=== PATIENT | male | born 1950 | race Caucasian/White ===

== ENCOUNTER 2019-05-08 14:24 | Outpatient (CLI) | payer MEDICARE, MEDICAID, SELFPAY ==
--- NOTE | 2019-05-08 14:35 | CT_ITS ---
WS: [id number] CT CHEST WITHOUT INTRAVENOUS CONTRAST HISTORY: Pulmonary nodule follow-up. TECHNIQUE: Contiguous 5 mm axial imaging performed on the thorax. Coronal and sagittal reformats are submitted. All CT scans at [facility] use at least one of these dose optimization techniq ues: automated exposure control; mA and/or kV adjustment per patient size (includes targeted exams wh ere dose is matched to clinical indication); or iterative reconstruction. CONTRAST: None DLP: 1004.38 mGycm COMPARISON: 04/07/2018, 06/24/2017 and 04/29/2016 Lungs and central airway: Paraseptal emphysematous changes. Mild groundglass attenuation throughout b oth lungs. Bilateral pleural thickening posteriorly. 3 mm noncalcified nodule in the lingula is stabl e over multiple prior years. Benign granuloma are also noted. Pleura: Very small bilateral pleural effusions are now evident. Heart and pericardium: Normal size heart. No pericardial effusion. Mediastinum and jonathan: Small mediastinal and hilar lymph nodes are stable. Several of these lymph node s contain central calcifications which are benign. Vessels: Mild atherosclerosis aorta with no aneurysm. Moderate to severe coronary artery calcificatio ns. Pulmonary size is normal. Chest wall and lower neck: No soft tissue masses. Upper abdomen: Extensive calcifications throughout the pancreas. Marked atrophy of the pancreas. Ther e is a new fluid collection at the pancreatic tail and inseparable from the stomach and hilum of the spleen. Fluid collection measures 3.0 x 2.6 cm. This collection is new since 06/03/2018 and probably re presents a pseudocyst associated with prior episodes of pancreatitis. There is a small amount of infl ammation in the LEFT upper quadrant. Osseous structures: Advanced degenerative changes throughout the thoracic spine. Disc space narrowing with sclerosis. CT/CT chest wo con [id number] IMPRESSION: 1. Stable 3 mm lingular pulmonary nodule and prior granulomatous disease. No a dditional follow-up necessary. 2. Paraseptal emphysema. 3. New circumscribed fluid collection inseparable from the pancreatic tail, st omach and pancreas. Collection measures 2.0 x 2.6 cm. May be a pseudocyst assoc iated with prior episodes of pancreatitis as described on 06/03/2018. Additional etiologies consider is cystic pancreatic mass. Recommend follow-up abdomen CT w ith contrast in 3-4 months. 4. Extensive calcifications of the pancreas probably from prior episodes of pa ncreatitis. 5. New very small bilateral pleural effusions. 6. Severe coronary artery atherosclerosis.
--- NOTE | 2019-05-08 14:35 | CT_ITS ---
WS: [id number] CT LUMBAR SPINE, noncontrast. HISTORY: LUMBAR AND SACRAL SPONDYLOLISTHESIS TECHNIQUE: Contiguous 2.5 mm axial imaging are performed. Sagittal and coronal reformats are submitte d and reviewed. All CT scans at [facility] use at least one of these dose optimization te chniques: automated exposure control; mA and/or kV adjustment per patient size (includes targeted exa ms where dose is matched to clinical indication); or iterative reconstruction. IV contrast: None DLP: 1294.01 mGycm COMPARISON: 11/17/2009. Same numbering pattern will be utilized on today's study as on the study from 11/17/2009. L4 anterolisthesis by 2 mm. Moderate and progressive degenerative disc disease and osteochondrosis si nce 2009. At L1-2 there is complete obliteration of the disc space with air. Sclerotic endplate martinez es in the vertebral bodies. Vacuum disc phenomenon from L1-2 to L4-5. No fracture. L1-2: Osteophytic ridging with mild bilateral foraminal narrowing. L2-3: Mild diffuse disc bulging and osteophytic ridging. Mild central narrowing. L3-4: Diffuse annular disc bulging. Mild central and foraminal stenosis. L4-5: Diffuse annular disc bulging with marked facet and ligamentum flavum hypertrophy. Mild central and bilateral foraminal stenosis. L5-S1: No significant stenosis. Partial sacralization on the RIGHT. Extensive calcification within the aorta and common iliac arteries. There is evidence for aortobifemo ral bypass surgery. CT/CT lumbar spine wo con* [id number] IMPRESSION: 1. Progressive degenerative spondylitic changes in the lumbar spine. Most sign ificant at L1-2. Near complete loss of the disc space height with osteochondros is. 2. Mild central and bilateral foraminal stenosis at L3-4 and L4-5 and mild josé miguel tral stenosis at L2-3.
== END 2019-05-08 14:25 | disposition home or self-care (01) ==
LOC: RADWPI 14:28
PROVIDERS: Family Provider Family Medicine; PCP Family Medicine; Visit Provider Family Medicine
DX: M43.18 Spondylolisthesis, sacral and sacrococcygeal region (principal); M43.16 Spondylolisthesis, lumbar region; M48.061 Spinal stenosis, lumbar region without neurogenic claudication
CPT/HCPCS: 71250; 72131

== ENCOUNTER 2019-06-08 09:24 | Outpatient (CLI) | payer MEDICARE, MEDICAID, SELFPAY ==
--- NOTE | 2019-06-08 09:28 | USCV_ITS ---
Jack June Age: 68 Gender: M : 1950 Exam Date: 06/08/2019 09:39 Ordering Phys: Jono Stone MD Technologist: Christopher Garcia Exam Location[place] [facility] [place]: BP: 128 / 72 HR: 76 Rhythm: Sinus Technical Quality: Adequate MEASUREMENTS (Male / Female) Normal Values 2D ECHO LV Diastolic Diameter PLAX 4.9 cm 4.2 - 5.9 / 3.9 - 5.3 cm LV Systolic Diameter PLAX 3.6 cm IVS Diastolic Thickness 1.0 cm 0.6 - 1.0 / 0.6 - 0.9 cm IVS Systolic Thickness 1.2 cm LVPW Diastolic Thickness 1.2 cm 0.6 - 1.0 / 0.6 - 0.9 cm LVPW Systolic Thickness 1.5 cm LVOT Diameter 2.0 cm LV Ejection Fraction 2D Teich 51.0 % LV Ejection Fraction MOD 2C 37.0 % LV Ejection Fraction 2C AL 37.9 % LA Diameter 4.9 cm LA Width 3.9 cm LA Height 5.6 cm RA Width 3.4 cm RA Height 3.8 cm M-MODE LV Diastolic Diameter MM 5.8 cm 4.2 - 5.9 / 3.9 - 5.3 cm LV Systolic Diameter MM 3.7 cm LV Ejection Fraction MM Teich 65.5 % IVS Diastolic Thickness MM 1.4 cm 0.6 - 1.0 / 0.6 - 0.9 cm IVS Systolic Thickness MM 2.1 cm LVPW Diastolic Thickness MM 1.4 cm 0.6 - 1.0 / 0.6 - 0.9 cm LVPW Systolic Thickness MM 2.7 cm RV Diastolic Diameter MM 1.2 cm Aortic Annulus Diameter 3.4 cm LA Ao Ratio MM 1.4 MV E Point Septal Separation 1.6 cm DOPPLER AV Peak Velocity 151.0 cm/s LVOT Peak Velocity 81.0 cm/s AV Area Cont Eq vti 1.7 cm squared AV Area Cont Eq pk 1.7 cm squared MV Area PHT 1.8 cm squared Mitral E to A Ratio 1.0 MV E' Velocity 6.0 cm/s Mitral E to MV E' Ratio 27.4 Mitral E to LV E' Lateral Ratio 23.2 Mitral E to LV E' Septal Ratio 34.3 TR Peak Velocity 160.0 cm/s TR Peak Gradient 10.2 mmHg TV Peak E Velocity 59.0 cm/s Right Atrial Pressure 3.0 mmHg Pulmonary Artery Systolic Pressu 13.2 mmHg FINDINGS Left Ventricle Normal left ventricular cavity size. Mildly reduced left ventricular systolic function. No regional wall motion abnormalities except mild global hypokinesia. Left ventricular ejection fraction is estimated at 50 %. Grade I/IV diastolic dysfunction (abnormal relaxation filling pattern), normal to mildly elevated filling pressures. Right Ventricle The right ventricle is normal in size and function. Right Atrium The right atrium is normal in size. Left Atrium Moderately increased left atrial size. Mitral Valve Moderately thickened mitral valve. No mitral valve stenosis. Moderate mitral valve regurgitation. Aortic Valve Structurally normal aortic valve without significant sclerosis or stenosis. There is no aortic regurgitation. Tricuspid Valve Structurally normal tricuspid valve without significant stenosis or regurgitation. Pulmonary artery systolic pressure is normal. Pulmonic Valve Trace pulmonary valve regurgitation. Pericardium Normal pericardium without effusion. Aorta Normal ascending aorta dimension. CONCLUSIONS 1-Normal left ventricular cavity size. Mildly reduced left ventricular systolic function. No regional wall motion abnormalities except mild global hypokinesia. Left ventricular ejection fraction is estimated at 50 %. Grade I/IV diastolic dysfunction (abnormal relaxation filling pattern), normal to mildly elevated filling pressures. 2-Moderately increased left atrial size. 3-Moderately thickened mitral valve. No mitral valve stenosis. Moderate mitral valve regurgitation. 4-Structurally normal aortic valve without significant sclerosis or stenosis. There is no aortic regurgitation. 5-There is no pericardial effusion. 6-Pulmonary artery systolic pressure is within normal limits. 7-Right atrial pressure is around 5 mm of mercury. 8-No significant change since the prior echocardiogram study of 10/25/2016. Gunnar Cervantes MD (Electronically Signed) Final Date: 09 June 2019 16:35 S
== END 2019-06-08 09:25 | disposition home or self-care (01) ==
LOC: US 09:26
PROVIDERS: Family Provider Family Medicine; PCP Family Medicine; Visit Provider Family Medicine
DX: I47.1 Supraventricular tachycardia (principal); I34.0 Nonrheumatic mitral (valve) insufficiency
CPT/HCPCS: 93306

== ENCOUNTER 2019-06-25 09:53 | Outpatient (CLI) | payer MEDICARE, MEDICAID, SELFPAY ==
--- NOTE | 2019-06-25 10:30 | CT_ITS ---
WS: [id number] CT ANGIOGRAM CAROTID ARTERIES HISTORY: Carotid artery stenosis TECHNIQUE: CT angiogram is performed of the carotid arteries. During arterial injection imaging is ob tained from the skull base to the aortic arch in 1.25 mm imaging. Coronal and sagittal reformats are submitted, MIP imaging also reviewed. Additional multiplanar reformats of the carotid arteries are mortensen bmitted. NASCET criteria utilized. All CT scans at [facility] use at least one of these d ose optimization techniques: automated exposure control; mA and/or kV adjustment per patient size (in cludes targeted exams where dose is matched to clinical indication); or iterative reconstruction. CONTRAST: Omnipaque 350; 95 mL IV. DLP: 990.0 mGycm COMPARISON: 08/30/2018 Carotid ultrasound 03/15/2019 Right carotid: Common carotid artery: Arises normally from the innominate artery. Scattered calcified plaque with no stenosis. Internal carotid artery: Heavy calcified plaque at the carotid bifurcation extending into the proxima l ICA. Very high-grade stenosis in the proximal ICA, just distal to the largest amount of plaque at t he bifurcation. There is a prominent loop in the proximal ICA with stenosis measuring 75%. Visually t he stenosis appears closer to 90%. External carotid artery: Moderate narrowing proximal external carotid artery. Left carotid: Common carotid artery: Mild atherosclerosis at the origin from the arch. Scattered plaque in the dist al common carotid. Internal carotid artery: LEFT ICA stent is patent. External carotid artery: Patent. Right vertebral artery: Scattered calcified plaque and small caliber LEFT vertebral artery. Left vertebral artery: Arises normally from the LEFT subclavian artery. There is a moderate amount of calcified plaque at the origin. Subclavian arteries: No stenosis or abnormality identified. Upper thorax: Paraseptal emphysema. Small mediastinal and hilar lymph nodes. Thyroid gland: Normal. Osseous structures: Advanced degenerative disc disease with sclerotic bone changes at C5-6. Skull base: Extensive atherosclerosis of the intracranial carotid arteries. CT/CT angio neck [id number] IMPRESSION: 1. High-grade stenosis proximal RIGHT ICA. Stenosis calculated at 75%. Visuall y the stenosis appears closer to 90%. 2. Prior LEFT ICA stent is patent with no significant stenosis. 3. Congenitally small RIGHT vertebral artery. 4. Chronic emphysema.
[2019-06-25] MEDS: iohexol 350 mg/mL 100 mL Btl IV (10:54)
== END 2019-06-25 09:54 | disposition home or self-care (01) ==
LOC: RADWPI 10:02
PROVIDERS: Family Provider Family Medicine; PCP Family Medicine; Visit Provider Internal Medicine Cardiovascular Disease
DX: I65.23 Occlusion and stenosis of bilateral carotid arteries (principal); J43.9 Emphysema, unspecified
CPT/HCPCS: 70498; Q9967

== ENCOUNTER 2019-10-23 09:23 | Outpatient (CLI) | payer MEDICARE, MEDICAID, SELFPAY ==
--- NOTE | 2019-10-23 09:28 | CT_ITS ---
WS: [id number] CT ABDOMEN CONTRAST TECHNIQUE: Contrast enhanced CT of the abdomen with coronal and sagittal reformatted images. CLINICAL INFORMATION: PANCREATIC ABNORMALITY COMPARISON: CT 3 2018 DLP: 802.[address] scans at [facility] use at least one of these dose optimization techniques: automat ed exposure control; mA and/or kV adjustment per patient size (includes targeted exams where dose is matched to clinical indication); or iterative reconstruction. FINDINGS: Again seen are findings of chronic calcific pancreatitis. Pancreatic ductal dilatation progressed sin ce the prior examination. Peripheral enhancing low-attenuation lesion involving the pancreatic tail i s new from previous likely representing pseudocyst in this patient with chronic pancreatitis. This me asures approximately 4.5 x 4.4 CM. Additional smaller pseudocysts are lobular pancreatic dilatation a long the body of the pancreas measuring 18 mm. Portal vein and splenic vein are patent patent. Adrenal glands are normal. Normal renal parenchymal e nhancement. Right renal cortical atrophy. Slight atelectasis in the lung bases. Normal caliber abdomi nal aorta with dense aortic calcification. Degenerative disc disease with disc space narrowing worse at T9-T10 and and L1-2. L5 is sacralized t he right CT/CT abdomen w con* [id number] IMPRESSION: 1. Changes of chronic pancreatitis with dense calcification and pancreatic atr ophy. 2. Lobular dilatation of the pancreatic duct with low-attenuation lesion invol ving the pancreatic tail.. This measures 4.4 x 4.5 cm most likely represents ps eudocyst. Serous and mucinous neoplasm not entirely excluded. This can be furth er evaluated with ERCP and/or short interval follow-up [address] abdomen pelvi s contrast 3. Right renal cortical atrophy. 4. No other significant changes from previous.
[2019-10-23] MEDS: iohexol 300 mg/mL 100 mL Btl IV (09:55)
== END 2019-10-23 09:24 | disposition home or self-care (01) ==
LOC: RADWPI 09:26
PROVIDERS: Family Provider Family Medicine; PCP Family Medicine; Visit Provider Family Medicine
DX: Q45.3 Other congenital malformations of pancreas and pancreatic duct (principal); K86.89 Other specified diseases of pancreas; N26.1 Atrophy of kidney (terminal)
CPT/HCPCS: 74160; Q9967

== ENCOUNTER 2019-10-29 05:44 | Inpatient (IN) | payer MEDICARE, MEDICAID, SELFPAY ==
--- NOTE | 2019-10-24 11:14 | ANES.PREANE2 ---
Pre-Anesthetic Assessment Pre-Anesthetic Assessment: Height/Weight: Height 1.75 m Weight 92.986 kg Preop Diagnosis: right carotid endarterectomy Proposed Procedure: Operation Date: 10/29/19 08:30 Proposed Procedures p Carotid Endarterectomy(Right) - Truong Kirby MD Familial anesthetic complications: None Social: Social History: Tobacco and No alcohol Exam: Pre-Anes Outpt Exam: alert, oriented x 3, clear to auscultation bilaterally and regular rate & rhythm Airway: Cervical ROM: WNL MP: 2 Dentition: False and Other (missing) Pulmonary: Pulmonary: COPD CV/HEM: CV/HEM: CAD (2-3 stents last one 2-3 years ago- clopidogrel (last took yesterday)), HTN and RI (2-3 years) Comments: Mitral regruge Metabolic: Metabolic: DM, Hyperlipidemia and Morbid obesity Neuropsych: Comments: carotid stenosis Anesthetic Plan: ASA status: 4 Anesthesia: General Risk of > 500 ml blood loss (7ml/kg in children): No PFSH Anesthesia PFSH: Medical History (Updated 10/11/19 @ 14:41 by Truong Kirby MD) BPH (benign prostatic hyperplasia) Carotid stent occlusion COPD (chronic obstructive pulmonary disease) Erectile dysfunction Hypertension Mitral regurgitation Surgical History S/P carotid endarterectomy Family History Father , AT AGE 63 CAD (coronary artery disease) Mother , AT AGE 93 No problems noted. Social History Smoking and tobacco status: current every day smoker cigarettes Packs smoked per day: 1 Alcohol intake: never Marital status: service: Yes Current occupational status: disabled History of recent travel: No Data Anesthesia Cardiac Studies: No Data to Display
[2019-10-24 11:22] LABS: Add Urine Microscopic? NO
[2019-10-24 11:35] LABS: INR 0.94 (0.8-1.2)
[2019-10-24 11:36] LABS: Basophils % 0.2 %; Eosinophils # 0.2 10^3/uL (0.0-0.8); Eosinophils % 2.8 %; Hematocrit 42.9 % (42.0-52.0); Hemoglobin 13.6 g/dL (11.7-16.6); Lymphocytes # 1.3 10^3/uL (0.8-4.8); Lymphocytes % 16.3 %; Mean Corpuscular HGB Conc 31.7 g/dL (30.0-36.0); Mean Corpuscular Hemoglobin 31.5 pg (28.0-34.0); Mean Corpuscular Volume 99.3 fL (80-94); Mean Platelet Volume 11.8 fL (7.4-10.4); Monocytes # 1.2 10^3/uL (0.2-0.9); Monocytes % 14.1 %; Neutrophils # 5.39 10^3/uL (1.8-7.7); Neutrophils % 66.2 %; Nucleated Red Blood Cells % 0 %; Platelet Count 138 10^3/cmm (130-400); Red Blood Count 4.32 10^6/uL (4.1-5.3); Red Cell Distribution Width 13.6 % (12.1-15.1); White Blood Count 8.2 10^3/uL (4.0-10.0)
[2019-10-24 11:41] LABS: Blood Urea Nitrogen 21 mg/dL (8-23); Calcium 9.6 mg/dL (8.5-10.5); Carbon Dioxide 27 mmol/L (22-29); Chloride 102 mmol/L (98-107); Glomerular Filtration Rate 60.2 mL/min (90-130); Glucose 109 mg/dL (65-115); Osmolality Calculated 283 mOsm/kg (285-295); Sodium 138 mmol/L (136-145)
[2019-10-24 12:29] LABS: Bilirubin Urine Neg (NEGATIVE); Blood Urine Neg (Negative); Glucose Urine UA Norm (Normal); Ketones Urine Negative (Negative); Leukocyte Esterase Urine Negative (Negative); Nitrate Urine Negative (Negative); Protein Urine Neg (Negative); Urine Appearance Clear (CLEAR); Urine Color Yellow (Yellow); Urobilinogen Urine Norm (Negative); pH Urine 5 (5-7)
[2019-10-26 07:17] LABS: Coronavirus Lab Test PTC NOT DETECTED
[2019-10-29] VITALS (17 sets, daily range): BP systolic 96–159; BP diastolic 45–64; PULSE 51–73; RESP 12–21; TEMP 36.5–36.7; O2SAT 92–99; BMI 30.2
--- NOTE | 2019-10-29 05:52 | XRR_ITS ---
PROCEDURE INFORMATION: Exam: XR Chest, 1 View Exam date and time: 10/29/2019 6:21 AM Age: 68 years old Clinical indication: Pre-operative exam; Cardiovascular screening and respiratory screening exam; Additional info: Carotid endarterectomy right TECHNIQUE: Imaging protocol: XR of the chest Views: 1 view. COMPARISON: [place] chest [facility] [place] [id number] 05/08/2019 2:41 PM FINDINGS: Lungs: Hyperinflation of the lungs with changes of COPD. No consolidation. Pleural space: No pleural effusion. No pneumothorax. Heart/Mediastinum: No cardiomegaly. Bones/joints: No acute fracture. XR/XR chest 1V portable [id number] IMPRESSION: No acute findings.
--- NOTE | 2019-10-29 05:52 | ECG_ITS ---
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 Measurements Intervals [place] Rate: 75 P: 11 WA: 187 QRS: -61 QRSD: 115 T: 71 QT: 364 QTc: 409 Interpretive Statements SINUS RHYTHM WITH SINUS ARRHYTHMIA PATTERN CONSISTENT WITH PULMONARY DISEASE LEFT ANTERIOR FASCICULAR BLOCK [QRS AXIS <= -45, QR IN I, RS IN II] Compared to ECG 10/27/2016 04:50:07 Left anterior fascicular block now present Intraventricular conduction delay no longer present Poor R-wave progression no longer present Electronically Signed On 10-29-2019 21:39:54 CDT by Aleksandra Potts M.D. [email or web address].Kuke Musicfranklin county memorial hospitalLockboxlouis stokes [id number]
[2019-10-29] MEDS: sodium chloride 0.9% 1,000 ML 30 ML IV (06:29)
[2019-10-29] MEDS: ipratropium-albuterol 3 mL Neb INHALATION (07:46)
--- NOTE | 2019-10-29 08:15 | W.PM.OPSUD ---
Surgery/Procedure H&P Update DATE OF PROCEDURE: October 29, 2019 DATE H&P PERFORMED: 10/11/19 H&P UPDATE INFORMATION: I have reviewed H&P completed within last 30 days, I have examined patient prior to procedure and No changes to prior documentation PREOP DIAGNOSIS: right carotid endarterectomy PRIMARY INDICATION FOR PROCEDURE: High-grade right internal carotid artery stenosis calculated at 75% though visually felt to be closer to 90% upon radiology interpretation. Rationale for surgery was carefully discussed Mr. June. Rationale to attempt to reduce his statistical increased risk for spontaneous CVA related to this lesion was reviewed. Risk of surgery including risk of bleeding, stroke, phonation difficulties, swallowing difficulties, restenosis, or inability to complete the procedure were frankly discussed. Appropriate consents have been reviewed and signed. PLANNED PROCEDURE: Operation Date: 10/29/19 07:45 Proposed Procedures p Carotid Endarterectomy(Right) - Truong Kirby MD
[2019-10-29] MEDS: heparin,porcine 1,000 unit/mL INJ 1 mL 1000 UNIT IRRIGATION (09:00)
[2019-10-29] MEDS: vancomycin 1,000 MG SDV 1000 MG IRRIGATION (09:17)
--- NOTE | 2019-10-29 11:48 | PC.NURSE ---
1130 Patient to ICU 5 via bed by OR staff. Vitals WNL. Patient moves all 4 extremities, no facial weakness, DAIJA, patient drowsy.
--- NOTE | 2019-10-29 11:59 | PM.OP ---
Operative Report Date of procedure: October 29, 2019 Pre-op Diagnosis: right internal carotid artery stenosis Post-op diagnosis: same Procedure Done: Right carotid endarterectomy with patch angioplasty Implants: Hemashield patch Specimens removed/disposition: Carotid artery plaque Surgeon: Truong Kirby Anesthesia: General Complications: None: Grossly neurologically intact immediately postop Condition: stable Disposition: ICU Brief History: 68-year-old gentleman with known carotid artery disease status post attempted left carotid endarterectomy which resulted in subsequent carotid artery stent several years ago. He now presents during surveillance with a right carotid artery stenosis at the bifurcation which is been determined to be 75% by CTA measurement though radiology states that visually it appears to be 90%. Correction of this stenosis was recommended to reduce the statistical increased risk for spontaneous CVA. The option of carotid endarterectomy versus referral for carotid stenting was discussed with Mr. June. He wished to proceed with surgery as opposed to primary stenting. Details the risk of the procedure were again carefully and frankly discussed. A proper consents have been reviewed and signed. Procedure: Mr. June was placed on the OR table and underwent general endotracheal anesthesia with a neurological monitoring endotracheal tube as well as placement of a right radial arterial line. Bihemispheric monitoring pads were placed as well as grounding and sensing pads for nerve conduction evaluation during neck dissection.The entire upper chest and right neck were sterilely prepped and draped. Incision was made along the anterior border of the sternomastoid muscle and carried down to the platysma with cautery. Dissection from this point forward was carried out utilizing Metzenbaum scissors and limited use of bipolar cautery. The internal jugular vein was dissected free and the facial vein was ligated, oversewn, and divided. Dissection was continued down through the ansa cervicalis with preservation of major branches. Minor branches were divided if required to allow for adequate exposure. Nerve conduction evaluation was performed throughout the dissection for protection of the recurrent nerve. We confirmed proper monitoring function by receiving positive feedback with touching of the vagus nerve. We subsequently reached the common carotid artery. There was a fairly intense inflammatory response throughout the course of the carotid inside the sheath. I suspect this was a similar finding from his prior left carotid endarterectomy that resulted in aborting the procedure and proceeding to a carotid stent. Dissection was then continued proximally to distally across the bifurcation. Vessel loops were placed around the common carotid artery, internal carotid artery, and external carotid artery. Distally, the base of the hypoglossal nerve could be identified and was protected. The internal carotid artery disease went fairly high and extended above the level of the mandibular angle. This did require some traction in this region, but great care was taken to minimize pressure to the hypoglossal nerve, which was protected. Care was taken during this dissection to avoid injury to the vagus nerve. The patient was then heparinized with 10,000 units. The systolic blood pressure was elevated to 160. Following this, in a rapid sequenced fashion, the distal internal carotid artery was clamped followed by clamping of the common carotid artery and external carotid artery. #11 scalpel blade was used to open the common carotid artery proximally. Steiner scissors were then utilized to extend this arteriotomy across the distal common carotid artery and ulcerated very stenotic plaque and continue this further at the bifurcation across the calcific plaque in the internal carotid artery until we had reached normal intima. The internal carotid artery clamp was briefly flashed with evidence of brisk back bleeding, therefore we elected not to shunt. It should be noted that bi-hemispheric oximetry was recorded throughout the procedure. Next, a freer elevator was utilized to create a dissection plane the plaque from intima at the proximal portion of the arteriotomy. This was then divided with a #11 scalpel blade. This plaque was then further dissected along the intimal plane proximally to distally across the bifurcation. Utilizing an everting technique, plaque was removed from the external carotid artery with brisk flow. This plaque was then dissected free up the internal carotid artery to a feathered edge. Heparinized saline solution was utilized to remove any loose debris. Next, a Hemashield patch was brought into the field and sewn into position utilizing a running 6-0 Prolene suture, thereby completing our patch angioplasty. At the completion of the patch, the external carotid artery was opened followed by the common carotid artery and finally the internal carotid artery, thereby reestablishing cerebral flow. Areas of extravasation were repaired with 6-0 Prolene suture. After 5 minutes, heparin was reversed with protamine. Hemostasis was confirmed. The wound was irrigated with antibiotic solution. A small, flat, Elgin-Kearns drain was placed in the wound and connected to bulb suction. Sponge and needle count was correct. The wound was then closed in 2 layers of 3-0 Vicryl suture. Skin was reapproximated in a subcuticular manner with 4-0 Monocryl suture. A pressure dressing was then applied. The patient was awakened from anesthesia and spontaneous movement of all extremities as well as movement to command was noted. The patient was then transferred to the ICU in stable condition. We did certified travel counselor with his sister at completion of the procedure. Mr. June will be monitored in the ICU for the next 24 hours.
[2019-10-29] MEDS: morphine 4 mg/mL SDV 1 mL 2 MG IVP (12:33)
--- NOTE | 2019-10-29 12:35 | PC.RESP ---
Smoking Cessation and Pulmonary Rehab information sent to patient.
[2019-10-29 12:47] LABS: Glucose Point of Care 182 mg/dL (70-110)
[2019-10-29] MEDS: HYDROcodone-acetaminophen 5-325 mg Tablet 1 TAB PO ×2 (12:55→16:35)
[2019-10-29] MEDS: lactated ringers 1,000 ML 100 ML IV ×2 (12:56→23:36)
[2019-10-29] MEDS: sodium chloride 0.9% 500 ML 999 ML IV (13:57)
--- NOTE | 2019-10-29 13:58 | PC.NURSE ---
LEFT EYE PAIN patient complains of left eye pain. No visual field deficits, DAIJA. Patient states this does happen occasionally. No neuro deficits.
--- NOTE | 2019-10-29 16:55 | PC.NURSE ---
Arterial line removed, no complications, site covered with 2x2 and bioocclusive.
[2019-10-29] MEDS: aspirin 81 mg Chew Tablet PO (17:30)
[2019-10-29] MEDS: ceFAZolin 1,000 MG in sodium chloride 0.9% (plus) 50 ML 100 MG IV (17:30)
[2019-10-29] MEDS: oxyCODONE-APAP 5-325 mg Tablet 1 TAB PO (20:22)
[2019-10-29] MEDS: trazodone 150 mg Tablet 300 MG PO (20:23)
[2019-10-30] VITALS (13 sets, daily range): BP systolic 102–142; BP diastolic 44–57; PULSE 56–87; RESP 12–20; TEMP 36.9; O2SAT 86–97
[2019-10-30] MEDS: ceFAZolin 1,000 MG in sodium chloride 0.9% (plus) 50 ML 100 MG IV ×2 (00:25→08:18)
[2019-10-30] MEDS: morphine 4 mg/mL SDV 1 mL 2 MG IVP (00:26)
[2019-10-30] MEDS: HYDROcodone-acetaminophen 5-325 mg Tablet 1 TAB PO (03:41)
[2019-10-30 04:20] LABS: Basophils % 0.1 %; Hemoglobin 11.3 g/dL (11.7-16.6); Lymphocytes % 9.9 %; Mean Corpuscular HGB Conc 31.4 g/dL (30.0-36.0); Mean Corpuscular Hemoglobin 32.1 pg (28.0-34.0); Mean Corpuscular Volume 102.3 fL (80-94); Mean Platelet Volume 11.9 fL (7.4-10.4); Monocytes # 1.2 10^3/uL (0.2-0.9); Neutrophils # 7.94 10^3/uL (1.8-7.7); Neutrophils % 77.7 %; Nucleated Red Blood Cells % 0 %; Platelet Count 119 10^3/cmm (130-400); Red Blood Count 3.52 10^6/uL (4.1-5.3); Red Cell Distribution Width 14.3 % (12.1-15.1); White Blood Count 10.2 10^3/uL (4.0-10.0)
[2019-10-30 05:08] LABS: Alanine Aminotransferase 18 U/L (0-41); Albumin Level 3.4 g/dL (3.5-5.2); Alkaline Phosphatase 54 IU/L (40-130); Anion Gap 12.8 (5-19); Aspartate Amino Transferase 22 U/L (0-40); Blood Urea Nitrogen 33 mg/dL (8-23); Calcium 7.8 mg/dL (8.5-10.5); Carbon Dioxide 21 mmol/L (22-29); Chloride 106 mmol/L (98-107); Globulin 2.4 g/dL (1.3-4.6); Glomerular Filtration Rate 50.4 mL/min (90-130); Glucose 111 mg/dL (65-115); Osmolality Calculated 278 mOsm/kg (285-295); Potassium 4.8 mmol/L (3.5-5.1); Sodium 135 mmol/L (136-145); Total Bilirubin 0.2 mg/dL (0.15-1.2); Total Protein 5.8 g/dL (6.6-8.7)
--- NOTE | 2019-10-30 07:02 | P.DS_ITS ---
Discharge Providers Date of Admission: 10/29/19 05:44 Date of Discharge: October 30, 2019 Attending Provider at Admission: Truong Kirby MD Attending Provider at Discharge: Truong Kirby MD Primary Care Provider: Jono Stone MD Diagnoses at Discharge Discharge Diagnosis (1) S/P carotid endarterectomy: Status: Acute Reason for Visit Reason for Visit: carotid Hospital Course Hospital Course: 68-year-old gentleman with a high-grade right ICA stenosis of 75% though visually appears to be close to 90%, with prior history for left carotid endarterectomy which was aborted for carotid stent. Elective right carotid endarterectomy recommended to reduce the statistical increased risk for spontaneous CVA related to this high-grade lesion. He was electively admitted yesterday underwent carotid endarterectomy on the right side with patch ang ioplasty. Postoperative, he convalesced in the ICU where he remained neurologically intact and stable. Low RAMÓN drain output. Pain under good control. RAMÓN drain was discontinued this morning. Incision is clean and dry. No swallowing difficulties. No phonation problems. He will be discharged home today in stable condition. Physical Exam Const: COMMON NORMALS: patient oriented x3 Neck/C-Spine: COMMON NORMALS: no lymphadenopathy, supple and No carotid bruits OTHER: Right neck incision is intact and healing well. RAMÓN drain removed without difficulty. Low RAMÓN drain output overnight. Neuro: COMMON NORMALS: patient oriented x3, no focal motor deficits and no sensory deficits noted Urinary Catheter Management^: Foreman: Cath Placed During This Visit: yes, but has since been removed by the nurse Reason for Continuing Indwelling Catheter: Not indwelling catheter Urinary Catheter Date of Insertion: 10/29/19 Urinary Catheter Time of Insertion: 08:55 Date Urinary Catheter Removed: 10/29/19 Time Urinary Catheter Discontinued: 18:33 Discharge Data Data Completed and Pending: Completed Studies During Hospitalization Category Date Time Status XR chest 1V donald ble [id number] Routine Exams 10/29/19 05:52 Completed Pending at discharge Category Date Time Status Leukocyte Reduced RBC Routine Lab 10/24/19 11:00 Results Type and Screen - Cardiac Routine Lab 10/24/19 11:00 Results Pathology: Surgic al [PTH] Routine Pth 10/29/19 10:35 Received Labs from last 24 hours 10/30/19 10/30/19 10/29/19 04:00 04:00 12:42 WBC 10.2 H RBC 3.52 L Hgb 11.3 L Hct 36.0 L MCV 102.3 H MCH 32.1 MCHC 31.4 RDW 14.3 Plt Count 119 L MPV 11.9 H Neut % (Auto) 77.7 Lymph % (Auto) 9.9 [place] % (Auto) 12.0 Eos % (Auto) 0.0 Baso % (Auto) 0.1 Neut # (Auto) 7.94 H Lymph # (Auto) 1.0 [place] # (Auto) 1.2 H Eos # (Auto) 0.0 Baso # (Auto) 0.0 Nucleated RBC % (a uto) 0 Nucleated RBCs # 0.0 Sodium 135 L Potassium 4.8 Chloride 106 Carbon Dioxide 21 L Anion Gap 12.8 BUN 33 H Creatinine 1.4 H GFR Calculation 50.4 L Glucose 111 POC Glucose 182 Calculated Osmolal ity 278 L Calcium 7.8 L Magnesium 2.0 Total Bilirubin 0.2 AST 22 ALT 18 Alkaline Phosphata se 54 Total Protein 5.8 L Albumin 3.4 L Globulin 2.4 Blood Type Rho(D) Type Antibody Screen Crossmatch 10/24/19 11:00 WBC RBC Hgb Hct MCV MCH MCHC RDW Plt Count MPV Neut % (Auto) Lymph % (Auto) [place] % (Auto) Eos % (Auto) Baso % (Auto) Neut # (Auto) Lymph # (Auto) [place] # (Auto) Eos # (Auto) Baso # (Auto) Nucleated RBC % (a uto) Nucleated RBCs # Sodium Potassium Chloride Carbon Dioxide Anion Gap BUN Creatinine GFR Calculation Glucose POC Glucose Calculated Osmolal ity Calcium Magnesium Total Bilirubin AST ALT Alkaline Phosphata se Total Protein Albumin Globulin Blood Type A Positive Rho(D) Type Positive Antibody Screen Negative Crossmatch See Detail Vitals: Last Vital Signs Temp 98.4 F 10/30/19 00:00 Pulse 59 L 10/30/19 06:00 Resp 18 10/30/19 06:00 BP 127/54 10/30/19 06:00 Pulse Ox 96 10/30/19 06:00 Discharge Plan Discharge Patient Disposition: Home Condition: Stable Prescriptions: New aspirin 81 mg tablet,chewable 81 mg PO DAILY Qty: 100 RF: 0 Continued allopurinol 100 mg tablet 100 mg PO DAILY RF: 0 amlodipine 10 mg tablet 10 mg PO DAILY RF: 0 atorvastatin 40 mg tablet 40 mg PO DAILY RF: 0 isosorbide mononitrate 30 mg tablet extended release 24 hr 30 mg PO DAILY RF: 0 clopidogrel 75 mg tablet 75 mg PO DAILY RF: 0 spironolactone 25 mg tablet 25 mg PO DAILY RF: 0 tamsulosin 0.4 mg capsule 0.4 mg PO DAILY RF: 0 trazodone 150 mg tablet 300 mg PO BEDTIME RF: 0 albuterol sulfate [Ventolin HFA] 90 mcg/actuation HFA aerosol inhaler 1 puff INHALATION QID PRN (Reason: Wheezing) RF: 0 lisinopril 10 mg tablet 10 mg PO BID RF: 0 fluticasone propion-salmeterol [Advair Diskus] 250-50 mcg/dose blister with device 1 inh INHALATION BID RF: 0 Incruse Ellipta 62.5 mcg/actuation blister with device 1 inh INHALATION DAILY RF: 0 metoprolol tartrate 25 mg tablet 25 mg PO DAILY RF: 0 venlafaxine 150 mg capsule,extended release 24hr 150 mg PO DAILY RF: 0 Discharge Orders: Discharge Order (Routine); Ordered 10/30/19 Ordered By: Truong Kirby Referrals: Truong Kirby MD [Physician] - 11/08/19 Discharge Diet: Usual diet Discharge Activity: Limit activity as instructed Activity Restrictions/Additional Instructions: Remove surgical bandage tomorrow. May begin showers tomorrow. No swimming or tub baths x2 weeks. No heavy lifting or pulling x2 weeks. Report any neck swelling, incision redness, fever, or incision drainage. Discharge Attestations Time Spent in Discharge Care*: less than 30 min Specific Discharge Activities: Specific discharge activities: educating patient, discussing with assistant case manager/social workers/dc planners, documenting/other paperwork and evaluating patient/reviewing data Time Spent in Smoking Cessation: Time spent discussing smoking cessation with patient: 3 to 10 minutes Status at Discharge: Cognitive status at discharge: cognitively intact , Functional status at discharge: independent ambulation Overall status at discharge: patient is progressing back to baseline Quality Metrics Clinical Quality Measures During this hospital stay, did patient experience: None Coding Level of Care Code Acute It Business Analyst for [facility] Fwd Diagnoses S/P carotid endarterectomy Z98.890
[2019-10-30] MEDS: aspirin 325 mg Tablet PO (08:15)
[2019-10-30] MEDS: spironolactone 25 mg Tablet PO (08:15)
[2019-10-30] MEDS: venlafaxine ER (24HR) 150 mg Capsule PO (08:15)
[2019-10-30] MEDS: allopurinol 100 mg Tablet PO (08:15)
[2019-10-30] MEDS: tamsulosin 0.4 mg Capsule PO (08:15)
[2019-10-30] MEDS: atorvastatin 40 mg Tablet PO (08:16)
[2019-10-30] MEDS: amlodipine 10 mg Tablet PO (08:16)
[2019-10-30] MEDS: pantoprazole DR 40 mg Tablet PO (08:16)
[2019-10-30] MEDS: isosorbide mononitrate ER 30 mg Tablet PO (08:16)
[2019-10-30] MEDS: metoprolol tartrate 25 mg Tablet PO (08:16)
[2019-10-30] MEDS: lisinopril 10 mg Tablet PO (08:16)
--- NOTE | 2019-10-30 09:19 | PC.NURSE ---
Discharge Pt was taken to family members car by wheelchair at 0910. All belongings with patient at time
== END 2019-10-30 09:32 | disposition home or self-care (01) | DRG 39 ==
LOC: OR 06:01 → ICU 07:00
PROVIDERS: Admitting Provider Thoracic Surgery (Cardiothoracic Vascular Surgery); PCP Family Medicine; Visit Provider Thoracic Surgery (Cardiothoracic Vascular Surgery)
PROC: 03CK0ZZ Extirpation of Matter from Right Internal Carotid Artery, Open Approach (ICD-10-PCS; CPT 35301; principal; 2019-10-29 07:45)
DX: I65.21 Occlusion and stenosis of right carotid artery (principal); Z79.02 Long term (current) use of antithrombotics/antiplatelets; J44.9 Chronic obstructive pulmonary disease, unspecified; E78.5 Hyperlipidemia, unspecified; E66.01 Morbid (severe) obesity due to excess calories; Z68.30 Body mass index [BMI] 30.0-30.9, adult; I25.10 Atherosclerotic heart disease of native coronary artery without angina pectoris; Z95.5 Presence of coronary angioplasty implant and graft; I10 Essential (primary) hypertension; I25.2 Old myocardial infarction; I34.0 Nonrheumatic mitral (valve) insufficiency; N40.0 Benign prostatic hyperplasia without lower urinary tract symptoms; F17.210 Nicotine dependence, cigarettes, uncomplicated
CPT/HCPCS: 12345; 36415; 36416; 71045; 80048; 80053; 81003; 82962; 83735; 85025; 85610; 86850; 86900; 86920; 87635; 88304; 93005; 94640; 96375; J0330; J0690; J1100; J1644; J2250; J2270; J2370; J2405; J2704; J2720; J2765; J3010; J3370; J3490; J7030; J7040

== ENCOUNTER 2019-12-14 04:37 | Inpatient (IN) | payer MEDICARE, MEDICAID, SELFPAY ==
[2019-12-14] VITALS (19 sets, daily range): BP systolic 140–193; BP diastolic 67–102; PULSE 76–110; RESP 16–22; TEMP 36.6–37; O2SAT 87–99; BMI 29.5
--- NOTE | 2019-12-14 04:41 | XR_ITS ---
WS: [id number] Portable AP upright chest, 12/14/2019 Clinical Data: sob Comparison: Portable chest, 10/29/2019. Findings: No nodules, masses or effusions are seen. There is a minimal patchy opacity in the left low er lobe over the surface of left diaphragm. The heart is normal. The pulmonary vascularity is not inc reased. No pneumothorax is seen. The diaphragms are flattened. There is a dextroscoliosis of the thor acic spine. XR/XR chest 1V portable [id number] Impression: 1. Minimal patchy opacity in left lower lobe which could represent atelectasis or minimal pneumonia. 2. Hyperinflation.
--- NOTE | 2019-12-14 04:42 | ECG_ITS ---
[facility] Test Date: 2019-12-14 Pat Name: Jack June Department: Room: Gender: Male Relays Draftsperson: : 1950 Requested By: Bob Christopher Order Number: [id number] Elder MD: Mathieu Tejeda M.D. Measurements Intervals [place] Rate: 99 P: 48 WA: 181 QRS: -43 QRSD: 97 T: 47 QT: 314 QTc: 404 Interpretive Statements SINUS RHYTHM LEFT ATRIAL ENLARGEMENT [-0.15mV P WAVE IN V1/V2] LEFT AXIS DEVIATION [QRS AXIS < -30] INCOMPLETE RIGHT BUNDLE BRANCH BLOCK [90+ ms QRS DURATION, TERMINAL R IN V1/V2, 40+ ms S IN I/aVL/V4/V5/V6] Compared to ECG 10/29/2019 06:06:27 Atrial abnormality now present Left-axis deviation now present Incomplete right bundle-branch block now present Sinus arrhythmia no longer present Left anterior fascicular block no longer present Electronically Signed On 12-14-2019 14:59:02 CDT by Mathieu Tejeda M.D. [email or web address]
--- NOTE | 2019-12-14 04:46 | W.ED.ABDPA2 ---
Documented by User: Bob Christopher MD 12/14/19 05:27 HPI - Abdominal Pain General: Chief Complaint: Abdominal Pain Stated Complaint: abd pain Time Seen by Provider: 12/14/19 04:38 Source: patient and EMS Mode of arrival: EMS Limitations: no limitations History of Present Illness: HPI narrative: 69-year-old male who states he has a history of constipation has not had a bowel movement since 4 5 days ago. He states he has had increasing abdominal pain that got much worse tonight. He states the pain is in his left lower quadrant. He states the pain is sharp in nature. He denies any vomiting. He denies any fever. Patient also is a long-term smoker and states he has had some increased wheezing. Patient's pulse ox here is 89%. He states his pulse ox is typically a little low. He denies any chest pain. Denies any cough. MD elicited complaint: abdominal pain Pertinent past history: constipation Onset (ago): day(s) Pain Consistency: constant Location: LLQ Severity: moderate Quality: stabbing Radiation: none Migration to: no migration Exacerbating factors: nothing Relieving factors: nothing Associated Symptoms: Denies chills, dysuria and fever(s) Review of Systems Const: Denies: fever(s), chills, body aches or change in appetite Eyes: Denies: blurry vision or eye discomfort ENMT: Denies: throat pain or dental pain Card: Denies: chest pain Resp: Reports: wheezing GI: Reports: abdominal pain : Denies: dysuria Musc: Denies: neck pain or back pain Skin/Breast: Denies: rash Neuro: Denies: headache(s) Psych: Denies: depression Benjamin/Lymph: Denies: easy bruising All/Imm: Denies: urticaria PFSH ED PFSH: Medical History BPH (benign prostatic hyperplasia) Carotid stent occlusion COPD (chronic obstructive pulmonary disease) Coronary artery disease Diabetes mellitus Erectile dysfunction Hypertension Mitral regurgitation Peripheral arterial disease Surgical History History of aorto-femoral bypass History of coronary angioplasty with insertion of stent last PCI to mid LAD by Dr. Cervantes 10/26/16 History of inguinal hernia repair RIGHT Hx of appendectomy Hx of foot surgery RIGHT S/P carotid endarterectomy Family History Father , AT AGE 63 CAD (coronary artery disease) Mother , AT AGE 93 No problems noted. Social History (Updated 12/14/19 @ 15:33 by Priscilla Marie DO) Smoking and tobacco status: current every day smoker cigarettes Packs smoked per day: 1 Alcohol intake: former Former alcohol use details: occasional alcohol use in the past, denies any heavy alcohol use in the pas Marital status: service: Yes branch: [employer] Current occupational status: disabled History of recent travel: No Physical Exam Const: COMMON NORMALS: no acute distress, patient oriented x3 and healthy appearing HENMT: COMMON NORMALS: normocephalic and atraumatic HEAD & SCALP: normocephalic and atraumatic Eye: COMMON NORMALS: Equal, round and reactive pupils present and EOMs intact bilaterally PUPIL: Yes Equal, round and reactive pupils present Neck/C-Spine: COMMON NORMALS: full ROM and supple Chest: COMMONS NORMALS: normal inspection of the chest and normal palpation of entire chest wall Resp: COMMON NORMALS: normal respiratory effort, No retractions, No use of accessory muscles and clear to auscultation bilaterally AUSCULTATION: clear to auscultation bilaterally and wheezes Cardio: COMMON NORMALS: regular rate, regular rhythm and No murmurs present (Cardio) RATE: regular rate RHYTHM: regular rhythm GI: COMMON NORMALS: Normal to inspection, nondistended, normoactive bowel sounds present, Soft to palpation and no masses PALPATION: Yes Soft to palpation, Yes Firmness to palpation present (GI) and Yes Tenderness to palpation present (GI) Details: LUQ Extremity: COMMON NORMALS: normal to inspection and full ROM Neuro: COMMON NORMALS: patient oriented x3, moves all extremities and no focal motor deficits Psych: COMMON NORMALS: mental status grossly normal, Normal thought process present and cooperative THOUGHT PROCESS: Normal thought process present Skin: COMMON NORMALS: no rashes or lesions noted and no wounds GENERAL SKIN EXAM: no rashes or lesions noted Course Vital Signs: Vital signs: Vital Signs Temperature 98.6 F 12/14/19 21:08 Pulse Rate 106 H 12/14/19 21:08 Respiratory Rate 22 H 12/14/19 21:08 Blood Pressure 154/74 12/14/19 21:08 Pulse Oximetry 95 12/14/19 21:08 MDM - Abdominal Pain MDM Narrative: Medical decision making narrative: Patient presents here with abdominal pain. He does have a history of constipation and it could be causing his pain. He does have left lower quadrant tenderness and will get a CT of his abdomen. Patient also has wheezing. He is a longtime smoker and is likely undiagnosed COPD. Will CT his chest along with give breathing treatments. Patient's care turned over to Dr. Galeana to follow labs and CT. Lab Data: Labs: Lab Results 12/14/19 12/14/19 12/14/19 Range/Units 05:00 05:00 05:00 WBC 19.0 H (4.0-10.0) 10^3/ uL RBC 4.31 (4.1-5.3) 10^6/u L Hgb 13.7 (11.7-16.6) g/dL Hct 42.4 (42.0-52.0) % MCV 98.4 H (80-94) fL MCH 31.8 (28.0-34.0) pg MCHC 32.3 (30.0-36.0) g/dL RDW 13.6 (12.1-15.1) % Plt Count 150 (130-400) 10^3/c mm MPV 11.5 H (7.4-10.4) fL Neut % (Auto) 86.5 % Lymph % (Auto) 2.6 % [place] % (Auto) 10.1 % Eos % (Auto) 0.1 % Baso % (Auto) 0.2 % Neut # (Auto) 16.50 H (1.8-7.7) 10^3/u L Lymph # (Auto) 0.5 L (0.8-4.8) 10^3/u L [place] # (Auto) 1.9 H (0.2-0.9) 10^3/u L Eos # (Auto) 0.0 (0.0-0.8) 10^3/u L Baso # (Auto) 0.0 (0.0-0.1) 10^3/u L Nucleated RBC % (a uto) 0 % Nucleated RBCs # 0.0 /100WBC Fibrinogen (174-498) mg/dL D-Dimer (0-0.59) ug/mIFE U Sodium 133 L (136-145) mmol/L Potassium 4.5 (3.5-5.1) mmol/L Chloride 99 (98-107) mmol/L Carbon Dioxide 23 (22-29) mmol/L Anion Gap 15.5 (5-19) BUN 20 (8-23) mg/dL Creatinine 1.0 (0.7-1.2) mg/dL GFR Calculation 74.1 L (90-130) mL/min Glucose 177 H (65-115) mg/dL Calculated Osmolal ity 277 L (285-295) mOsm/k g Calcium 9.4 (8.5-10.5) mg/dL Ferritin (30-400) ng/mL Total Bilirubin 0.4 (0.15-1.2) mg/dL AST 16 (0-40) U/L ALT 13 (0-41) U/L Alkaline Phosphata se 68 (40-130) IU/L Lactate Dehydrogen ase (135-225) U/L C-Reactive Protein (0.0-4.9) mg/L NT-Pro-B Natriuret Pep 1015 H (0-125) pg/mL Total Protein 7.2 (6.6-8.7) g/dL Albumin 4.1 (3.5-5.2) g/dL Globulin 3.1 (1.3-4.6) g/dL Lipase 119 H (13-60) U/L Procalcitonin (0-0.5) ng/mL SARS-CoV-2 Ag (Rap id) (Negative) 12/14/19 12/14/19 12/14/19 Range/Units 05:00 05:00 08:55 WBC (4.0-10.0) 10^3/ uL RBC (4.1-5.3) 10^6/u L Hgb (11.7-16.6) g/dL Hct (42.0-52.0) % MCV (80-94) fL MCH (28.0-34.0) pg MCHC (30.0-36.0) g/dL RDW (12.1-15.1) % Plt Count (130-400) 10^3/c mm MPV (7.4-10.4) fL Neut % (Auto) % Lymph % (Auto) % [place] % (Auto) % Eos % (Auto) % Baso % (Auto) % Neut # (Auto) (1.8-7.7) 10^3/u L Lymph # (Auto) (0.8-4.8) 10^3/u L [place] # (Auto) (0.2-0.9) 10^3/u L Eos # (Auto) (0.0-0.8) 10^3/u L Baso # (Auto) (0.0-0.1) 10^3/u L Nucleated RBC % (a uto) % Nucleated RBCs # /100WBC Fibrinogen 613 H (174-498) mg/dL D-Dimer >= 20.00 H (0-0.59) ug/mIFE U Sodium (136-145) mmol/L Potassium (3.5-5.1) mmol/L Chloride (98-107) mmol/L Carbon Dioxide (22-29) mmol/L Anion Gap (5-19) BUN (8-23) mg/dL Creatinine (0.7-1.2) mg/dL GFR Calculation (90-130) mL/min Glucose (65-115) mg/dL Calculated Osmolal ity (285-295) mOsm/k g Calcium (8.5-10.5) mg/dL Ferritin 163 (30-400) ng/mL Total Bilirubin (0.15-1.2) mg/dL AST (0-40) U/L ALT (0-41) U/L Alkaline Phosphata se (40-130) IU/L Lactate Dehydrogen ase 154 (135-225) U/L C-Reactive Protein 96.5 H (0.0-4.9) mg/L NT-Pro-B Natriuret Pep (0-125) pg/mL Total Protein (6.6-8.7) g/dL Albumin (3.5-5.2) g/dL Globulin (1.3-4.6) g/dL Lipase (13-60) U/L Procalcitonin 0.39 (0-0.5) ng/mL SARS-CoV-2 Ag (Rap id) Negative (Negative) Discharge Plan Discharge Patient Disposition: Admitted As Inpatient Admit Provider: Priscilla Marie Clinical Impression: Pneumonia, Chronic pancreatitis Condition: Stable Referrals: Jono Stone MD [Primary Care Provider] - Discharge Date/Time: 12/14/19 12:09 Sign Out Sign Out Data: Patient Sign Out occurred on 12/14/19 at 05:51. Patient's care was discussed, and care was transferred from to Lasha Serrano DO. Coding Level of Care Code ED Inspector Repairer [place] for Chg Fwd Exam Comprehensive Documented by User: Lasha Serrano DO 12/15/19 12:34 HPI - Abdominal Pain General: Chief Complaint: Abdominal Pain Stated Complaint: abd pain Time Seen by Provider: 12/14/19 04:38 PFSH ED PFSH: Medical History BPH (benign prostatic hyperplasia) Carotid stent occlusion COPD (chronic obstructive pulmonary disease) Coronary artery disease Diabetes mellitus Erectile dysfunction Hypertension Mitral regurgitation Peripheral arterial disease Surgical History History of aorto-femoral bypass History of coronary angioplasty with insertion of stent last PCI to mid LAD by Dr. Cervantes 10/26/16 History of inguinal hernia repair RIGHT Hx of appendectomy Hx of foot surgery RIGHT S/P carotid endarterectomy Family History Father , AT AGE 63 CAD (coronary artery disease) Mother , AT AGE 93 No problems noted. Social History (Updated 12/14/19 @ 15:33 by Priscilla Marie DO) Smoking and tobacco status: current every day smoker cigarettes Packs smoked per day: 1 Alcohol intake: former Former alcohol use details: occasional alcohol use in the past, denies any heavy alcohol use in the pas Marital status: service: Yes branch: [employer] Current occupational status: disabled History of recent travel: No Course Vital Signs: Vital signs: Vital Signs Temperature 98.6 F 12/14/19 21:08 Pulse Rate 106 H 12/14/19 21:08 Respiratory Rate 22 H 12/14/19 21:08 Blood Pressure 154/74 12/14/19 21:08 Pulse Oximetry 95 12/14/19 21:08 MDM - Abdominal Pain MDM Narrative: Medical decision making narrative: he has evidence of previous pancreatitis there is a mild elevation of lipase. He also has evidence of pneumonia bilaterally on the chest x-ray. We will go ahead and start on ceftriaxone and Zithromax and other testing for COVID. Harriet case with Dr. Marie will go ahead and admit consult general surgery he has abnormalities in the pancreas that have increased in size. Orders written Lab Data: Labs: Lab Results 12/14/19 12/14/19 12/14/19 Range/Units 05:00 05:00 05:00 WBC 19.0 H (4.0-10.0) 10^3/ uL RBC 4.31 (4.1-5.3) 10^6/u L Hgb 13.7 (11.7-16.6) g/dL Hct 42.4 (42.0-52.0) % MCV 98.4 H (80-94) fL MCH 31.8 (28.0-34.0) pg MCHC 32.3 (30.0-36.0) g/dL RDW 13.6 (12.1-15.1) % Plt Count 150 (130-400) 10^3/c mm MPV 11.5 H (7.4-10.4) fL Neut % (Auto) 86.5 % Lymph % (Auto) 2.6 % [place] % (Auto) 10.1 % Eos % (Auto) 0.1 % Baso % (Auto) 0.2 % Neut # (Auto) 16.50 H (1.8-7.7) 10^3/u L Lymph # (Auto) 0.5 L (0.8-4.8) 10^3/u L [place] # (Auto) 1.9 H (0.2-0.9) 10^3/u L Eos # (Auto) 0.0 (0.0-0.8) 10^3/u L Baso # (Auto) 0.0 (0.0-0.1) 10^3/u L Nucleated RBC % (a uto) 0 % Nucleated RBCs # 0.0 /100WBC Fibrinogen (174-498) mg/dL D-Dimer (0-0.59) ug/mIFE U Sodium 133 L (136-145) mmol/L Potassium 4.5 (3.5-5.1) mmol/L Chloride 99 (98-107) mmol/L Carbon Dioxide 23 (22-29) mmol/L Anion Gap 15.5 (5-19) BUN 20 (8-23) mg/dL Creatinine 1.0 (0.7-1.2) mg/dL GFR Calculation 74.1 L (90-130) mL/min Glucose 177 H (65-115) mg/dL Calculated Osmolal ity 277 L (285-295) mOsm/k g Calcium 9.4 (8.5-10.5) mg/dL Ferritin (30-400) ng/mL Total Bilirubin 0.4 (0.15-1.2) mg/dL AST 16 (0-40) U/L ALT 13 (0-41) U/L Alkaline Phosphata se 68 (40-130) IU/L Lactate Dehydrogen ase (135-225) U/L C-Reactive Protein (0.0-4.9) mg/L NT-Pro-B Natriuret Pep 1015 H (0-125) pg/mL Total Protein 7.2 (6.6-8.7) g/dL Albumin 4.1 (3.5-5.2) g/dL Globulin 3.1 (1.3-4.6) g/dL Lipase 119 H (13-60) U/L Procalcitonin (0-0.5) ng/mL SARS-CoV-2 Ag (Rap id) (Negative) 12/14/19 12/14/19 12/14/19 Range/Units 05:00 05:00 08:55 WBC (4.0-10.0) 10^3/ uL RBC (4.1-5.3) 10^6/u L Hgb (11.7-16.6) g/dL Hct (42.0-52.0) % MCV (80-94) fL MCH (28.0-34.0) pg MCHC (30.0-36.0) g/dL RDW (12.1-15.1) % Plt Count (130-400) 10^3/c mm MPV (7.4-10.4) fL Neut % (Auto) % Lymph % (Auto) % [place] % (Auto) % Eos % (Auto) % Baso % (Auto) % Neut # (Auto) (1.8-7.7) 10^3/u L Lymph # (Auto) (0.8-4.8) 10^3/u L [place] # (Auto) (0.2-0.9) 10^3/u L Eos # (Auto) (0.0-0.8) 10^3/u L Baso # (Auto) (0.0-0.1) 10^3/u L Nucleated RBC % (a uto) % Nucleated RBCs # /100WBC Fibrinogen 613 H (174-498) mg/dL D-Dimer >= 20.00 H (0-0.59) ug/mIFE U Sodium (136-145) mmol/L Potassium (3.5-5.1) mmol/L Chloride (98-107) mmol/L Carbon Dioxide (22-29) mmol/L Anion Gap (5-19) BUN (8-23) mg/dL Creatinine (0.7-1.2) mg/dL GFR Calculation (90-130) mL/min Glucose (65-115) mg/dL Calculated Osmolal ity (285-295) mOsm/k g Calcium (8.5-10.5) mg/dL Ferritin 163 (30-400) ng/mL Total Bilirubin (0.15-1.2) mg/dL AST (0-40) U/L ALT (0-41) U/L Alkaline Phosphata se (40-130) IU/L Lactate Dehydrogen ase 154 (135-225) U/L C-Reactive Protein 96.5 H (0.0-4.9) mg/L NT-Pro-B Natriuret Pep (0-125) pg/mL Total Protein (6.6-8.7) g/dL Albumin (3.5-5.2) g/dL Globulin (1.3-4.6) g/dL Lipase (13-60) U/L Procalcitonin 0.39 (0-0.5) ng/mL SARS-CoV-2 Ag (Rap id) Negative (Negative) Discharge Plan Discharge Patient Disposition: Admitted As Inpatient Admit Provider: Priscilla Marie Clinical Impression: Pneumonia, Chronic pancreatitis Condition: Stable Referrals: Jono Stone MD [Primary Care Provider] - Discharge Date/Time: 12/14/19 12:09 Sign Out Sign Out Data: Patient Sign Out occurred on 12/14/19 at 05:51. Patient's care was discussed, and care was transferred from to Lasha Serrano DO. Coding Level of Care Code ED Inspector Repairer [place] for Chg Fwd Exam Comprehensive
[2019-12-14] MEDS: ipratropium-albuterol 3 mL Neb INHALATION (05:04)
[2019-12-14] MEDS: morphine 4 mg/mL SDV 1 mL IVP ×5 (05:17→18:31)
[2019-12-14] MEDS: ondansetron 2 mg/ML SDV 2 mL 4 MG IVP (05:17)
--- NOTE | 2019-12-14 05:19 | CTR_ITS ---
PROCEDURE INFORMATION: Exam: CT Angiography Chest With Contrast Exam date and time: 12/14/2019 5:43 AM Age: 69 years old Clinical indication: Abdominal tenderness; Abdominal pain; Generalized; Shortness of breath; Left-sided chest pain; Patient HX: CO pain lt side chest, abd, lt shoulder; Additional info: SOB abd pain TECHNIQUE: Imaging protocol: Computed tomographic angiography of the chest with intravenous contrast. 3D rendering (Not supervised by radiologist): MIP and/or 3D reconstructed images were created by the technologist. Radiation optimization: All CT scans at this facility use at least one of these dose optimization techniques: automated exposure control; mA and/or kV adjustment per patient size (includes targeted exams where dose is matched to clinical indication); or iterative reconstruction. Contrast material: OMNI 350; Contrast volume: 95 ml; Contrast route: INTRAVENOUS (IV); COMPARISON: CT chest wo con [id number] 05/08/2019 2:41 PM RADIATION DOSE METRICS: Total DLP (mGy-cm): 1616.52 FINDINGS: Pulmonary arteries: No pulmonary emboli identified. Aorta: Mild atherosclerotic calcification of the thoracic aorta. No thoracic aortic aneurysm or dissection identified. Lungs: Moderate emphysematous changes of both lungs (especially the upper lobes). Mild patchy atelectasis and/or pneumonia in the right lower lobe posteriorly, increased from prior study. Mild atelectasis and/or pneumonia in the lingula, new. Moderate patchy atelectasis and/or pneumonia in the left lower lobe, new. Pleural space: No pneumothorax or pleural effusion. Heart: Heart size within normal limits. Lymph nodes: Calcified lymph nodes in the right paratracheal region, prevascular region, right tracheobronchial region, and left tracheobronchial region. These findings are consistent with longstanding granulomatous disease. Bones/joints: Marked degenerative changes of the thoracic spine. Soft tissues: Unremarkable. IMPRESSION: 1. Mild patchy atelectasis and/or pneumonia in the right lower lobe posteriorly, increased from prior study. 2. Mild atelectasis and/or pneumonia in the lingula, new. 3. Moderate patchy atelectasis and/or pneumonia in the left lower lobe, new. PROCEDURE INFORMATION: Exam: CT Abdomen And Pelvis With Contrast Exam date and time: 12/14/2019 5:43 AM Age: 69 years old Clinical indication: Abdominal tenderness; Abdominal pain; Generalized; Shortness of breath; Left-sided chest pain; Patient HX: CO pain lt side chest, abd, lt shoulder; Additional info: SOB abd pain TECHNIQUE: Imaging protocol: Computed tomography of the abdomen and pelvis with intravenous contrast. Radiation optimization: All CT scans at this facility use at least one of these dose optimization techniques: automated exposure control; mA and/or kV adjustment per patient size (includes targeted exams where dose is matched to clinical indication); or iterative reconstruction. Contrast material: OMNI 350; Contrast volume: 95 ml; Contrast route: INTRAVENOUS (IV); COMPARISON: CT chest wo con [id number] 05/08/2019 2:41 PM RADIATION DOSE METRICS: Total DLP (mGy-cm): 1616.52 FINDINGS: Liver: Unremarkable. Gallbladder and bile ducts: Unremarkable. Pancreas: Extensive pancreatic calcifications, consistent with chronic pancreatitis. There is a 2.7 cm x 2.4 cm cystic lesion adjacent to the body of the pancreas on series 3, image 27. There is a 5.2 cm x 4.3 cm cystic lesion adjacent to the tail of the pancreas on series 3, image 19. These are consistent with pseudocysts related to chronic pancreatitis. Spleen: Irregular, ill-defined, hypodense area in the spleen measuring 5.2 cm x 3.0 cm on series 3, image 17. Differential diagnosis includes manifestation of a prior episode of pancreatitis and laceration (grade 3). No active bleeding identified. Adrenals: Unremarkable. Kidneys and ureters: The right kidney is moderately atrophic. The left kidney is hypertrophic. Stomach and bowel: There is a long segment of mildly dilated small bowel coursing throughout the abdomen. Appearance suggests ileus. Diverticulosis of the descending and sigmoid colon without evidence of diverticulitis. Appendix: The appendix is not visualized as a separate structure. No findings to suggest appendicitis. Intraperitoneal space: No free intraperitoneal air identified. Mild free fluid in the perisplenic region. Vasculature: Suspected severe stenosis of the right renal artery origin. There is approximately 50% stenosis of the aorta just below the renal artery origins. Enlargement of the infrarenal abdominal aorta measuring 3.2 cm x 2.8 cm on series 3, image 46. This occurs at the origin point of an extra-anatomic aortobifemoral bypass. The [place] aorta below the bypass, the [place] common iliac arteries, the [place] internal iliac arteries, and the [place] external iliac arteries are occluded. Lymph nodes: Unremarkable. Bladder: Unremarkable as visualized. Reproductive: Unremarkable as visualized. Bones/joints: Severe degenerative changes of the lumbar spine. Soft tissues: Unremarkable. CT/CT angio chest w abd pel w con IMPRESSION: 1. Extensive pancreatic calcifications. Probable pseudocysts adjacent to the body and tail of the pancreas. These findings are consistent with chronic pancreatitis. 2. Abnormal irregular hypodense area in the spleen. This could be a manifestation of a prior episode of pancreatitis. Laceration (grade 3) is an alternate possibility. No active bleeding identified. 3. Mild small bowel ileus. 4. Suspected severe stenosis of the right renal artery origin with associated atrophy of the right kidney. 5. Additional, nonemergent findings as above. Radiation Dose CTDIVOL = (mGy): DLP = 1616.52~1616.52 (mGy-cm)
[2019-12-14 05:26] LABS: Basophils % 0.2 %; Eosinophils % 0.1 %; Hematocrit 42.4 % (42.0-52.0); Hemoglobin 13.7 g/dL (11.7-16.6); Lymphocytes # 0.5 10^3/uL (0.8-4.8); Lymphocytes % 2.6 %; Mean Corpuscular HGB Conc 32.3 g/dL (30.0-36.0); Mean Corpuscular Hemoglobin 31.8 pg (28.0-34.0); Mean Corpuscular Volume 98.4 fL (80-94); Mean Platelet Volume 11.5 fL (7.4-10.4); Monocytes # 1.9 10^3/uL (0.2-0.9); Monocytes % 10.1 %; Neutrophils % 86.5 %; Nucleated Red Blood Cells % 0 %; Platelet Count 150 10^3/cmm (130-400); Red Blood Count 4.31 10^6/uL (4.1-5.3); Red Cell Distribution Width 13.6 % (12.1-15.1)
[2019-12-14 05:42] LABS: Alanine Aminotransferase 13 U/L (0-41); Albumin Level 4.1 g/dL (3.5-5.2); Alkaline Phosphatase 68 IU/L (40-130); Anion Gap 15.5 (5-19); Aspartate Amino Transferase 16 U/L (0-40); Blood Urea Nitrogen 20 mg/dL (8-23); Calcium 9.4 mg/dL (8.5-10.5); Carbon Dioxide 23 mmol/L (22-29); Chloride 99 mmol/L (98-107); Globulin 3.1 g/dL (1.3-4.6); Glomerular Filtration Rate 74.1 mL/min (90-130); Glucose 177 mg/dL (65-115); Lipase 119 U/L (13-60); Osmolality Calculated 277 mOsm/kg (285-295); Potassium 4.5 mmol/L (3.5-5.1); Sodium 133 mmol/L (136-145); Total Bilirubin 0.4 mg/dL (0.15-1.2); Total Protein 7.2 g/dL (6.6-8.7)
[2019-12-14 05:49] LABS: NT Pro B Type Natriuretic Pept 1015 pg/mL (0-125)
[2019-12-14] MEDS: iohexol 350 mg/mL 100 mL Btl IV (06:05)
[2019-12-14] MEDS: cefTRIAXone 1,000 MG in sodium chloride 0.9% (plus) 50 ML 100 MG IV (09:05)
[2019-12-14 09:36] LABS: SARS Covid-2 Antigen Negative (Negative)
[2019-12-14 09:55] LABS: Fibrinogen 613 mg/dL (174-498)
[2019-12-14] MEDS: azithromycin 500 MG in sodium chloride 0.9% 250 ML 250 MG IV (09:59)
[2019-12-14 10:01] LABS: Procalcitonin 0.39 ng/mL (0-0.5)
[2019-12-14 10:12] LABS: C Reactive Protein 96.5 mg/L (0.0-4.9); D Dimer >= 20.00 ug/mIFEU (0-0.59); Ferritin 163 ng/mL (30-400); Lactate Dehydrogenase 154 U/L (135-225)
[2019-12-14 11:15] LABS: Lactic Sepsis W/Reflex 1.1 mmol/L (0.5-2.2)
[2019-12-14] MEDS: LORazepam 2 mg/mL INJ 1 mL 1 MG IVP (11:46)
--- NOTE | 2019-12-14 12:05 | P.HP_ITS ---
Providers/Chief Complaint Admitting Physician: Priscilla Marie DO Primary Care Provider: Jono Stone MD Chief Complaint: abd pain History of Present Illness Jack June is a 69 year old male with a past medical history of hypertension, hyperlipidemia, coronary artery disease and peripheral vascular disease that presented to the emergency department for increasing right upper quadrant abdominal pain. Patient reported that his pain started suddenly last night. He stated that he called his sister but due to continued pain he decided to come into the emergency department early this morning. He stated that the pain is mostly located in the left upper quadrant along the border of his ribs and radiates into his shoulder on the left. Patient stated that he has not had any diarrhea, no constipation, has not had any vomiting, reported some nausea. He denies any chest pain. Reports chronic smoker's cough with some sputum production. Denies being on any oxygen at home. Reports that he continues to smoke about a pack per day. Patient denies any recent medication changes, no recent hospitalizations. He reports that his last surgery was in October, carotid surgery by Dr. Kirby. Denies any recent fevers or chills, no loss of smell or taste, no exposure to anyone under investigation or positive for COVID-19. Patient was seen and evaluated in the emergency department was noted bibasilar pneumonia on CT scan of the chest abdomen and pelvis and admitted for further evaluation and treatment. He did have a CT scan of his abdomen and pelvis which showed concern for chronic pancreatitis with question of ruptured pancreatic pseudocyst with extension into the spleen, these findings were discussed with general surgeon, Dr. Mukherjee. However in this time patient was moved to the medical floor. Upon further discussion with general surgeon it was noted that patient required higher level of specialty care that was unavailable at our facility. Therefore patient was transferred to a higher level of care, accepted by Dr. Brenner at [facility] in [facility]. Verbalized this with patient and his sister, they have both verbalized understanding and agreed with plan. Review of Systems Const: Denies: fever(s) or chills Eyes: Denies: change in vision ENMT: Denies: nasal congestion Card: Denies: chest pain, palpitations or edema Resp: Reports: dyspnea and productive cough; Denies: hemoptysis GI: Reports: abdominal pain (LUQ) and constipation (last BM 2 days ago); Denies: nausea, vomiting, diarrhea, hematochezia or melena : Denies: dysuria or hematuria Musc: Reports: other (L shoulder pain); Denies: extremity pain or muscle cramps Skin/Breast: Denies: rash or new lesions Neuro: Reports: headache(s) (chronic, unchanged); Denies: dizziness Psych: Denies: depression Endo: Denies: polyuria or hot flashes Benjamin/Lymph: Denies: easy bruising or easy bleeding Medications/Allergies Home Medications Medication Instructions Recorded Confirmed Last Taken Type fluticasone 250 mcg-salmeterol 50 1 inh INHALATION BID 07/12/19 12/14/19 12/13/19 History mcg/dose blistr powdr for inhalation lisinopril 10 mg tablet 10 mg PO BID 07/12/19 12/14/19 12/13/19 History metoprolol tartrate 25 mg tablet 25 mg PO DAILY 07/12/19 12/14/19 12/13/19 History umeclidinium 62.5 mcg/actuation 1 inh INHALATION DAILY 07/12/19 12/14/19 12/13/19 History blister powder for inhalation albuterol sulfate 90 mcg/actuation 1 puff INHALATION QID PRN 09/20/19 12/14/19 10/28/19 History aerosol inhaler allopurinol 100 mg tablet 100 mg PO DAILY 09/20/19 12/14/19 12/13/19 History amlodipine 10 mg tablet 10 mg PO DAILY 09/20/19 12/14/19 12/13/19 History atorvastatin 40 mg tablet 40 mg PO DAILY 09/20/19 12/14/19 12/13/19 History clopidogrel 75 mg tablet 75 mg PO DAILY 09/20/19 12/14/19 12/13/19 History isosorbide mononitrate 30 mg 15 mg PO DAILY 09/20/19 12/14/19 12/13/19 History tablet,extended release 24 hr spironolactone 25 mg tablet 12.5 mg PO DAILY 09/20/19 12/14/19 12/13/19 History tamsulosin 0.4 mg capsule 0.4 mg PO DAILY 09/20/19 12/14/19 12/13/19 History trazodone 150 mg tablet 300 mg PO BEDTIME 09/20/19 12/14/19 12/13/19 History venlafaxine 150 mg PO DAILY 10/29/19 12/14/19 12/13/19 History aspirin 81 mg PO DAILY #100 tab 10/30/19 12/14/19 12/13/19 Rx bupropion HCl [Wellbutrin XL] 150 mg PO QAM 12/14/19 12/14/19 12/13/19 History ferrous sulfate 325 mg PO EVERY OTHER DAY 12/14/19 12/14/19 12/13/19 History fluticasone propion-salmeterol 1 inh INHALATION BID 12/14/19 12/14/19 12/13/19 History [Advair Diskus] hydrocodone-acetaminophen 1 tab PO TID PRN 12/14/19 12/14/19 12/13/19 History Allergies Allergy/AdvReac Type Severity Reaction Status Date / Time No Known Allergies Allergy Verified 10/31/19 10:53 PFSH Acute PFSH: Medical History BPH (benign prostatic hyperplasia) Carotid stent occlusion COPD (chronic obstructive pulmonary disease) Coronary artery disease Diabetes mellitus Erectile dysfunction Hypertension Mitral regurgitation Peripheral arterial disease Surgical History History of aorto-femoral bypass History of coronary angioplasty with insertion of stent last PCI to mid LAD by Dr. Cervantes 10/26/16 History of inguinal hernia repair RIGHT Hx of appendectomy Hx of foot surgery RIGHT S/P carotid endarterectomy Family History Father , AT AGE 63 CAD (coronary artery disease) Mother , AT AGE 93 No problems noted. Social History (Updated 12/14/19 @ 15:33 by Priscilla Marie DO) Smoking and tobacco status: current every day smoker cigarettes Packs smoked per day: 1 Alcohol intake: former Former alcohol use details: occasional alcohol use in the past, denies any heavy alcohol use in the pas Marital status: service: Yes branch: [employer] Current occupational status: disabled History of recent travel: No Vitals/I&O/Wt Last Vital Signs Temp 97.8 F 12/14/19 04:43 Pulse 93 12/14/19 11:14 Resp 18 12/14/19 11:14 BP 182/67 12/14/19 11:14 Pulse Ox 97 12/14/19 11:14 12/13/19 12/14/19 12/14/19 22:59 06:59 14:59 Intake Total 300 / 300 Balance 300 / 300 Weight last 48 hrs Weight 90.718 kg Physical Exam Const: COMMON NORMALS: patient oriented x3 and alert GENERAL APPEARANCE: cooperative ORIENTATION/CONSCIOUSNESS: Yes awake, Yes oriented to person, Yes oriented to place and Yes oriented to time HENMT: COMMON NORMALS: normocephalic and atraumatic HEAD & SCALP: normocephalic and atraumatic Eye: COMMON NORMALS: Equal, round and reactive pupils present PUPIL: Yes Equal, round and reactive pupils present Neck/C-Spine: COMMON NORMALS: supple GENERAL: Yes normal visual inspection Resp: EFFORT & INSPECTION: Yes able to speak in complete sentences OTHER: Oxygen by nasal cannula in place, prolonged expiratory phase with expiratory wheezing bilaterally Cardio: COMMON NORMALS: regular rhythm and No murmurs present (Cardio) RATE: tachycardic RHYTHM: regular rhythm GI: OTHER: Firm, tenderness to palpation in the epigastric and left upper quadrant, bowel sounds present in all 4 quadrants : COMMON NORMALS: Yes no CVA tenderness BLADDER/KIDNEY EXAM: Yes no CVA tenderness Back/Pelvis: COMMON NORMALS: no CVA tenderness Extremity: COMMON NORMALS: no clubbing, cyanosis or edema and no calf tenderness Neuro: COMMON NORMALS: patient oriented x3, CN's II-XII intact bilaterally, moves all extremities and no focal motor deficits SENSORIUM/ORIENTATION: Yes alert, Yes oriented to person, Yes oriented to place and Yes oriented to time SPEECH: speech normal Psych: COMMON NORMALS: mental status grossly normal and cooperative Skin: COMMON NORMALS: no rashes or lesions noted GENERAL SKIN EXAM: no rashes or lesions noted Data : 12/14/19 05:00 12/14/19 05:00 Micro: Microbiology 12/14/19 10:39 Blood Culture - Preliminary Blood SPECIMEN COLLECTED 12/14/19 10:44 Blood Culture - Preliminary Blood SPECIMEN COLLECTED Other CT: I personally reviewed and interpreted this imaging study as follows: Radiologist's impression: IMPRESSION: 1. Mild patchy atelectasis and/or pneumonia in the right lower lobe posteriorly, increased from prior study. 2. Mild atelectasis and/or pneumonia in the lingula, new. 3. Moderate patchy atelectasis and/or pneumonia in the left lower lobe, new. PROCEDURE INFORMATION: Exam: CT Abdomen And Pelvis With Contrast Exam date and time: 12/14/2019 5:43 AM Age: 69 years old Clinical indication: Abdominal tenderness; Abdominal pain; Generalized; Shortness of breath; Left-sided chest pain; Patient HX: CO pain lt side chest, abd, lt shoulder; Additional info: SOB abd pain TECHNIQUE: Imaging protocol: Computed tomography of the abdomen and pelvis with intravenous contrast. Radiation optimization: All CT scans at this facility use at least one of these dose optimization techniques: automated exposure control; mA and/or kV adjustment per patient size (includes targeted exams where dose is matched to clinical indication); or iterative reconstruction. Contrast material: OMNI 350; Contrast volume: 95 ml; Contrast route: INTRAVENOUS (IV); COMPARISON: CT chest [facility] [id number] 05/08/2019 2:41 PM RADIATION DOSE METRICS: Total DLP (mGy-cm): 1616.52 FINDINGS: Liver: Unremarkable. Gallbladder and bile ducts: Unremarkable. Pancreas: Extensive pancreatic calcifications, consistent with chronic pancreatitis. There is a 2.7 cm x 2.4 cm cystic lesion adjacent to the body of the pancreas on series 3, image 27. There is a 5.2 cm x 4.3 cm cystic lesion adjacent to the tail of the pancreas on series 3, image 19. These are consistent with pseudocysts related to chronic pancreatitis. Spleen: Irregular, ill-defined, hypodense area in the spleen measuring 5.2 cm x 3.0 cm on series 3, image 17. Differential diagnosis includes manifestation of a prior episode of pancreatitis and laceration (grade 3). No active bleeding identified. Adrenals: Unremarkable. Kidneys and ureters: The right kidney is moderately atrophic. The left kidney is hypertrophic. Stomach and bowel: There is a long segment of mildly dilated small bowel coursing throughout the abdomen. Appearance suggests ileus. Diverticulosis of the descending and sigmoid colon without evidence of diverticulitis. Appendix: The appendix is not visualized as a separate structure. No findings to suggest appendicitis. Intraperitoneal space: No free intraperitoneal air identified. Mild free fluid in the perisplenic region. Vasculature: Suspected severe stenosis of the right renal artery origin. There is approximately 50% stenosis of the aorta just below the renal artery origins. Enlargement of the infrarenal abdominal aorta measuring 3.2 cm x 2.8 cm on series 3, image 46. This occurs at the origin point of an extra-anatomic aortobifemoral bypass. The [place] aorta below the bypass, the [place] common iliac arteries, the [place] internal iliac arteries, and the [place] external iliac arteries are occluded. Lymph nodes: Unremarkable. Bladder: Unremarkable as visualized. Reproductive: Unremarkable as visualized. Bones/joints: Severe degenerative changes of the lumbar spine. Soft tissues: Unremarkable. CT/CT angio chest w abd pel w con IMPRESSION: 1. Extensive pancreatic calcifications. Probable pseudocysts adjacent to the body and tail of the pancreas. These findings are consistent with chronic pancreatitis. 2. Abnormal irregular hypodense area in the spleen. This could be a manifestation of a prior episode of pancreatitis. Laceration (grade 3) is an alternate possibility. No active bleeding identified. 3. Mild small bowel ileus. 4. Suspected severe stenosis of the right renal artery origin with associated atrophy of the right kidney. 5. Additional, nonemergent findings as above. A&P Assessment and plan (1) Pneumonia: Basilar pneumonia On Rocephin and azithromycin in the ED, continued Respiratory therapy to assess and treat, oxygen per protocol Expiratory wheezing, continue home inhalers, likely an element of underlying COPD exacerbation Rapid antigen test for COVID-19 performed in the ED and negative, however PCR COVID-19 testing sent and pending Status: Acute (2) Chronic pancreatitis: Chronic pancreatitis with severe calcifications throughout the pancreas, transfer to [facility] for further evaluation from hepatobiliary surgery and interventional radiology Patient has irregular hypodense area in the spleen that could be manifestation of prior pancreatitis versus grade 3 laceration, no evidence of any active bleeding at this time Remains NPO Transfer to higher level of care, [facility] with accepting physician is Dr. Brenner Strongly appreciate acceptance and assistance in patient's care Status: Acute Additional A&P Information Cough: Slight increase in sputum production, concern for underlying pneumonia, patient had a rapid antigen testing for COVID-19 in the emergency department which was negative. He did have a send out PCR test that was ordered and remains pending. Therefore patient remains on droplet and isolation precautions. COPD: Concern for mild exacerbation with concomitant pneumonia, continue with antibiotics, respiratory therapy to assess and treat, oxygen per protocol. Consider systemic corticosteroids Hypertension: Patient has not had any of his home medications yet today we will go ahead and give his home lisinopril, metoprolol, Aldactone and amlodipine. PRN hydralazine as needed for elevated blood pressure Coronary artery disease with a history of stenting: Most recent cardiac cath in 2017 with stent to mid LAD, patient is on aspirin, Plavix, statin at home, also remains on metoprolol Tobacco abuse Diabetes mellitus type 2, c diet controlled, patient is not on any medications currently Case was discussed with on-call surgeon, due to concern for rupture of pancreatic pseudocyst versus neoplastic process into the spleen recommendation was to transfer to higher level of care. Discussed with accepting provider, hepatobiliary surgeon Dr. Chanel at [facility] and patient was graciously accepted in transfer. Called and discussed with patient's sister, Janet, her number . Made her aware of transfer and clinical condition as well as current treatment plan, she verbalized understanding and agreed with plan. Attestations Medical Necessity Statement*: Patient requires hospitalization, transferring to a higher level of care due to concern as noted above. Coding Level of Care Code Acute Continuity Editor for Lissette Lindquist Diagnoses Pneumonia J18.9 Chronic pancreatitis K86.1
--- NOTE | 2019-12-14 12:06 | ECG_ITS ---
[facility] Test Date: 2019-12-14 Pat Name: Jack June Department: Room: 261 Gender: Male Artist Representative: : 1950 Requested By: Priscilla Marie Order Number: [id number] Elder MD: Mathieu Tejeda M.D. Measurements Intervals [place] Rate: 106 P: 42 HI: 144 QRS: -40 QRSD: 104 T: 63 QT: 326 QTc: 433 Interpretive Statements SINUS TACHYCARDIA POSSIBLE LEFT ATRIAL ENLARGEMENT [-0.1mV P WAVE IN V1/V2] MARKED LEFT AXIS DEVIATION [QRS AXIS < -30] INCOMPLETE RIGHT BUNDLE BRANCH BLOCK [90+ ms QRS DURATION, TERMINAL R IN V1/V2, 40+ ms S IN I/aVL/V4/V5/V6] Compared to ECG 12/14/2019 05:54:29 Sinus rhythm no longer present Electronically Signed On 12-14-2019 14:49:34 CDT by Mathieu Tejeda M.D. [id number]
--- NOTE | 2019-12-14 12:38 | USR_ITS ---
PROCEDURE INFORMATION: Exam: US Duplex Artery and Vein of the Abdominal and/or Reproductive Organs, Complete Kidneys Exam date and time: 12/14/2019 12:39 PM Age: 69 years old Clinical indication: Patient HX: Covid and HTN; Additional info: Renal stenosis TECHNIQUE: Imaging protocol: Real-time duplex ultrasound scan of the arterial and venous flow with color Doppler flow and spectral waveform analysis with image documentation. Complete duplex exam focused on the kidneys. Duplex images required to evaluate vascular conditions. COMPARISON: No relevant prior studies available. FINDINGS: Right kidney: Normal. No hydronephrosis. No masses. Right renal artery: Normal duplex of the renal artery. Duplex waveforms are within normal limits. No hemodynamically significant stenosis. Right interlobar/arcuate arteries: 0.62-0.71 Right renal vein: Patent Left kidney: Normal. No hydronephrosis. No masses. Left renal artery: Normal duplex of the renal artery. Duplex waveforms are within normal limits. No hemodynamically significant stenosis. Left interlobar/arcuate arteries: 0.80-0.77 Left renal vein: Patent US/CV renal doppler [id number] IMPRESSION: Normal kidneys. No hemodynamically significant stenosis.
[2019-12-14 13:32] LABS: INR 1.06 (0.8-1.2)
[2019-12-14 13:41] LABS: Troponin(5th) Baseline 14 ng/L (0-15)
[2019-12-14 13:49] LABS: Thyroid Stimulating Hormone 0.81 uIU/mL (0.27-4.20)
--- NOTE | 2019-12-14 14:06 | ECG_ITS ---
[facility] Test Date: 2019-12-14 Pat Name: Jack June Department: Room: 261 Gender: Male [employer] Attendant: : 1950 Requested By: Priscilla Marie Order Number: [id number] Elder MD: Mathieu Tejeda M.D. Measurements Intervals [place] Rate: 109 P: 19 FL: 156 QRS: -34 QRSD: 113 T: 57 QT: 327 QTc: 441 Interpretive Statements SINUS TACHYCARDIA MARKED LEFT AXIS DEVIATION [QRS AXIS < -30] MODERATE INTRAVENTRICULAR CONDUCTION DELAY [110+ ms QRS DURATION] Compared to ECG 12/14/2019 12:26:08 Intraventricular conduction delay now present Incomplete right bundle-branch block no longer present Electronically Signed On 12-14-2019 14:59:34 CDT by Mathieu Tejeda M.D. [id number]
[2019-12-14] MEDS: sodium chloride 0.9% 1,000 ML 30 ML IV (14:41)
[2019-12-14] MEDS: amlodipine 10 mg Tablet PO (14:42)
[2019-12-14] MEDS: lisinopril 10 mg Tablet PO (14:42)
[2019-12-14] MEDS: metoprolol tartrate 25 mg Tablet PO (14:42)
--- NOTE | 2019-12-14 15:37 | PM.TDS ---
Transfer Summary Providers Date of Admission: 12/14/19 10:32 Date of Discharge: 12/14/19 Attending Provider at Admission: Priscilla Marie DO Attending Provider at Transfer: Priscilla Marie DO Primary Care Provider: Jono Stone MD Anticipated Date of Transfer: Anticipated date of transfer: 12/14/19 Receiving Facility & Provider: Receiving Provider: Dr. Brenner Receiving facility: [facility] Diagnoses at Discharge Discharge Diagnosis (1) Pneumonia: Status: Acute (2) Chronic pancreatitis: Status: Acute Reason for Visit Reason for Visit: abd pain Hospital Course Hospital Course: Jack June is a 69 year old male with a past medical history of hypertension, hyperlipidemia, coronary artery disease and peripheral vascular disease that presented to the emergency department for increasing right upper quadrant abdominal pain. Patient reported that his pain started suddenly last night. He stated that he called his sister but due to continued pain he decided to come into the emergency department early this morning. He stated that the pain is mostly located in the left upper quadrant along the border of his ribs and radiates into his shoulder on the left. Patient stated that he has not had any diarrhea, no constipation, has not had any vomiting, reported some nausea. He denies any chest pain. Reports chronic smoker's cough with some sputum production. Denies being on any oxygen at home. Reports that he continues to smoke about a pack per day. Patient denies any recent medication changes, no recent hospitalizations. He reports that his last surgery was in October, carotid surgery by Dr. Kirby. Denies any recent fevers or chills, no loss of smell or taste, no exposure to anyone under investigation or positive for COVID-19. Patient was seen and evaluated in the emergency department was noted bibasilar pneumonia on CT scan of the chest abdomen and pelvis and admitted for further evaluation and treatment. He did have a CT scan of his abdomen and pelvis which showed concern for chronic pancreatitis with question of ruptured pancreatic pseudocyst with extension into the spleen, these findings were discussed with general surgeon, Dr. Mukherjee. However in this time patient was moved to the medical floor. Upon further discussion with general surgeon it was noted that patient required higher level of specialty care that was unavailable at our facility. Therefore patient was transferred to a higher level of care, accepted by Dr. Brenner at [facility] in [facility]. Verbalized this with patient and his sister, they have both verbalized understanding and agreed with plan. (1) Pneumonia: Basilar pneumonia On Rocephin and azithromycin in the ED, continued Respiratory therapy to assess and treat, oxygen per protocol Expiratory wheezing, continue home inhalers, likely an element of underlying COPD exacerbation Rapid antigen test for COVID-19 performed in the ED and negative, however PCR COVID-19 testing sent and pending Status: Acute (2) Chronic pancreatitis: Chronic pancreatitis with severe calcifications throughout the pancreas, transfer to [facility] for further evaluation from hepatobiliary surgery and interventional radiology Patient has irregular hypodense area in the spleen that could be manifestation of prior pancreatitis versus grade 3 laceration, no evidence of any active bleeding at this time Remains NPO Transfer to higher level of care, [facility] with accepting physician is Dr. Brenner Strongly appreciate acceptance and assistance in patient's care Status: Acute Additional A&P Information Cough: Slight increase in sputum production, concern for underlying pneumonia, patient had a rapid antigen testing for COVID-19 in the emergency department which was negative. He did have a send out PCR test that was ordered and remains pending. Therefore patient remains on droplet and isolation precautions. COPD: Concern for mild exacerbation with concomitant pneumonia, continue with antibiotics, respiratory therapy to assess and treat, oxygen per protocol. Consider systemic corticosteroids Hypertension: Patient has not had any of his home medications yet today we will go ahead and give his home lisinopril, metoprolol, Aldactone and amlodipine. PRN hydralazine as needed for elevated blood pressure Coronary artery disease with a history of stenting: Most recent cardiac cath in 2017 with stent to mid LAD, patient is on aspirin, Plavix, statin at home, also remains on metoprolol Tobacco abuse Diabetes mellitus type 2, c diet controlled, patient is not on any medications currently Case was discussed with on-call surgeon, due to concern for rupture of pancreatic pseudocyst versus neoplastic process into the spleen recommendation was to transfer to higher level of care. Discussed with accepting provider, hepatobiliary surgeon Dr. Chanel at [facility] and patient was graciously accepted in transfer. Called and discussed with patient's sister, Janet, her number . Made her aware of transfer and clinical condition as well as current treatment plan, she verbalized understanding and agreed with plan. Physical Exam Narrative: EXAM NARRATIVE: Please see physical exam as documented in today's history and physical TS Data Data Completed and Pending: Completed Studies During Hospitalization Category Date Time Status CT angio chest w abd pel w con Urge nt Cat Scan 12/14/19 05:19 Completed XR chest 1V donald ble [id number] Urgent Exams 12/14/19 04:41 Completed Pending at discharge Category Date Time Status Blood Culture Sta t Lab 12/14/19 10:39 Results Complete Blood Co unt w/Auto AM LABS Lab 12/15/19 04:00 Ordered Comprehensive Met abolic Panel AM LA BS Lab 12/15/19 04:00 Ordered Coronavirus Lab T est PTC Routine Lab 12/14/19 11:05 Received Sputum Culture an d Gram Stain Stat Lab 12/14/19 08:09 Uncollected Troponin(5th) 2 H our. Timed Lab 12/14/19 15:06 Ordered Troponin(5th) 6 h our. Timed Lab 12/14/19 19:06 Ordered Urinalysis Stat Lab 12/14/19 12:08 Uncollected CV renal doppler [id number] Routine Ultrasound 12/14/19 12:38 Ordered Labs from last 24 hours 12/14/19 12/14/19 12/14/19 15:14 12:56 12:56 WBC RBC Hgb Hct MCV MCH MCHC RDW Plt Count MPV Neut % (Auto) Lymph % (Auto) Davison % (Auto) Eos % (Auto) Baso % (Auto) Neut # (Auto) Lymph # (Auto) Davison # (Auto) Eos # (Auto) Baso # (Auto) Nucleated RBC % (a uto) Nucleated RBCs # PT 14.10 INR 1.06 Fibrinogen D-Dimer Sodium Potassium Chloride Carbon Dioxide Anion Gap BUN Creatinine GFR Calculation Glucose Calculated Osmolal ity Lactic Acid Calcium Ferritin Total Bilirubin AST ALT Alkaline Phosphata se Lactate Dehydrogen ase Troponin T Baselin e Troponin T 120 Min [place] Pending Delta Troponin T Pending C-Reactive Protein NT-Pro-B Natriuret Pep Total Protein Albumin Globulin Lipase Procalcitonin TSH 0.81 Nasal/Oral COVID-1 9 PCR SARS-CoV-2 Ag (Rap id) 12/14/19 12/14/19 12/14/19 12:56 11:05 10:39 WBC RBC Hgb Hct MCV MCH MCHC RDW Plt Count MPV Neut % (Auto) Lymph % (Auto) Davison % (Auto) Eos % (Auto) Baso % (Auto) Neut # (Auto) Lymph # (Auto) Davison # (Auto) Eos # (Auto) Baso # (Auto) Nucleated RBC % (a uto) Nucleated RBCs # PT INR Fibrinogen D-Dimer Sodium Potassium Chloride Carbon Dioxide Anion Gap BUN Creatinine GFR Calculation Glucose Calculated Osmolal ity Lactic Acid 1.1 Calcium Ferritin Total Bilirubin AST ALT Alkaline Phosphata se Lactate Dehydrogen ase Troponin T Baselin e 14 Troponin T 120 Min [place] Delta Troponin T C-Reactive Protein NT-Pro-B Natriuret Pep Total Protein Albumin Globulin Lipase Procalcitonin TSH Nasal/Oral COVID-1 9 PCR Pending SARS-CoV-2 Ag (Rap id) 12/14/19 12/14/19 12/14/19 08:55 05:00 05:00 WBC RBC Hgb Hct MCV MCH MCHC RDW Plt Count MPV Neut % (Auto) Lymph % (Auto) Davison % (Auto) Eos % (Auto) Baso % (Auto) Neut # (Auto) Lymph # (Auto) Davison # (Auto) Eos # (Auto) Baso # (Auto) Nucleated RBC % (a uto) Nucleated RBCs # PT INR Fibrinogen 613 H D-Dimer >= 20.00 H Sodium Potassium Chloride Carbon Dioxide Anion Gap BUN Creatinine GFR Calculation Glucose Calculated Osmolal ity Lactic Acid Calcium Ferritin 163 Total Bilirubin AST ALT Alkaline Phosphata se Lactate Dehydrogen ase 154 Troponin T Baselin e Troponin T 120 Min [place] Delta Troponin T C-Reactive Protein 96.5 H NT-Pro-B Natriuret Pep Total Protein Albumin Globulin Lipase Procalcitonin 0.39 TSH Nasal/Oral COVID-1 9 PCR SARS-CoV-2 Ag (Rap id) Negative 12/14/19 12/14/19 12/14/19 05:00 05:00 05:00 WBC 19.0 H RBC 4.31 Hgb 13.7 Hct 42.4 MCV 98.4 H MCH 31.8 MCHC 32.3 RDW 13.6 Plt Count 150 MPV 11.5 H Neut % (Auto) 86.5 Lymph % (Auto) 2.6 Davison % (Auto) 10.1 Eos % (Auto) 0.1 Baso % (Auto) 0.2 Neut # (Auto) 16.50 H Lymph # (Auto) 0.5 L Davison # (Auto) 1.9 H Eos # (Auto) 0.0 Baso # (Auto) 0.0 Nucleated RBC % (a uto) 0 Nucleated RBCs # 0.0 PT INR Fibrinogen D-Dimer Sodium 133 L Potassium 4.5 Chloride 99 Carbon Dioxide 23 Anion Gap 15.5 BUN 20 Creatinine 1.0 GFR Calculation 74.1 L Glucose 177 H Calculated Osmolal ity 277 L Lactic Acid Calcium 9.4 Ferritin Total Bilirubin 0.4 AST 16 ALT 13 Alkaline Phosphata se 68 Lactate Dehydrogen ase Troponin T Baselin e Troponin T 120 Min [place] Delta Troponin T C-Reactive Protein NT-Pro-B Natriuret Pep 1015 H Total Protein 7.2 Albumin 4.1 Globulin 3.1 Lipase 119 H Procalcitonin TSH Nasal/Oral COVID-1 9 PCR SARS-CoV-2 Ag (Rap id) Vitals: Last Vital Signs Temp 98.2 F 12/14/19 12:38 Pulse 110 H 12/14/19 14:43 Resp 16 12/14/19 14:43 BP 150/77 12/14/19 12:38 Pulse Ox 94 12/14/19 14:43 TS Medications Medications Home Medications fluticasone 250 mcg-salmeterol 50 mcg/dose blistr powdr for inhalation 1 inh INHALATION BID 07/12/19 [History Confirmed 12/14/19] lisinopril 10 mg tablet 10 mg PO BID 07/12/19 [History Confirmed 12/14/19] metoprolol tartrate 25 mg tablet 25 mg PO DAILY 07/12/19 [History Confirmed 12/14/19] umeclidinium 62.5 mcg/actuation blister powder for inhalation 1 inh INHALATION DAILY 07/12/19 [History Confirmed 12/14/19] albuterol sulfate 90 mcg/actuation aerosol inhaler 1 puff INHALATION QID PRN 09/20/19 [History Confirmed 12/14/19] allopurinol 100 mg tablet 100 mg PO DAILY 09/20/19 [History Confirmed 12/14/19] amlodipine 10 mg tablet 10 mg PO DAILY 09/20/19 [History Confirmed 12/14/19] atorvastatin 40 mg tablet 40 mg PO DAILY 09/20/19 [History Confirmed 12/14/19] clopidogrel 75 mg tablet 75 mg PO DAILY 09/20/19 [History Confirmed 12/14/19] isosorbide mononitrate 30 mg tablet,extended release 24 hr 15 mg PO DAILY 09/20/19 [History Confirmed 12/14/19] spironolactone 25 mg tablet 12.5 mg PO DAILY 09/20/19 [History Confirmed 12/14/19] tamsulosin 0.4 mg capsule 0.4 mg PO DAILY 09/20/19 [History Confirmed 12/14/19] trazodone 150 mg tablet 300 mg PO BEDTIME 09/20/19 [History Confirmed 12/14/19] venlafaxine 150 mg PO DAILY 10/29/19 [History Confirmed 12/14/19] aspirin 81 mg PO DAILY #100 tab 10/30/19 [Rx Confirmed 12/14/19] bupropion HCl [Wellbutrin XL] 150 mg PO QAM 12/14/19 [History Confirmed 12/14/19] ferrous sulfate 325 mg PO EVERY OTHER DAY 12/14/19 [History Confirmed 12/14/19] fluticasone propion-salmeterol [Advair Diskus] 1 inh INHALATION BID 12/14/19 [History Confirmed 12/14/19] hydrocodone-acetaminophen 1 tab PO TID PRN 12/14/19 [History Confirmed 12/14/19] Active Medications Acetaminophen (Tylenol) 650 mg PO Q6H PRN PRN Reason: Mild/Mod Pain Or Temp >/= 101 Albuterol Sulfate (Ventolin) 1 puff INHALATION QID PRN PRN Reason: Wheezing Amlodipine Besylate (Norvasc) 10 mg PO DAILY [facility] Last Admin: 12/14/19 14:42 Dose: 10 mg Documented by: Aspirin (Aspirin Chewable) 81 mg PO DAILY [facility] Last Admin: 12/14/19 14:30 Dose: Not Given Documented by: Atorvastatin Calcium (Lipitor) 40 mg PO DAILY [facility] [place] Last Admin: 12/14/19 14:33 Dose: Not Given Documented by: Bupropion HCl (Wellbutrin Xl (24 Hr)) 150 mg PO QAM [facility] [place] Last Admin: 12/14/19 14:32 Dose: Not Given Documented by: Clopidogrel Bisulfate (Plavix) 75 mg PO DAILY [facility] [place] Last Admin: 12/14/19 14:33 Dose: Not Given Documented by: Docusate Sodium (Colace) 100 mg PO BID [facility] Ferrous Sulfate (Ferrous Sulfate) 325 mg PO EVERY OTHER DAY [facility] Last Admin: 12/14/19 14:33 Dose: Not Given Documented by: Hydralazine HCl (Apresoline) 10 mg IVP Q4H PRN PRN Reason: HYPERTENSION Ceftriaxone Sodium 1,000 mg/ (Sodium Chloride) 50 mls @ 100 mls/hr IV Q24H [facility]; Protocol Azithromycin 500 mg/ Sodium (Chloride) 250 mls @ 250 mls/hr IV Q24H [facility]; Protocol Sodium Chloride (Sodium Chloride 0.9%) 1,000 mls @ 30 mls/hr IV .Q24H [facility] [place] Last Admin: 12/14/19 14:41 Dose: 30 mls/hr Documented by: Isosorbide Mononitrate (Imdur) 15 mg PO DAILY [facility] Last Admin: 12/14/19 14:56 Dose: Not Given Documented by: Lisinopril (Prinivil) 10 mg PO BID [facility] Last Admin: 12/14/19 14:42 Dose: 10 mg Documented by: Metoprolol Tartrate (Lopressor) 25 mg PO DAILY [facility] [place] Last Admin: 12/14/19 14:42 Dose: 25 mg Documented by: Morphine Sulfate (Morphine) 4 mg IVP Q4H PRN PRN Reason: SEVERE PAIN Last Admin: 12/14/19 14:43 Dose: 4 mg Documented by: Morphine Sulfate (Morphine) 4 mg IVP Q4H PRN PRN Reason: SEVERE PAIN Naloxone HCl (Narcan) 0.1 mg IVP Q2M PRN PRN Reason: OPIATERV Non-Formulary Medication (Umeclidinium [Incruse Ellipta]) 1 inh INHALATION DAILY [facility] Ondansetron HCl (Zofran) 4 mg PO Q8H PRN PRN Reason: NAUSEA AND VOMITING Fluticasone/Salmeterol (Advair Diskus 250-50) 1 puff INHALATION BID [facility] Spironolactone (Aldactone) 12.5 mg PO DAILY [facility] Last Admin: 12/14/19 14:56 Dose: Not Given Documented by: Tamsulosin HCl (Flomax) 0.4 mg PO DAILY [facility] Last Admin: 12/14/19 14:56 Dose: Not Given Documented by: Trazodone HCl (Desyrel) 300 mg PO BEDTIME [facility] Venlafaxine HCl (Effexor Xr) 150 mg PO DAILY [facility] [place] Last Admin: 12/14/19 14:34 Dose: Not Given Documented by: Discharge Plan Discharge Patient Disposition: Home Condition: Stable Prescriptions: No Action allopurinol 100 mg tablet 100 mg PO DAILY RF: 0 amlodipine 10 mg tablet 10 mg PO DAILY RF: 0 atorvastatin 40 mg tablet 40 mg PO DAILY RF: 0 isosorbide mononitrate 30 mg tablet extended release 24 hr 15 mg PO DAILY RF: 0 clopidogrel 75 mg tablet 75 mg PO DAILY RF: 0 spironolactone 25 mg tablet 12.5 mg PO DAILY RF: 0 tamsulosin 0.4 mg capsule 0.4 mg PO DAILY RF: 0 trazodone 150 mg tablet 300 mg PO BEDTIME RF: 0 albuterol sulfate [Ventolin HFA] 90 mcg/actuation HFA aerosol inhaler 1 puff INHALATION QID PRN (Reason: Wheezing) RF: 0 lisinopril 10 mg tablet 10 mg PO BID RF: 0 fluticasone propion-salmeterol [Advair Diskus] 250-50 mcg/dose blister with device 1 inh INHALATION BID RF: 0 Incruse Ellipta 62.5 mcg/actuation blister with device 1 inh INHALATION DAILY RF: 0 metoprolol tartrate 25 mg tablet 25 mg PO DAILY RF: 0 venlafaxine 150 mg capsule,extended release 24hr 150 mg PO DAILY RF: 0 aspirin 81 mg tablet,chewable 81 mg PO DAILY Qty: 100 RF: 0 Advair Diskus 250-50 mcg/dose Blister With Device 1 inh INHALATION BID RF: 0 hydrocodone-acetaminophen 10-325 mg Tablet 1 tab PO TID PRN (Reason: Pain) RF: 0 ferrous sulfate 325 mg (65 mg iron) Tablet 325 mg PO EVERY OTHER DAY RF: 0 Wellbutrin XL 150 mg Tablet Extended Release 24 Hr 150 mg PO QAM RF: 0 Discharge Orders: Transfer Out of Facility (Order); Ordered 12/14/19 Ordered By: Priscilla Marie Referrals: Jono Stone MD [Primary Care Provider] - Transfer Attestations Time Spent in Transfer Care*: greater than 30 min Status at Transfer: Cognitive status at transfer: cognitively intact, Quality Metrics Clinical Quality Measures: During this hospital stay, did patient experience: None Coding Level of Care Code Acute Hospital Internship for g Fwd Diagnoses Pneumonia J18.9 Chronic pancreatitis K86.1
[2019-12-14 15:56] LABS: Troponin 5 2HR 15.46 ng/L (0-15); Troponin 5 2HR Delta 1.46 ABS# (0-10)
[2019-12-14] MEDS: hyDRALAzine 20 mg/mL INJ 1 mL 10 MG IVP (17:18)
[2019-12-14] MEDS: docusate sodium 100 mg Capsule PO (17:22)
--- NOTE | 2019-12-14 18:53 | PC.NURSE ---
Report called to Rita Hamilton at [facility] [phone].
--- NOTE | 2019-12-14 19:11 | PC.NURSE ---
Report to Payton LEONG
[2019-12-14 19:41] LABS: Troponin 5 6HR 14.81 ng/L (0-15); Troponin 5 6HR Delta 0.81 ng/L (0-12)
--- NOTE | 2019-12-14 20:01 | PC.NURSE ---
Transport is called and set up.
--- NOTE | 2019-12-14 21:06 | PC.NURSE ---
Pt laying in bed during assessment. Denies pain at this time. Helped Pt gather belongings and explained that RN called transport and we were just waiting on them to arrive to pick him up. No other needs voiced at this time.
--- NOTE | 2019-12-14 21:07 | PC.NURSE ---
Pt left via EMS transport with all belongings on 2L Non-rebreather mask. Denies pain at this time. No other needs voiced.
[2019-12-16 10:36] LABS: Coronavirus Lab Test PTC Negative
--- NOTE | 2019-12-17 15:20 | PC.RESP ---
Smoking Cessation and Pulmonary Rehab information sent to patient.
== END 2019-12-14 21:05 | disposition home or self-care (01) | DRG 194 ==
LOC: ER 08:26 → MEDSURG 10:48
PROVIDERS: Emergency Medicine; Admitting Provider Family Medicine; Emergency Provider Family Medicine; PCP Family Medicine; Visit Provider Family Medicine
DX: J18.9 Pneumonia, unspecified organism (principal); K86.1 Other chronic pancreatitis; J44.0 Chronic obstructive pulmonary disease with (acute) lower respiratory infection; K86.3 Pseudocyst of pancreas; I10 Essential (primary) hypertension; I25.10 Atherosclerotic heart disease of native coronary artery without angina pectoris; E78.5 Hyperlipidemia, unspecified; E11.51 Type 2 diabetes mellitus with diabetic peripheral angiopathy without gangrene; Z79.82 Long term (current) use of aspirin; Z79.02 Long term (current) use of antithrombotics/antiplatelets; N40.0 Benign prostatic hyperplasia without lower urinary tract symptoms; I34.0 Nonrheumatic mitral (valve) insufficiency; Z95.5 Presence of coronary angioplasty implant and graft; F17.210 Nicotine dependence, cigarettes, uncomplicated
CPT/HCPCS: 12345; 36415; 71045; 71275; 74177; 80053; 82728; 83605; 83615; 83690; 83880; 84145; 84443; 84484; 85025; 85378; 85384; 85610; 86140; 87040; 87426; 87635; 93005; 93975; 94640; 96375; 99284; J0360; J0456; J0696; J2060; J2270; J2405; J2930; J7030; J7050; J7611; Q9967

== ENCOUNTER 2020-01-07 13:15 | Outpatient (CLI) | payer MEDICARE, MEDICAID, SELFPAY ==
--- NOTE | 2020-01-07 13:20 | USCV_ITS ---
Jack June Age: 69 Gender: M : 1950 Exam Date: 01/07/2020 13:35 Ordering Phys: Truong Kirby MD (Andy) ([email or web address] [place] Technologist: Yasmeen Luz Exam Location: [facility] [place] Indication: STENOSIS Risk Factors: Previous Vascular Surgery: L CEA Right Brachial BP: / Left Brachial BP: / Right Left Velocity (cm/s) Spectral Plaque Velocity (cm/s) Spectral Plaque Syst/Diast Broadening Syst/Diast Broadening 83.80/ 13.20 Prox CCA 36.00 / 12.20 115.80/13.20 Mid CCA 36.00 / 8.70 94.80/ 13.20 Distal CCA 36.00 / 15.10 32.10/ 11.50 Prox ICA 46.20 / 17.70 82.40/ 18.90 Mid ICA 83.50 / 18.70 81.60/ 15.70 Distal ICA 83.50 / 29.50 131.20 ECA 70.70 0.71 ICA/CCA 2.32 Antegrade Vertebral Antegrade 20.00/ 5.20 cm/s 51.10/ 15.70 cm/s Tri Subclavian Tri 122.3 103.1 0 0 FINDINGS Mild to moderate heterogeneous plaques of the left bifurcation and proximal internal carotid artery. Minimal plaques in the right bifurcation internal carotid artery. Antegrade flow in the vertebral arteries bilaterally. Near normal Doppler flow velocities in the external carotid arteries bilaterally CONCLUSIONS Mild to moderate heterogeneous plaques of the left bifurcation and proximal internal carotid artery with velocity elevation consistent with 16-49% stenosis. Minimal plaques in the right bifurcation internal carotid artery. Compared to the study from 03/15/2019, there is significant improvement on the right side Dr Rony Echevarria MD [facility] (Electronically Signed) Final Date: 08 January 2020 08:42 S
== END 2020-01-07 13:16 | disposition home or self-care (01) ==
LOC: RAD 13:17
PROVIDERS: PCP Family Medicine; Visit Provider Thoracic Surgery (Cardiothoracic Vascular Surgery)
DX: I65.22 Occlusion and stenosis of left carotid artery (principal)
CPT/HCPCS: 93880

== ENCOUNTER 2020-01-17 12:00 | Outpatient (CLI) | payer MEDICARE, MEDICAID, SELFPAY ==
--- NOTE | 2020-01-17 12:07 | CT_ITS ---
WS: [id number] CT ABDOMEN CONTRAST TECHNIQUE: Contrast enhanced CT of the abdomen with coronal and sagittal reformatted images. CLINICAL INFORMATION: GENERALIZED ABD PAIN COMPARISON: CT 10/23/2019 and 06/03/2018 DLP: 772.[address] scans at [facility] use at least one of these dose optimization techniques: automat ed exposure control; mA and/or kV adjustment per patient size (includes targeted exams where dose is matched to clinical indication); or iterative reconstruction. FINDINGS: Again seen are changes of chronic calcific pancreatitis. Pancreatic ductal dilatation is unchanged. I nterval decrease in size of the peripheral enhancing low-attenuation lesion involving the pancreatic tail consistent with pseudocyst. Today this measures approximately 2.3 x 1.8 cm decreased from Septem 2019. Stable smaller pseudocyst along the body of the pancreas measuring 1.6 x 1.7 CM. Again seen are patchy low-attenuation changes involving the spleen progressed since December 13 0 likely due to prior splenic injury with laceration and infarcts. Small amount of pericapsular splen ic fluid. Small amount of mesenteric induration in the upper abdomen. Lung bases are well aerated. Tiny noncalcified nodule right lower lobe measuring 2 mm. Normal portal vein and splenic vein. Normal gallbladder. Adrenal glands are normal. No hydronephrosis. Right renal cortical atrophy. Dense abdominal aortic calcification. Small lobulated infrarenal abdominal aortic a neurysm measuring 3.1 x 2.3 CM. Degenerative disc disease with disc space narrowing worse at T9-T10 and and L1-2. L5 is sacralized on the right. CT/CT abdomen w con* [id number] IMPRESSION: 1. Again seen are changes of chronic pancreatitis with dense pancreatic calcif ications and ductal dilatation. 2. Interval improvement in the pancreatic tail pseudocyst today measuring 1.8 x 2.3 CM. Smaller stable pseudocyst dorsal body of the pancreas. 3. Progressed patchy low-attenuation changes involving the spleen likely due t o splenic laceration with evolving infarcts. Thin perisplenic capsular collecti on. Patient at risk for superimposed splenic infection and abscess. Recommend c linical correlation for infectious symptoms. 4. No other significant changes from previous.
[2020-01-17] MEDS: iohexol 300 mg/mL 50 mL Btl PO (13:24)
[2020-01-17] MEDS: iohexol 300 mg/mL 100 mL Btl IV (13:25)
== END 2020-01-17 12:01 | disposition home or self-care (01) ==
LOC: RADWPI 12:05
PROVIDERS: PCP Family Medicine; Visit Provider Family Medicine
DX: R10.84 Generalized abdominal pain (principal); K86.1 Other chronic pancreatitis; K86.89 Other specified diseases of pancreas
CPT/HCPCS: 74160; Q9967

== ENCOUNTER → 2020-02-06 13:40 | Outpatient (BNVA) | payer MEDICARE, MEDICAID, SELFPAY | PROVIDERS: PCP Family Medicine; Visit Provider Nurse Practitioner Family | DX: M79.89 Other specified soft tissue disorders (principal); L03.90 Cellulitis, unspecified | CPT/HCPCS: 73130; 80053; 84550; 85025 ==

== ENCOUNTER 2020-07-03 09:22 | Outpatient (CLI) | payer MEDICARE, MEDICAID, SELFPAY ==
--- NOTE | 2020-07-03 09:29 | CT_ITS ---
WS: [id number] LDCT LUNG CANCER SCREENING HISTORY: HX OF TOBACCO USE TECHNIQUE: Axial imaging performed from the apices to 1 cm below the costophrenic angles. Coronal and sagittal reformats are submitted with axial MIP series. All CT scans at [facility] use at least one of these dose optimization techniques: automated exposure control; mA and/or kV adjustment per patient size (includes targeted exams where dose is matched to clinical indication); or iterativ e reconstruction. DLP: 58.94 mGy.cm DIvol: 1.58 mGy COMPARISON: 12/14/2019 and 05/08/2019 Diagnostic quality: Satisfactory Lung Nodules: No noncalcified pulmonary nodules or endobronchial lesions. Lungs: Paraseptal emphysematous changes. There are benign calcified nodules throughout the lungs. Heart: Normal size heart. There is significant calcific burden throughout the coronary arteries. Most significant burden is along the LEFT anterior descending coronary artery but also extends to the LEF T main coronary artery. Other findings: Calcified mediastinal and hilar lymph nodes. Mild atherosclerosis aorta. Calcificatio n in the upper abdomen is associated with the pancreas. Advanced degenerative disc disease and spondy litic changes in the mid to lower thoracic spine. CT/CT lung screening [id number] IMPRESSION: LUNG-RADS: 1S-Negative with Significant Findings FOLLOW UP: 12 Month: Continue annual screening with LDCT OTHER FINDINGS (S MODIFIER): Significant coronary artery calcifications. Consid er evaluation by cardiology if that has not been performed recently.
== END 2020-07-03 09:23 | disposition home or self-care (01) ==
LOC: CT 09:26
PROVIDERS: PCP Family Medicine; Visit Provider Family Medicine
DX: Z12.2 Encounter for screening for malignant neoplasm of respiratory organs (principal); Z87.891 Personal history of nicotine dependence; I70.0 Atherosclerosis of aorta
CPT/HCPCS: 71271

== ENCOUNTER → 2020-07-22 15:27 | Outpatient (BNVA) | payer MEDICARE, MEDICAID, SELFPAY | PROVIDERS: PCP Family Medicine; Visit Provider Urology | DX: N40.0 Benign prostatic hyperplasia without lower urinary tract symptoms (principal); N52.1 Erectile dysfunction due to diseases classified elsewhere | CPT/HCPCS: 81003 ==

== ENCOUNTER 2020-10-30 14:47 | Outpatient (CLI) | payer MEDICARE, MEDICAID, SELFPAY ==
--- NOTE | 2020-10-30 14:59 | USCV_ITS ---
Shaylee Jack Age: 69 Gender: M : 1950 Exam Date: 10/30/2020 15:21 Ordering Phys: Truong Kirby MD (Andy) ([email or web address] [place] [place]) Technologist: Doyle Gomez Exam Location: [facility] [place] Indication: H/O CEA Risk Factors: Previous Vascular Surgery: Right Brachial BP: / Left Brachial BP: / Right Left Velocity (cm/s) Spectral Plaque Velocity (cm/s) Spectral Plaque Syst/Diast Broadening Syst/Diast Broadening 85.00/ 12.80 Prox CCA 54.90 / 9.90 82.00/ 12.80 Mid CCA 53.60 / 17.90 68.40/ 12.00 Distal CCA 42.70 / 16.00 66.80/ 11.00 Prox ICA 99.90 / 26.30 92.90/ 23.60 Mid ICA 148.60/ 35.50 95.00/ 26.00 Distal ICA 131.50/ 39.40 292.50 ECA 88.10 1.13 ICA/CCA 2.77 Antegrade Vertebral Antegrade 92.60/ 17.60 cm/s 84.90/ 28.70 cm/s Tri Subclavian Tri 160.4 145.9 0 0 CONCLUSIONS Right ICA stenosis <50%. Left proximal ICA stenosis <50%. Slightly elevated velocity mid Left ICA has increased since previous 01/21. Prior Left CEA Normal antegrade Doppler flow noted in the right vertebral artery. Normal antegrade Doppler flow noted in the left vertebral artery. Kayode Chaparro MD (Electronically Signed) Final Date: 31 October 2020 15:02 S
== END 2020-10-30 14:48 | disposition home or self-care (01) ==
LOC: RAD 14:53
PROVIDERS: PCP Family Medicine; Visit Provider Thoracic Surgery (Cardiothoracic Vascular Surgery)
DX: I65.23 Occlusion and stenosis of bilateral carotid arteries (principal)
CPT/HCPCS: 93880

== ENCOUNTER 2020-11-06 11:36 | Outpatient (CLI) | payer MEDICARE, MEDICAID, SELFPAY ==
--- NOTE | 2020-11-06 11:44 | XR_ITS ---
WS: [id number] HIP WITH PELVIS LEFT TECHNIQUE: 3 views of the left hip with pelvis CLINICAL INFORMATION: HIP PAIN COMPARISON: None. FINDINGS: Advanced degenerative arthritis left hip with joint space narrowing and near [id number] articulatio n. Tiny amount of subchondral sclerosis. Femoral neck is normal. Normal pubic rami. Vascular calcific ation. Surgical clips overlying the left pelvis. XR/XR hip LT 2-3V wo/w pel* [id number] IMPRESSION: Moderate to advanced degenerative arthritis left hip. No acute fractures. Tonnis classification: grade 2: small cysts in femoral head/acetabulum or moder ate joint space narrowing or moderate loss of head sphericity
== END 2020-11-06 11:37 | disposition home or self-care (01) ==
PROVIDERS: PCP Family Medicine; Visit Provider Family Medicine
DX: M25.552 Pain in left hip (principal); M16.12 Unilateral primary osteoarthritis, left hip
CPT/HCPCS: 73502

== ENCOUNTER 2021-01-14 12:50 | Outpatient (CLI) | payer MEDICARE, MEDICAID, SELFPAY ==
--- NOTE | 2021-01-14 13:12 | CT_ITS ---
WS: [id number] CT ABDOMEN TECHNIQUE: Noncontrast CT of the abdomen with coronal and sagittal reformatted images. CLINICAL INFORMATION: GENERALIZED ABDOMINAL PAIN COMPARISON: CT January 17, 2020 DLP: 618.[address] scans at [facility] use at least one of these dose optimization techniques: automated e xposure control; mA and/or kV adjustment per patient size (includes targeted exams where dose is matc hed to clinical indication); or iterative reconstruction. FINDINGS: Stable changes of chronic pancreatitis with dense calcifications is stable with ductal dilatation. Sherri ng bases are well aerated. A few calcified granulomas. Noncontrast liver is normal. Noncontrast splee n appears normal today. Normal GE junction. Stable pseudocyst along the dorsal pancreas measuring 1.8 x 1.6 cm. Previously described pancreatic t ail pseudocyst adjacent to the spleen is not seen today and appears to have resolved. Tiny amount of soft tissue thickening in this area. Adrenal glands are normal. Atrophic right kidney. Dense vascular calcification. Normal noncontrast ga llbladder. Lobulated aneurysmal infrarenal abdominal aorta measuring 3.1 x 2.5 cm unchanged.Degenerat yessy disc disease with disc space narrowing worse at T9-T10 and and L1-2. L5 is sacralized on the righ t. CT/CT abdomen [facility] [id number] IMPRESSION: 1. Previously described pseudocyst pancreatic tail appears to have resolved to day with a small amount of residual soft tissue thickening in this area. Contra st not administered. 2. Stable small dorsal pancreatic pseudocyst. 3. Dense pancreatic parenchymal calcifications consistent with chronic pancrea titis. 4. Atrophic right kidney. This is unchanged. 5. Stable infrarenal abdominal aortic aneurysm measuring 3.1 x 2.5 cm.
[2021-01-14] MEDS: iohexol 300 mg/mL 50 mL Btl PO (13:15)
== END 2021-01-14 12:51 | disposition home or self-care (01) ==
PROVIDERS: PCP Family Medicine; Visit Provider Family Medicine
DX: R10.84 Generalized abdominal pain (principal); K86.3 Pseudocyst of pancreas; K86.1 Other chronic pancreatitis; N26.1 Atrophy of kidney (terminal); I71.4 Abdominal aortic aneurysm, without rupture
CPT/HCPCS: 74150; Q9967

== ENCOUNTER 2021-02-04 08:27 | Outpatient (CLI) | payer MEDICARE, MEDICAID, SELFPAY ==
--- NOTE | 2021-02-04 08:38 | US_ITS ---
WS: [id number] ULTRASOUND ABDOMEN CLINICAL INFORMATION: ABD PAIN COMPARISON: CT January 14, 2021 and ultrasound FINDINGS: Technically difficult examination due to bowel gas Liver Size: Normal. Craniocaudal length: 15.2 cm. Echogenicity: Normal. Surface nodularity: None. Mass (size and location): None. Bile ducts Intrahepatic ducts: Normal. Common bile duct diameter: 0.4 cm. Gallbladder Fluid distended gallbladder measuring 10.1 cm Gallstones: None. Gallbladder sludge: Present Gallbladder wall thickening: None. Pericholecystic fluid: None. Sonographic Zamora sign: Absent. Pancreas Not well seen Spleen Splenomegaly: None. Craniocaudal length: 10.0 cm. Right kidney: Right renal atrophy unchanged compared to previous Hydronephrosis: None. Size: 8.4 cm x 3.3 cm x 3.9 cm Left kidney: Normal. Hydronephrosis: None. Size: 12.7 cm x 5.9 cm x 5.2 cm. Abdominal aorta and IVC Visualized portions are normal. Ascites: None. US/US abdomen complete* [id number] IMPRESSION: Technically difficult examination due to bowel gas. 1. Normal liver. 2. Fluid distended gallbladder with sludge. No shadowing cholelithiasis. No ga llbladder wall thickening or pericholecystic fluid. 3. Normal common bile duct. 4. No hydronephrosis in either kidney. Right renal atrophy unchanged 5. Normal spleen.
== END 2021-02-04 08:28 | disposition home or self-care (01) ==
LOC: RAD 08:28
PROVIDERS: PCP Family Medicine; Visit Provider Family Medicine
DX: R10.84 Generalized abdominal pain (principal); N26.1 Atrophy of kidney (terminal)
CPT/HCPCS: 76700

== ENCOUNTER 2021-03-04 09:37 | Outpatient (CLI) | payer MEDICARE, MEDICAID, SELFPAY ==
--- NOTE | 2021-03-04 09:43 | NM_ITS ---
WS: [id number] NUCLEAR MEDICINE HIDA SCAN CLINICAL INFORMATION: GALLBLADDER SLUDGE TECHNIQUE: Following intravenous administration of 8.2 mCi of technetium 99m mebrofenin, images of th e abdomen were obtained over the course of 60 minutes. Next, gallbladder ejection fraction was determ ined by obtaining preprandial and one-hour postprandial images of the gallbladder following oral josh stion of Ensure. COMPARISON: Ultrasound February 04, 2021 FINDINGS: Normal hepatic uptake at 5 minutes. Normal hepatic excretion. Gallbladder is visualized by 15 minutes . No evidence of acute cholecystitis. Normal common bile duct and small bowel activity. Gallbladder ejection fraction 31% at the lower end of the range suspicious for gallbladder dysfunctio n. NM/NM hepatobiliary w phar* [id number] IMPRESSION: Gallbladder ejection fraction 31% suspicious for gallbladder dysfunction. Recom mend correlation for chronic cholecystitis.
== END 2021-03-04 09:38 | disposition home or self-care (01) ==
LOC: NM 09:38
PROVIDERS: PCP Family Medicine; Visit Provider Family Medicine
DX: K82.8 Other specified diseases of gallbladder (principal)
CPT/HCPCS: 78227; A9537

== ENCOUNTER → 2021-04-21 16:57 | Outpatient (BNVA) | payer MEDICARE, MEDICAID, SELFPAY | PROVIDERS: PCP Family Medicine; Visit Provider Urology | DX: N52.1 Erectile dysfunction due to diseases classified elsewhere (principal) | CPT/HCPCS: 81003 ==

== ENCOUNTER 2021-09-04 10:45 | Outpatient (CLI) | payer MEDICARE, MEDICAID, SELFPAY ==
--- NOTE | 2021-09-04 11:02 | CT_ITS ---
WS: [id number] LDCT LUNG CANCER SCREENING TECHNIQUE: Noncontrast CT of the chest with coronal and sagittal reformatted images. CLINICAL INFORMATION: HX OF TOBACCO USE COMPARISON: July 03, 2020 DLP: 71.52 mGy.cm DIvol: Mean CTDIvol: 1.60 (mGy) All CT scans at [facility] use at least one of these dose optimization techniques: automat ed exposure control; mA and/or kV adjustment per patient size (includes targeted exams where dose is matched to clinical indication); or iterative reconstruction. FINDINGS: Moderate chronic emphysematous changes. Paraseptal emphysema. No acute pulmonary infiltrates. No foca l pneumonia or pleural fluid. No suspicious. Global opacities. Moderate aortic calcification. Dense coronary calcification. Calcified anterior mediastinal and hilar lymph nodes. Calcified subcarinal lymph nodes. A few calcified granulomas. No axillary lymphadenopathy. Adrenal glands are normal. Pancreatic calcification partially visualized likely due to chronic pancre atitis. Normal GE junction. Mild thoracic kyphosis. Advanced narrowing in the mid thoracic spine with endplate degenerative changes and sclerosis. Hypertrophic changes anterior thoracic spine. CT/CT lung screening [id number] IMPRESSION:OTHER FINDINGS (S MODIFIER): Significant coronary artery calcificati ons. Consider evaluation cardiology evaluation if not previously performed. LUNG-RADS: 1S-Negative with Significant Findings FOLLOW UP: 12 Month: Continue annual screening with LDCT
== END 2021-09-04 10:46 | disposition home or self-care (01) ==
LOC: RAD 10:47
PROVIDERS: PCP Family Medicine; Visit Provider Family Medicine
DX: Z12.2 Encounter for screening for malignant neoplasm of respiratory organs (principal); F17.210 Nicotine dependence, cigarettes, uncomplicated
CPT/HCPCS: 71271

== ENCOUNTER → 2021-11-23 14:51 | Outpatient (BNVA) | payer MEDICARE, MEDICAID, SELFPAY | PROVIDERS: PCP Family Medicine; Visit Provider Nurse Practitioner Family | DX: R19.8 Other specified symptoms and signs involving the digestive system and abdomen (principal); R10.9 Unspecified abdominal pain; R10.819 Abdominal tenderness, unspecified site | CPT/HCPCS: 74018; 80053; 85025 ==

== ENCOUNTER → 2021-12-10 10:01 | Outpatient (BNVA) | payer MEDICARE, MEDICAID, SELFPAY | PROVIDERS: PCP Family Medicine; Visit Provider Nurse Practitioner Family | DX: R71.8 Other abnormality of red blood cells (principal); R73.9 Hyperglycemia, unspecified | CPT/HCPCS: 82607; 82746; 83036 ==

== ENCOUNTER → 2021-12-14 10:32 | Outpatient (BNVA) | payer MEDICARE, MEDICAID, SELFPAY | PROVIDERS: PCP Family Medicine; Referring Provider Nurse Practitioner Family; Visit Provider Surgery | DX: K59.09 Other constipation (principal); R10.9 Unspecified abdominal pain | CPT/HCPCS: 99203 ==

== ENCOUNTER 2022-02-12 07:04 | Day surgery (SDC) | payer MEDICARE, MEDICAID, SELFPAY ==
[2022-02-10 14:12] VITALS: BMI 23.6
[2022-02-12 07:25] VITALS: BP 161/63; PULSE 71; RESP 18; TEMP 36.6; O2SAT 97
[2022-02-12] MEDS: sodium chloride 0.9% 1,000 ML 30 ML IV (07:37)
[2022-02-12 07:43] LABS: Glucose Point of Care 82 mg/dL (70-110)
--- NOTE | 2022-02-12 08:00 | ANES.PREANE2 ---
Pre-Anesthetic Assessment Height/Weight: Height 1.75 m Weight 72.575 kg Temp Pulse Resp BP Pulse Ox O2 Del Method 97.8 F 71 18 161/63 97 02/12/22 07:25 02/12/22 07:25 02/12/22 07:25 02/12/22 07:25 02/12/22 07:25 02/12/22 07:25 Preop Diagnosis: Abdominal pain Operation Date: 02/12/22 08:45 Proposed Procedures p Colonoscopy 95670,K59.09(Not Applicable) - Rd Escobar MD Familial anesthetic complications: none Was Beta Kelly taken within 24 hours: Yes Was Clonidine taken within 24 hours: N/A Last intake: Intake Last Liquid Date 02/11/22 Last Liquid Time 22:00 Last Solid Date 02/10/22 Last Solid Time 20:00 Last Intake: 22:00 Social Tobacco 1ppd pack(s) per day 50+ pack years Exam alert, oriented x 3, clear to auscultation bilaterally and regular rate & rhythm Airway Submandibular: within normal limits Cervical ROM: within normal limits Mallampati: Class II Dentition: false (upper) Pulmonary Asthma CV/HEM Anemia, Coronary Artery Disease, Hypertension, Myocardial Infarction (ptca 4 years ago No CP since) and Peripheral Vascular Disease (CEA) None reported Hepatic None reported GI Gastroesophageal Reflux Disease Metabolic Diabetes Mellitus (diet controlled) Musc/skel Lower Back Pain and Osteoarthritis/DJD Neuropsych Anxiety and Depression Anesthetic Plan ASA status: 3 Anesthesia: MAC Risk of > 500 ml blood loss (7ml/kg in children): No Medications/Allergies Home Medications Medication Instructions Recorded Confirmed Last Taken Type amlodipine 10 mg tablet 10 mg PO DAILY 09/20/19 02/12/22 02/10/22 History atorvastatin 80 mg tablet 80 mg PO DAILY 07/22/20 02/12/22 02/10/22 History metoprolol succinate 50 mg 50 mg PO DAILY #30 tabs 11/17/21 02/12/22 02/11/22 Rx tablet,extended release 24 hr magnesium hydroxide 400 mg/5 mL 60 ml PO DAILY PRN constipation 11/23/21 02/12/22 02/10/22 Rx oral suspension (Dietz Milk of #355 mL Magnesia) allopurinol 100 mg tablet 200 mg PO DAILY #180 tabs 12/28/21 02/12/22 02/10/22 Rx bupropion HCl 150 mg 24 hr tablet, 150 mg PO QAM #90 tabs 12/28/21 02/12/22 02/12/22 Rx extended release (Wellbutrin XL) clopidogrel 75 mg tablet 75 mg PO DAILY #90 tabs 12/28/21 02/12/22 02/08/22 Rx fluticasone 250 mcg-salmeterol 50 1 inh inhalation Q12H SOB #60 ea 12/28/21 02/12/22 02/10/22 Rx mcg/dose blistr powdr for inhalation (Advair Diskus) isosorbide mononitrate 30 mg 15 mg PO DAILY #45 tabs 12/28/21 02/12/22 02/11/22 Rx tablet,extended release 24 hr lisinopril 5 mg tablet 5 mg PO BID #180 tabs 12/28/21 02/12/22 02/11/22 Rx mometasone 0.1 % topical solution 1 applic topical DAILY #60 mL 12/28/21 02/12/22 Unknown Rx spironolactone 25 mg tablet 12.5 mg PO DAILY #45 tabs 12/28/21 02/12/22 02/11/22 Rx tamsulosin 0.4 mg capsule 0.4 mg PO DAILY #90 caps 12/28/21 02/12/22 02/11/22 Rx trazodone 150 mg tablet 300 mg PO BEDTIME #60 tabs 12/28/21 02/12/22 02/11/22 Rx umeclidinium 62.5 mcg/actuation 1 inh inhalation DAILY #30 ea 12/28/21 02/12/22 02/10/22 Rx blister powder for inhalation (Incruse Ellipta) hydrocodone 10 mg-acetaminophen 1 tab PO QID 30 days #120 tabs 01/20/22 02/12/22 02/12/22 Rx 325 mg tablet Allergies Allergy/AdvReac Type Severity Reaction Status Date / Time No Known Allergies Allergy Verified 02/12/22 08:31 Current Medications Generic Name Dose Route Start Last Admin Trade Name Freq PRN Reason Stop Dose Admin Sodium Chloride 1,000 mls @ 30 mls/hr 02/12/22 07:15 02/12/22 07:37 Sodium Chloride 0.9% IV 30 mls/hr .Q24H MAKSIM Administration PFSH Anesthesia Medical History BPH (benign prostatic hyperplasia) Carotid stenosis, bilateral Carotid stent occlusion COPD (chronic obstructive pulmonary disease) Coronary artery disease Diabetes mellitus Diabetes mellitus Erectile dysfunction History of nonmelanoma skin cancer Hypertension Low testosterone in male Mitral regurgitation Peripheral arterial disease Surgical History History of aorto-femoral bypass History of coronary angioplasty with insertion of stent last PCI to mid LAD by Dr. Cervantes 10/26/16 History of inguinal hernia repair RIGHT Hx of appendectomy Hx of foot surgery RIGHT S/P carotid endarterectomy Family History Father , AT AGE 63 CAD (coronary artery disease) Mother , AT AGE 93 No problems noted. Social History Smoking and tobacco status: current every day smoker cigarettes Packs smoked per day: 0.5 Second hand smoke exposure: No Smoking risk assessment/counseling performed?: Yes Alcohol intake: former Former alcohol use details: occasional alcohol use in the past, denies any heavy alcohol use in the pas Desire information about alcohol rehabilitation?: No Desire information about substance/drug rehabilitation?: No Counseling given: No Adopted: No Caregiver/support person: No Household members: none Housing: House Marital status: service: Yes branch: [employer] Current occupational status: disabled Current occupational exposures/hazards: No History of recent travel: No Current gender identity: Male Data Anesthesia Cardiac Studies: Echocardiogram Ultrasound 06/08/19
--- NOTE | 2022-02-12 08:29 | W.PM.OPSFHP ---
Same Day Surgery H&P Indication for Procedure/HPI DATE OF PROCEDURE: February 12, 2022 CHIEF COMPLAINT/INDICATIONFOR SURGICAL PROCEDURE: Abdominal pain PREOP DIAGNOSIS: Abdominal pain PLANNED PROCEDURE: Operation Date: 02/12/22 08:45 Proposed Procedures p Colonoscopy 59236,K59.09(Not Applicable) - Rd Escobar MD This is a pleasant 71 years old gentleman referred to my practice with history of lower abdominal pain, he said that he had a hernia repair about 2 to 3 years ago with mesh placement.? He refers that he has been having worsening constipation and last colonoscopy was done few years ago. CT of the abdomen pelvis was done back in January 2021 1.? Previously described pseudocyst pancreatic tail appears to have resolved today with a small amount of residual soft tissue thickening in this area. Contrast not administered. 2.? Stable small dorsal pancreatic pseudocyst. 3.? Dense pancreatic parenchymal calcifications consistent with chronic pancreatitis. 4.? Atrophic right kidney. This is unchanged. 5.? Stable infrarenal abdominal aortic aneurysm measuring 3.1 x 2.5 cm. Done abdominal ultrasound was done in February 2021 1.? Normal liver. 2.? Fluid distended gallbladder with sludge. No shadowing cholelithiasis. No gallbladder wall thickening or pericholecystic fluid. 3.? Normal common bile duct. 4.? No hydronephrosis in either kidney. Right renal atrophy unchanged 5.? Normal spleen. ? Followed by a HIDA scan done in March 2021 Gallbladder ejection fraction 31% suspicious for gallbladder dysfunction. Recommend correlation for chronic cholecystitis. Patient denies any history of fatty dyspepsia or any symptoms related to his gallbladder per his description.? Pain is mostly dull aching towards the lower part of the abdomen nothing seems to make it better or worse may be when he does have a bowel movement slight bit better but is not being referred. 02/12/2022 Patient is coming today for colonoscopy ROS All systems have been reviewed negative except as for the above or per problem list. Medications/Allergies* Home Medications Medication Instructions Recorded Confirmed Type amlodipine 10 mg tablet 10 mg PO DAILY 09/20/19 02/12/22 History atorvastatin 80 mg tablet 80 mg PO DAILY 07/22/20 02/12/22 History Allergies/Adverse Reactions Allergy/AdvReac Type Severity Reaction Status Date / Time No Known Allergies Allergy Verified 02/12/22 08:31 Current Medications: Generic Name Dose Route Start Last Admin Trade Name Che PRN Reason Stop Dose Admin Sodium Chloride 1,000 mls @ 30 mls/hr 02/12/22 07:15 02/12/22 07:37 Sodium Chloride 0.9% IV 30 mls/hr .Q24H MAKSIM Administration Pertinent History/Comorbid Conditions* Medical History (Updated 12/14/21 @ 13:[address]obar MD) BPH (benign prostatic hyperplasia) Carotid stenosis, bilateral Carotid stent occlusion COPD (chronic obstructive pulmonary disease) Coronary artery disease Diabetes mellitus Diabetes mellitus Erectile dysfunction History of nonmelanoma skin cancer Hypertension Low testosterone in male Mitral regurgitation Peripheral arterial disease Surgical History (Updated 12/14/19 @ 12:21 by Priscilla Marie DO) History of aorto-femoral bypass History of coronary angioplasty with insertion of stent last PCI to mid LAD by Dr. Cervantes 10/26/16 History of inguinal hernia repair RIGHT Hx of appendectomy Hx of foot surgery RIGHT S/P carotid endarterectomy Family History (Updated 07/12/19 @ 14:31 by Dari Salas RN) Father, AT AGE 63 Mother, AT AGE 93 CAD (coronary artery disease) Father Social History Smoking and tobacco status: current every day smoker cigarettes Packs smoked per day: 0.5 Second hand smoke exposure: No Smoking risk assessment/counseling performed?: Yes Alcohol intake: former Former alcohol use details: occasional alcohol use in the past, denies any heavy alcohol use in the pas Desire information about alcohol rehabilitation?: No Desire information about substance/drug rehabilitation?: No Counseling given: No Adopted: No Caregiver/support person: No Household members: none Housing: House Marital status: service: Yes branch: [employer] Current occupational status: disabled Current occupational exposures/hazards: No History of recent travel: No Current gender identity: Male Pertinent Exam Findings alert, oriented x 3, regular rate & rhythm and procedure specific exam findings (Abdominal exam nontender nondistended soft) Recommendations Surgery/Procedure today (Colonoscopy with possible biopsy) Coding Level of Care Code Acute Teradata Developer for Lissette Lindquist
[2022-02-12 09:26] VITALS: BP 149/60; PULSE 79; RESP 18; TEMP 36.4; O2SAT 100
[2022-02-12 09:43] VITALS: BP 160/64; PULSE 72; RESP 18; O2SAT 98
--- NOTE | 2022-02-12 09:54 | P.PCN_ITS ---
PACU note Narrative: VSS, Good respiratory effort, report to FILTER ASSEMBLER Exam: awake
--- NOTE | 2022-02-12 09:54 | PM.PACU ---
PACU note Narrative: VSS, Good respiratory effort, report to BOOT REPAIRER Exam: awake
--- NOTE | 2022-02-12 14:59 | ANE.PACU2 ---
Inpatient post-anesthesia follow up: Airway intact: Yes Vital signs: Temperature 97.5 F Pulse Rate 72 Respiratory Rate 18 Blood Pressure 160/64 Pulse Oximetry 98 Oxygen Delivery Me thod Room Air Oxygen Flow Rate 2 Fraction of Inspir ed Oxygen Hydration adequate: Yes Nausea and vomiting: No Pain level: 1 Mental status: Baseline
== END 2022-02-12 09:59 | disposition home or self-care (01) ==
PROVIDERS: PCP Family Medicine; Visit Provider Surgery
PROC: 0DJD8ZZ Inspection of Lower Intestinal Tract, Via Natural or Artificial Opening Endoscopic (ICD-10-PCS; CPT 45378; principal; 2022-02-12 08:45)
DX: K59.09 Other constipation (principal); K57.30 Diverticulosis of large intestine without perforation or abscess without bleeding; D12.2 Benign neoplasm of ascending colon; N40.0 Benign prostatic hyperplasia without lower urinary tract symptoms; J44.9 Chronic obstructive pulmonary disease, unspecified; I25.10 Atherosclerotic heart disease of native coronary artery without angina pectoris; E11.9 Type 2 diabetes mellitus without complications; I10 Essential (primary) hypertension; F17.210 Nicotine dependence, cigarettes, uncomplicated; I25.2 Old myocardial infarction; K21.9 Gastro-esophageal reflux disease without esophagitis
CPT/HCPCS: 36416; 45385; 82962; J2704; J7030

== ENCOUNTER → 2022-02-18 15:23 | Outpatient (BNVA) | payer MEDICARE, MEDICAID, SELFPAY | PROVIDERS: PCP Family Medicine; Visit Provider Surgery | DX: Z09 Encounter for follow-up examination after completed treatment for conditions other than malignant neoplasm (principal); N40.0 Benign prostatic hyperplasia without lower urinary tract symptoms; K63.5 Polyp of colon; K57.31 Diverticulosis of large intestine without perforation or abscess with bleeding | CPT/HCPCS: 99212 ==

== ENCOUNTER 2022-03-10 10:42 | Inpatient (IN) | payer MEDICARE, MEDICAID, SELFPAY ==
[2022-03-10] VITALS (105 sets, daily range): BP systolic 112–171; BP diastolic 44–95; PULSE 78–127; RESP 10–29; TEMP 36.7–37.7; O2SAT 65–99; BMI 22.1
--- NOTE | 2022-03-10 10:56 | CT_ITS ---
WS: [id number] CT FACIAL BONES HISTORY: fall and hit face-abrasions on face TECHNIQUE: Images obtained from the supraorbital location through the mandible. Soft tissue and bone windows are reviewed. Coronal and sagittal reformats have also been submitted. DLP: 1977.[address] scans at [facility] use at least one of these dose optimization techniques: automated e xposure control; mA and/or kV adjustment per patient size (includes targeted exams where dose is matc hed to clinical indication); or iterative reconstruction. COMPARISON: Sinus CT 02/13/2007 Nasal bones and zygomatic arches are intact. No air-fluid levels or blood fluid levels in the sinuses . Normal appearance of the mandible and maxilla. Visualized upper cervical spine is negative for acut e injury. Orbits and globes are normal. Remote nondisplaced fracture involving the RIGHT frontal bone with extension into the frontal sinus. No significant soft tissue hematoma. LEFT carotid artery stent. CT/CT facial bones wo con* [id number] IMPRESSION: 1. No acute facial bone fractures. 2. No significant soft tissue hematoma or contusion. 3. Remote fracture RIGHT frontal bone.
--- NOTE | 2022-03-10 10:56 | CT_ITS ---
WS: [id number] CT HEAD NONCONTRAST HISTORY: fall with head injury, negative LOC TECHNIQUE: Contiguous axial imaging performed through the brain in 2.5 mm imaging. Bone and soft tiss ue windows. Sagittal and coronal reformats reviewed. All CT scans at [facility] use at least one of these dose optimization techniques: automated exposure control; mA and/or kV adjustment per pa tient size (includes targeted exams where dose is matched to clinical indication); or iterative recon struction. DLP: 1977.98 mGy.cm COMPARISON: None available. No acute intracranial hemorrhage, midline shift or mass effect. Mild cerebral atrophy. Bilateral, chronic frontal lobe inferior infarcts. Probably posttraumatic in e tiology. Moderate small vessel ischemic disease is also evident. Small lacunar infarct in the RIGHT basal ganglia. Ventricles: Normal size with no hydrocephalus. No inferior displacement of cerebellar tonsils. Paranasal sinuses: Mild mucoperiosteal thickening in the ethmoid air cells. Remote fracture through t he anterior RIGHT frontal lobe extends into the frontal sinus. Similar to 2006. Mastoid air cells: Well pneumatized. Calvarium and scalp: No acute skull fracture. No significant edema or hematoma. CT/CT head wo con* [id number] IMPRESSION: 1. No acute intracranial hemorrhage or edema. 2. 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 Distribution sug gests posttraumatic in etiology. 3. Remote fracture RIGHT frontal bone. 4. No acute skull fracture or hematoma. 5. Mild atrophy with moderate small vessel ischemic disease.
--- NOTE | 2022-03-10 10:56 | CT_ITS ---
WS: [id number] CT CERVICAL SPINE HISTORY: fall with neck pain TECHNIQUE: Contiguous 2.5 mm axial imaging performed through the entire cervical spine. Sagittal and coronal reformats also performed. All CT scans at [facility] use at least one of these dose o ptimization techniques: automated exposure control; mA and/or kV adjustment per patient size (include s targeted exams where dose is matched to clinical indication); or iterative reconstruction. DLP: 1977.98 mGy.cm COMPARISON: Neck CT 03/16/2007 Moderate RIGHT curvature of the cervical spine. Degenerative scoliosis. Craniocervical junction is no rmally aligned. Lateral masses of C1 and C2 are aligned. Calcification of the patellar ligament. Carbon toid is intact. Severe disc space narrowing and desiccation at C5-6. Facet joints appear normally ali gned. Complete fusion between the LEFT facet joint at C5-6. C2-C3: Moderate LEFT facet joint arthritis. Mild foraminal narrowing and small central disc protrusio n. C3-C4: Central disc protrusion and facet arthritis. C4-C5: Diffuse osteophytic ridging and facet joint arthritis. Mild central and bilateral foraminal st enosis. C5-C6: Bilateral facet joint arthritis. Osteophytic ridging. Mild foraminal narrowing. C6-C7: No stenosis. C7-T1: Normal. Dense area of consolidation with surrounding groundglass attenuation LEFT upper lobe. Consolidation a nd adjacent groundglass attenuation measures 4.4 x 5.0 cm. Centrilobular emphysema at the apices. LEFT carotid stent. CT/CT cervical spin wo con* [id number] IMPRESSION: 1. No acute cervical spine fracture. 2. Multilevel facet joint arthritis and foraminal stenoses as above. 3. Severe degenerative disc disease at C5-6 with complete ankylosis of the LEF T facet joint. 4. Dense area of consolidation partially visualized in the LEFT upper lobe. On a prior recent CT from 09/04/2021 there was no mass identified. Differential inc ludes interval development of a neoplasm versus pneumonia. Favor pneumonia. [place] st radiograph and follow-up to resolution is recommended.
--- NOTE | 2022-03-10 10:56 | ECG_ITS ---
[facility] Test Date: 2022-03-10 Pat Name: Jack June Department: Room: Gender: Male Sports Attorney: : 1950 Requested By: Maynor Han Order Number: [id number] Friedman MD: Jovanny Armstrong M.D. Measurements Intervals [place] Rate: 82 P: 21 IA: 175 QRS: -86 QRSD: 146 T: 69 QT: 370 QTc: 434 Interpretive Statements SINUS RHYTHM WITH OCCASIONAL SUPRAVENTRICULAR PREMATURE COMPLEXES POSSIBLE LEFT ATRIAL ENLARGEMENT [-0.1mV P-WAVE IN V1/V2] RIGHT BUNDLE BRANCH BLOCK [120+ ms QRS DURATION, UPRIGHT V1, 40+ ms S IN I/aVL/V4/V5/V6] LEFT ANTERIOR FASCICULAR BLOCK [QRS AXIS <= -45, QR IN I, RS IN II] Compared to ECG 12/14/2019 14:54:24 Right bundle-branch block now present Left anterior fascicular block now present Sinus tachycardia no longer present Left-axis deviation no longer present Intraventricular conduction delay no longer present Electronically Signed On 03-10-2022 16:16:31 SOFTWARE SALES by Jovanny Armstrong M.D. [id number]
--- NOTE | 2022-03-10 11:01 | W.ED.MALEGU ---
Documented by User: ANTOINETET Evans 03/11/22 09:07 HPI - Male Genitourinary General: Chief complaint: Urogenital-Male Stated complaint: fall, head injury Time Seen by Provider: 03/10/22 10:46 History of Present Illness: Patient is a 71-year-old male comes to the ED with a fall injury and urinary complaint. Patient says for the past week he has been having some bladder pain, burning with urination and increased urinary frequency. He also reports that sometimes he is only able to get out a little bit of urine even though he feels like he has to go. This morning he was laying down and got up and took a couple steps and got dizzy and fell. He denies any loss of consciousness but did hit his head and face on the wall. He was able to get back up. Patient does take Plavix. He is complaining of having a headache and some neck pain along with some bruising and abrasions on his forehead and nose. Denies any other symptoms. Associated symptoms: Reports dysuria; Deny hematuria, nausea or vomiting Review of Systems Const: Denies: fever(s), chills or fatigue Eyes: Denies: change in vision or eye discomfort ENMT: Denies: throat pain, odynophagia, nasal discharge or nasal congestion Card: Denies: chest pain, palpitations, edema, swelling of feet/ankles, dyspnea on exertion or orthopnea Resp: Denies: dyspnea, productive cough or non-productive cough GI: Denies: abdominal pain, nausea, vomiting, diarrhea, constipation or hematochezia : Reports: difficulty urinating, dysuria, urinary frequency and urinary dribbling; Denies: flank pain or hematuria Musc: Reports: neck pain; Denies: back pain or extremity swelling Skin/Breast: Denies: rash or new lesions Neuro: Reports: headache(s) (Fall with head injury, negative LOC); Denies: numbness in extremities or weakness in extremities PFS ED PFSH: Medical History BPH (benign prostatic hyperplasia) Carotid stenosis, bilateral Carotid stent occlusion COPD (chronic obstructive pulmonary disease) COPD (chronic obstructive pulmonary disease) Coronary artery disease Diabetes mellitus Diabetes mellitus Erectile dysfunction History of nonmelanoma skin cancer Hypertension Low testosterone in male Mitral regurgitation Peripheral arterial disease Surgical History History of aorto-femoral bypass History of coronary angioplasty with insertion of stent last PCI to mid LAD by Dr. Cervantes 10/26/16 History of inguinal hernia repair RIGHT Hx of appendectomy Hx of foot surgery RIGHT S/P carotid endarterectomy Family History Father , AT AGE 63 CAD (coronary artery disease) Mother , AT AGE 93 No problems noted. Social History Smoking and tobacco status: current every day smoker cigarettes Packs smoked per day: 0.5 Second hand smoke exposure: No Smoking risk assessment/counseling performed?: Yes Alcohol intake: former Former alcohol use details: occasional alcohol use in the past, denies any heavy alcohol use in the pas Desire information about alcohol rehabilitation?: No Desire information about substance/drug rehabilitation?: No Counseling given: No Adopted: No Caregiver/support person: No Household members: none Housing: House Marital status: service: Yes branch: [employer] Current occupational status: disabled Current occupational exposures/hazards: No History of recent travel: No Current gender identity: Male Physical Exam Const: COMMON NORMALS: patient oriented x3 and alert GENERAL APPEARANCE: cooperative HENMT: COMMON NORMALS: normocephalic HEAD & SCALP: normocephalic FACE & SINUS: abrasion (Abrasion on nose) and ecchymosis (On forehead and nose.) MOUTH: Normal oral and palatal mucosa present THROAT: posterior oropharynx normal and uvula midline Eye: COMMON NORMALS: Equal, round and reactive pupils present and EOMs intact bilaterally GENERAL EYE: appearance normal, both eyes and all related structures CONJUNCTIVA: Yes conjunctival abnormal positive left conjunctival injection diffuse PUPIL: Yes Equal, round and reactive pupils present Neck/C-Spine: COMMON NORMALS: supple GENERAL: Yes normal visual inspection CERVICAL SPINE: No Cervical spine tenderness, Yes Paracervical muscle tenderness bilateral and Yes Trapezius muscle tenderness bilateral Lymph: LYMPHATIC: no lymphadenopathy noted Resp: COMMON NORMALS: normal respiratory effort, No retractions, No use of accessory muscles and clear to auscultation bilaterally AUSCULTATION: clear to auscultation bilaterally Cardio: COMMON NORMALS: regular rate, regular rhythm, S1 normal heart sound present, S2 normal heart sound present, No gallops present (Cardio), No clicks present (Cardio), No murmurs present (Cardio) and Peripheral pulses 2+ throughout RATE: regular rate RHYTHM: regular rhythm HEART SOUNDS: S1 normal heart sound present and S2 normal heart sound present PERIPHERAL PULSES: Peripheral pulses 2+ throughout GI: COMMON NORMALS: Normal to inspection, nondistended, normoactive bowel sounds present, Soft to palpation, non-tender and no masses PALPATION: Yes Soft to palpation : COMMON NORMALS: Yes no CVA tenderness BLADDER/KIDNEY EXAM: Yes no CVA tenderness Back/Pelvis: COMMON NORMALS: no CVA tenderness Extremity: GENERAL: Yes normal exam except as noted Neuro: COMMON NORMALS: patient oriented x3, CN's II-XII intact bilaterally, moves all extremities, no focal motor deficits and no sensory deficits noted SENSORIUM/ORIENTATION: Yes alert COORDINATION/BALANCE: [id number] test normal SPEECH: speech normal GAIT: Yes Normal gait present SENSORY EXAM: Yes extremities (intact) MOTOR EXAM: 5/5 motor strength present throughout COORDINATION: [id number] test normal Skin: COMMON NORMALS: no rashes or lesions noted GENERAL SKIN EXAM: no rashes or lesions noted and dry skin Course Vital Signs: Vital signs: Vital Signs Temperature 98.1 F 03/11/22 07:44 Pulse Rate 128 H 03/11/22 07:44 Respiratory Rate 22 H 03/11/22 07:44 Blood Pressure 157/68 03/11/22 07:44 Pulse Oximetry 85 L 03/11/22 07:44 Oxygen Delivery Me thod 03/11/22 07:44 Oxygen Flow Rate 10 03/11/22 07:44 MDM - Male Lab Data I reviewed the patient's lab results. 03/10/22 11:19 03/10/22 11:19 Radiology Impressions Cervical Spine CT 03/10/22 10:56 IMPRESSION: 1. No acute cervical spine fracture. 2. Multilevel facet joint arthritis and foraminal stenoses as above. 3. Severe degenerative disc disease at C5-6 with complete ankylosis of the LEFT facet joint. 4. Dense area of consolidation partially visualized in the LEFT upper lobe. On a prior recent CT from 09/04/2021 there was no mass identified. Differential includes interval development of a neoplasm versus pneumonia. Favor pneumonia. Chest radiograph and follow-up to resolution is recommended. Face CT 03/10/22 10:56 IMPRESSION: 1. No acute facial bone fractures. 2. No significant soft tissue hematoma or contusion. 3. Remote fracture RIGHT frontal bone. Head CT 03/10/22 10:56 IMPRESSION: 1. No acute intracranial hemorrhage or edema. 2. 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 Distribution suggests posttraumatic in etiology. 3. Remote fracture RIGHT frontal bone. 4. No acute skull fracture or hematoma. 5. Mild atrophy with moderate small vessel ischemic disease. Chest X-Ray 03/10/22 20:01 IMPRESSION: Multifocal pneumonia. Chest CTA 03/10/22 21:10 IMPRESSION: 1. No pulmonary embolus or aortic dissection. 2. Peripheral ground-glass opacities with some central opacities in the right upper lobe, right middle lobe and right lower lobe consistent with moderate to severe right upper lobe, moderate right middle lobe and mild right lower lobe COVID-19 pneumonia versus other pneumonia. 3. Dense airspace disease in the posterior segment left upper lobe with air bronchograms suggesting possible bacterial pneumonia such as pneumococcal or Klebsiella with some bulging fissures. 4. Moderate paraseptal emphysema. 5. Mild centrilobular emphysema. 6. Mild geographic ground-glass opacities in the anterior portion of the left upper lobe suggesting possible COVID-19 pneumonia versus other pneumonia. 7. Severe chronic calcific pancreatitis. Laboratory Results WBC 14.7 10^3/uL (4.0-10.0) H 03/10/22 11:19 RBC 4.16 10^6/uL (4.1-5.3) 03/10/22 11:19 Hgb 14.0 g/dL (11.7-16.6) 03/10/22 11:19 Hct 41.4 % (42.0-52.0) L 03/10/22 11:19 MCV 99.5 fl (80-94) H 03/10/22 11:19 MCH 33.7 pg (28.0-34.0) 03/10/22 11:19 MCHC 33.8 g/dL (30.0-36.0) 03/10/22 11:19 RDW 13.2 % (12.1-15.1) 03/10/22 11:19 Plt Count 119 10^3/cmm (130-400) L 03/10/22 11:19 MPV 12.1 fL (7.4-10.4) H 03/10/22 11:19 Neut % (Auto) 88.4 % 03/10/22 11:19 Lymph % (Auto) 3.3 % 03/10/22 11:19 [place] % (Auto) 7.9 % 03/10/22 11:19 Eos % (Auto) 0.0 % 03/10/22 11:19 Baso % (Auto) 0.1 % 03/10/22 11:19 Neut # (Auto) 13.02 10^3/uL (1.8-7.7) H 03/10/22 11:19 Lymph # (Auto) 0.5 10^3/uL (0.8-4.8) L 03/10/22 11:19 [place] # (Auto) 1.2 10^3/uL (0.2-0.9) H 03/10/22 11:19 Eos # (Auto) 0.0 10^3/uL (0.0-0.8) 03/10/22 11:19 Baso # (Auto) 0.0 10^3/uL (0.0-0.1) 03/10/22 11:19 Nucleated RBC % (auto) 0 % 03/10/22 11:19 Nucleated RBCs # 0.0 /100WBC 03/10/22 11:19 Sodium 132 mmol/L (136-145) L 03/10/22 11:19 Potassium 3.9 mmol/L (3.5-5.1) 03/10/22 11:19 Chloride 95 mmol/L (98-107) L 03/10/22 11:19 Carbon Dioxide 25 mmol/L (22-29) 03/10/22 11:19 Anion Gap 15.9 (5-19) 03/10/22 11:19 BUN 13 mg/dL (8-23) 03/10/22 11:19 Creatinine 1.1 mg/dL (0.7-1.2) 03/10/22 11:19 GFR Calculation Not Reportable 03/10/22 11:19 Glucose 127 mg/dL (65-115) H 03/10/22 11:19 Calculated Osmolality 276 mOsm/kg (285-295) L 03/10/22 11:19 Calcium 9.2 mg/dL (8.5-10.5) 03/10/22 11:19 Total Bilirubin 0.5 mg/dL (0.15-1.2) 03/10/22 11:19 AST 66 U/L (0-40) H 03/10/22 11:19 ALT 23 U/L (0-41) 03/10/22 11:19 Alkaline Phosphatase 67 U/L (40-130) 03/10/22 11:19 Troponin T Baseline 51 ng/L (0-15) H 03/10/22 11:19 Troponin T 120 Minute 43.83 ng/L (0-15) H 03/10/22 13:40 Delta Troponin T -7.17 ABS# (0-10) L 03/10/22 13:40 NT-Pro-B Natriuret Pep 62316 pg/mL (0-125) H 03/10/22 13:40 Total Protein 6.1 g/dL (6.6-8.7) L 03/10/22 11:19 Albumin 3.7 g/dL (3.5-5.2) 03/10/22 11:19 Globulin 2.4 g/dL (1.3-4.6) 03/10/22 11:19 Urine Color Brown (Yellow) 03/10/22 12:36 Urine Appearance Hazy (CLEAR) A 03/10/22 12:36 Urine pH 6 (5-7) 03/10/22 12:36 Ur Specific [place] 1.020 (1.005-1.030) 03/10/22 12:36 Urine Protein 2+ (Negative) H 03/10/22 12:36 Urine Glucose (UA) Norm (Normal) 03/10/22 12:36 Urine Ketones 1+ (Negative) H 03/10/22 12:36 Urine Blood 3+ (Negative) H 03/10/22 12:36 Urine Nitrate Negative (Negative) 03/10/22 12:36 Urine Bilirubin Neg (Negative) 03/10/22 12:36 Urine Urobilinogen Norm mg/dL (Negative) 03/10/22 12:36 Ur Leukocyte Esterase Negative (Negative) 03/10/22 12:36 Urine RBC 0-4 /hpf (0-2) H 03/10/22 12:36 Urine WBC 0-4 /hpf (0-5) H 03/10/22 12:36 Ur Squamous Epith Cells 0-4 /hpf (0-5) H 03/10/22 12:36 Amorphous Sediment Not Reportable 03/10/22 12:36 Urine Bacteria 2+ /hpf (NONE) H 03/10/22 12:36 Hyaline Casts 0-4 /lpf H 03/10/22 12:36 Influenza Type A Ag negative (Negative) 03/10/22 18:19 Influenza Type B Ag negative (Negative) 03/10/22 18:19 SARS-CoV-2 Ag (Rapid) negative (Negative) 03/10/22 18:19 EKG Data EKG 1: EKG Data: 03/10/22 Interpretation: Sinus rhythm, 82 bpm, occasional PVCs noted. No ST segment elevation or depression seen. Discharge Plan Discharge Patient Disposition: Admitted As Inpatient Admit Provider: Gunnar Verdugo Clinical Impression: Hypoxemia, Pneumonia UTI (urinary tract infection) Qualifiers: Urinary tract infection type: acute cystitis Hematuria presence: with hematuria Qualified Code(s): N30.01 - Acute cystitis with hematuria Fall as cause of accidental injury at home as place of occurrence Qualifiers: Encounter type: initial encounter Qualified Code(s): W19.XXXA - Unspecified fall, initial encounter Condition: Stable Discharge Diet: Regular Discharge Activity: Increase activity as tolerated Coding Level of Care Code ED Automotive Repair Technician for Chg Fwd Exam Comprehensive Documented by User: Bob Christopher MD 03/10/22 20:33 HPI - Male Genitourinary General: Chief complaint: Urogenital-Male Stated complaint: fall, head injury Time Seen by Provider: 03/10/22 10:46 [facility] ED PFSH: Medical History BPH (benign prostatic hyperplasia) Carotid stenosis, bilateral Carotid stent occlusion COPD (chronic obstructive pulmonary disease) COPD (chronic obstructive pulmonary disease) Coronary artery disease Diabetes mellitus Diabetes mellitus Erectile dysfunction History of nonmelanoma skin cancer Hypertension Low testosterone in male Mitral regurgitation Peripheral arterial disease Surgical History History of aorto-femoral bypass History of coronary angioplasty with insertion of stent last PCI to mid LAD by Dr. Cervantes 10/26/16 History of inguinal hernia repair RIGHT Hx of appendectomy Hx of foot surgery RIGHT S/P carotid endarterectomy Family History Father , AT AGE 63 CAD (coronary artery disease) Mother , AT AGE 93 No problems noted. Social History Smoking and tobacco status: current every day smoker cigarettes Packs smoked per day: 0.5 Second hand smoke exposure: No Smoking risk assessment/counseling performed?: Yes Alcohol intake: former Former alcohol use details: occasional alcohol use in the past, denies any heavy alcohol use in the pas Desire information about alcohol rehabilitation?: No Desire information about substance/drug rehabilitation?: No Counseling given: No Adopted: No Caregiver/support person: No Household members: none Housing: House Marital status: service: Yes branch: [employer] Current occupational status: disabled Current occupational exposures/hazards: No History of recent travel: No Current gender identity: Male Course Vital Signs: Vital signs: Vital Signs Temperature 98.1 F 03/11/22 07:44 Pulse Rate 128 H 03/11/22 07:44 Respiratory Rate 22 H 03/11/22 07:44 Blood Pressure 157/68 03/11/22 07:44 Pulse Oximetry 85 L 03/11/22 07:44 Oxygen Delivery Me thod 03/11/22 07:44 Oxygen Flow Rate 10 03/11/22 07:44 [facility] - Male Medical Decision Making Patient presents here with cough he is febrile along with weakness his chest x-ray here shows a multifocal pneumonia did speak to hospitalist patient placed on antibiotics and will admit at this time. Lab Data 03/10/22 11:19 03/10/22 11:19 Radiology Impressions Cervical Spine CT 03/10/22 10:56 IMPRESSION: 1. No acute cervical spine fracture. 2. Multilevel facet joint arthritis and foraminal stenoses as above. 3. Severe degenerative disc disease at C5-6 with complete ankylosis of the LEFT facet joint. 4. Dense area of consolidation partially visualized in the LEFT upper lobe. On a prior recent CT from 09/04/2021 there was no mass identified. Differential includes interval development of a neoplasm versus pneumonia. Favor pneumonia. Chest radiograph and follow-up to resolution is recommended. Face CT 03/10/22 10:56 IMPRESSION: 1. No acute facial bone fractures. 2. No significant soft tissue hematoma or contusion. 3. Remote fracture RIGHT frontal bone. Head CT 03/10/22 10:56 IMPRESSION: 1. No acute intracranial hemorrhage or edema. 2. 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 Distribution suggests posttraumatic in etiology. 3. Remote fracture RIGHT frontal bone. 4. No acute skull fracture or hematoma. 5. Mild atrophy with moderate small vessel ischemic disease. Chest X-Ray 03/10/22 20:01 IMPRESSION: Multifocal pneumonia. Chest CTA 03/10/22 21:10 IMPRESSION: 1. No pulmonary embolus or aortic dissection. 2. Peripheral ground-glass opacities with some central opacities in the right upper lobe, right middle lobe and right lower lobe consistent with moderate to severe right upper lobe, moderate right middle lobe and mild right lower lobe COVID-19 pneumonia versus other pneumonia. 3. Dense airspace disease in the posterior segment left upper lobe with air bronchograms suggesting possible bacterial pneumonia such as pneumococcal or Klebsiella with some bulging fissures. 4. Moderate paraseptal emphysema. 5. Mild centrilobular emphysema. 6. Mild geographic ground-glass opacities in the anterior portion of the left upper lobe suggesting possible COVID-19 pneumonia versus other pneumonia. 7. Severe chronic calcific pancreatitis. Laboratory Results WBC 14.7 10^3/uL (4.0-10.0) H 03/10/22 11:19 RBC 4.16 10^6/uL (4.1-5.3) 03/10/22 11:19 Hgb 14.0 g/dL (11.7-16.6) 03/10/22 11:19 Hct 41.4 % (42.0-52.0) L 03/10/22 11:19 MCV 99.5 fl (80-94) H 03/10/22 11:19 MCH 33.7 pg (28.0-34.0) 03/10/22 11:19 MCHC 33.8 g/dL (30.0-36.0) 03/10/22 11:19 RDW 13.2 % (12.1-15.1) 03/10/22 11:19 Plt Count 119 10^3/cmm (130-400) L 03/10/22 11:19 MPV 12.1 fL (7.4-10.4) H 03/10/22 11:19 Neut % (Auto) 88.4 % 03/10/22 11:19 Lymph % (Auto) 3.3 % 03/10/22 11:19 [place] % (Auto) 7.9 % 03/10/22 11:19 Eos % (Auto) 0.0 % 03/10/22 11:19 Baso % (Auto) 0.1 % 03/10/22 11:19 Neut # (Auto) 13.02 10^3/uL (1.8-7.7) H 03/10/22 11:19 Lymph # (Auto) 0.5 10^3/uL (0.8-4.8) L 03/10/22 11:19 [place] # (Auto) 1.2 10^3/uL (0.2-0.9) H 03/10/22 11:19 Eos # (Auto) 0.0 10^3/uL (0.0-0.8) 03/10/22 11:19 Baso # (Auto) 0.0 10^3/uL (0.0-0.1) 03/10/22 11:19 Nucleated RBC % (auto) 0 % 03/10/22 11:19 Nucleated RBCs # 0.0 /100WBC 03/10/22 11:19 Sodium 132 mmol/L (136-145) L 03/10/22 11:19 Potassium 3.9 mmol/L (3.5-5.1) 03/10/22 11:19 Chloride 95 mmol/L (98-107) L 03/10/22 11:19 Carbon Dioxide 25 mmol/L (22-29) 03/10/22 11:19 Anion Gap 15.9 (5-19) 03/10/22 11:19 BUN 13 mg/dL (8-23) 03/10/22 11:19 Creatinine 1.1 mg/dL (0.7-1.2) 03/10/22 11:19 GFR Calculation Not Reportable 03/10/22 11:19 Glucose 127 mg/dL (65-115) H 03/10/22 11:19 Calculated Osmolality 276 mOsm/kg (285-295) L 03/10/22 11:19 Calcium 9.2 mg/dL (8.5-10.5) 03/10/22 11:19 Total Bilirubin 0.5 mg/dL (0.15-1.2) 03/10/22 11:19 AST 66 U/L (0-40) H 03/10/22 11:19 ALT 23 U/L (0-41) 03/10/22 11:19 Alkaline Phosphatase 67 U/L (40-130) 03/10/22 11:19 Troponin T Baseline 51 ng/L (0-15) H 03/10/22 11:19 Troponin T 120 Minute 43.83 ng/L (0-15) H 03/10/22 13:40 Delta Troponin T -7.17 ABS# (0-10) L 03/10/22 13:40 NT-Pro-B Natriuret Pep 40106 pg/mL (0-125) H 03/10/22 13:40 Total Protein 6.1 g/dL (6.6-8.7) L 03/10/22 11:19 Albumin 3.7 g/dL (3.5-5.2) 03/10/22 11:19 Globulin 2.4 g/dL (1.3-4.6) 03/10/22 11:19 Urine Color Brown (Yellow) 03/10/22 12:36 Urine Appearance Hazy (CLEAR) A 03/10/22 12:36 Urine pH 6 (5-7) 03/10/22 12:36 Ur Specific [place] 1.020 (1.005-1.030) 03/10/22 12:36 Urine Protein 2+ (Negative) H 03/10/22 12:36 Urine Glucose (UA) Norm (Normal) 03/10/22 12:36 Urine Ketones 1+ (Negative) H 03/10/22 12:36 Urine Blood 3+ (Negative) H 03/10/22 12:36 Urine Nitrate Negative (Negative) 03/10/22 12:36 Urine Bilirubin Neg (Negative) 03/10/22 12:36 Urine Urobilinogen Norm mg/dL (Negative) 03/10/22 12:36 Ur Leukocyte Esterase Negative (Negative) 03/10/22 12:36 Urine RBC 0-4 /hpf (0-2) H 03/10/22 12:36 Urine WBC 0-4 /hpf (0-5) H 03/10/22 12:36 Ur Squamous Epith Cells 0-4 /hpf (0-5) H 03/10/22 12:36 Amorphous Sediment Not Reportable 03/10/22 12:36 Urine Bacteria 2+ /hpf (NONE) H 03/10/22 12:36 Hyaline Casts 0-4 /lpf H 03/10/22 12:36 Influenza Type A Ag negative (Negative) 03/10/22 18:19 Influenza Type B Ag negative (Negative) 03/10/22 18:19 SARS-CoV-2 Ag (Rapid) negative (Negative) 03/10/22 18:19 Discharge Plan Discharge Patient Disposition: Admitted As Inpatient Admit Provider: Gunnar Verdugo Clinical Impression: Hypoxemia, Pneumonia UTI (urinary tract infection) Qualifiers: Urinary tract infection type: acute cystitis Hematuria presence: with hematuria Qualified Code(s): N30.01 - Acute cystitis with hematuria Fall as cause of accidental injury at home as place of occurrence Qualifiers: Encounter type: initial encounter Qualified Code(s): W19.XXXA - Unspecified fall, initial encounter Condition: Stable Discharge Diet: Regular Discharge Activity: Increase activity as tolerated Coding Level of Care Code ED Automotive Repair Technician for g Fwd Exam Comprehensive
[2022-03-10] MEDS: morphine 4 mg/mL SDV 1 mL IVP ×2 (11:15→13:37)
[2022-03-10] MEDS: ondansetron 2 mg/ML SDV 2 mL 4 MG IVP (11:16)
[2022-03-10 11:27] LABS: Basophils % 0.1 %; Hematocrit 41.4 % (42.0-52.0); Lymphocytes # 0.5 10^3/uL (0.8-4.8); Lymphocytes % 3.3 %; Mean Corpuscular HGB Conc 33.8 g/dL (30.0-36.0); Mean Corpuscular Hemoglobin 33.7 pg (28.0-34.0); Mean Corpuscular Volume 99.5 fl (80-94); Mean Platelet Volume 12.1 fL (7.4-10.4); Monocytes # 1.2 10^3/uL (0.2-0.9); Monocytes % 7.9 %; Neutrophils # 13.02 10^3/uL (1.8-7.7); Neutrophils % 88.4 %; Nucleated Red Blood Cells % 0 %; Platelet Count 119 10^3/cmm (130-400); Red Blood Count 4.16 10^6/uL (4.1-5.3); Red Cell Distribution Width 13.2 % (12.1-15.1); White Blood Count 14.7 10^3/uL (4.0-10.0)
[2022-03-10 11:48] LABS: Alanine Aminotransferase 23 U/L (0-41); Albumin Level 3.7 g/dL (3.5-5.2); Alkaline Phosphatase 67 U/L (40-130); Anion Gap 15.9 (5-19); Aspartate Amino Transferase 66 U/L (0-40); Blood Urea Nitrogen 13 mg/dL (8-23); Calcium 9.2 mg/dL (8.5-10.5); Carbon Dioxide 25 mmol/L (22-29); Chloride 95 mmol/L (98-107); Globulin 2.4 g/dL (1.3-4.6); Glucose 127 mg/dL (65-115); Osmolality Calculated 276 mOsm/kg (285-295); Potassium 3.9 mmol/L (3.5-5.1); Sodium 132 mmol/L (136-145); Total Bilirubin 0.5 mg/dL (0.15-1.2); Total Protein 6.1 g/dL (6.6-8.7)
[2022-03-10 11:54] LABS: Troponin(5th) Baseline 51 ng/L (0-15)
[2022-03-10 13:04] LABS: Add Urine Microscopic? YES; Bacteria Urine 2+ /hpf; Bilirubin Urine Neg (Negative); Blood Urine 3+ (Negative); Glucose Urine UA Norm (Normal); Ketones Urine 1+ (Negative); Leukocyte Esterase Urine Negative (Negative); Nitrate Urine Negative (Negative); Protein Urine 2+ (Negative); RBC Urine 0-4 /hpf (0-2); Squamous Epithelial Cell Urine 0-4 /hpf (0-5); Urine Appearance Hazy (CLEAR); Urine Color Brown (Yellow); Urobilinogen Urine Norm (Negative); WBC Urine 0-4 /hpf (0-5); pH Urine 6 (5-7)
[2022-03-10 13:05] LABS: Add Urine Culture? Yes; Hyaline Casts Urine 0-4 /lpf
--- NOTE | 2022-03-10 13:24 | ECG_ITS ---
[facility] Test Date: 2022-03-10 Pat Name: Jack June Department: Room: Gender: Male Federal Agent: : [id number] Requested By: Maynor Han Order Number: [id number] MD: Jovanny Armstrong M.D. Measurements Intervals [place] Rate: 95 P: 68 MD: 159 QRS: -89 QRSD: 145 T: 77 QT: 349 QTc: 439 Interpretive Statements SINUS RHYTHM POSSIBLE LEFT ATRIAL ENLARGEMENT [-0.1mV P-WAVE IN V1/V2] RIGHT BUNDLE BRANCH BLOCK [120+ ms QRS DURATION, UPRIGHT V1, 40+ ms S IN I/aVL/V4/V5/V6] LEFT ANTERIOR FASCICULAR BLOCK [QRS AXIS <= -45, QR IN I, RS IN II] Compared to ECG 03/10/2022 11:05:02 No significant changes Electronically Signed On 03-10-2022 16:18:54 [employer] by Jovanny Armstrong M.D. [email or web address]
[2022-03-10 14:14] LABS: Troponin 5 2HR 43.83 ng/L (0-15)
[2022-03-10] MEDS: sulfamethoxazole-trimeth DS 160-800 mg Tablet 1 TAB PO (15:17)
--- NOTE | 2022-03-10 16:56 | ECG_ITS ---
[facility] Test Date: 2022-03-10 Pat Name: Jack June Department: Room: Gender: Male Supervisor [employer]: : [id number] Requested By: Maynor Han Order Number: [id number] Friedman MD: Mathieu Tejeda M.D. Measurements Intervals [place] Rate: 113 P: 63 [place]: 162 QRS: 264 QRSD: 141 T: 69 QT: 336 QTc: 461 Interpretive Statements SINUS TACHYCARDIA WITH FREQUENT VENTRICULAR PREMATURE COMPLEXES LEFT ATRIAL ENLARGEMENT [-0.15mV P-WAVE IN V1/V2] RIGHT AXIS DEVIATION [QRS AXIS > 100] RIGHT BUNDLE BRANCH BLOCK [120+ ms QRS DURATION, UPRIGHT V1, 40+ ms S IN I/aVL/V4/V5/V6] Compared to ECG 03/10/2022 13:24:09 Ventricular premature complex(es) now present Right-axis deviation now present Sinus rhythm no longer present Left anterior fascicular block no longer present Electronically Signed On 03-11-2022 10:17:06 HUC by Mathieu Tejeda M.D. [email or web address]
[2022-03-10] MEDS: sodium chloride 0.9% 1,000 ML 999 ML IV (18:35)
[2022-03-10] MEDS: acetaminophen 325 mg Tablet 650 MG PO (18:35)
--- NOTE | 2022-03-10 20:01 | XRR_ITS ---
PROCEDURE INFORMATION: Exam: XR Chest Exam date and time: 03/10/2022 8:06 PM Age: 71 years old Clinical indication: Shortness of breath; Additional info: SOB TECHNIQUE: Imaging protocol: Radiologic exam of the chest. Views: 1 view. COMPARISON: CR XR chest 1V portable [id number] 12/14/2019 4:55 AM FINDINGS: Lungs: Scattered consolidations throughout both lungs. Pleural spaces: Unremarkable. No pleural effusion. No pneumothorax. Heart/Mediastinum: Unremarkable. No cardiomegaly. Bones/joints: Unremarkable. XR/XR chest 1V portable [id number] IMPRESSION: Multifocal pneumonia.
[2022-03-10 20:04] LABS: Influenza A by IFA negative (Negative); Influenza B by IFA negative (Negative); SARS Covid-2 Antigen negative (Negative)
--- NOTE | 2022-03-10 20:18 | P.HP_ITS ---
Providers/Chief Complaint Primary Care Provider: Roge Branch DO Chief Complaint: fall, head injury History of Present Illness Jack June is a 71 year old male with remote history of stroke, active smoker, known oxygen and COPD, lives alone, presented after sustaining a fall. Patient is stating that today he tried to get up from his couch, he went near the window and lost his balance and fell on the floor, he has been feeling weak for quite some time, he has not noticed chest pain, fever, nausea, vomiting, diarrhea. He has been feeling lethargic and fatigued. He smokes 1 pack/day, he has been smoking since his teenage life. He is denying recreational drugs, previous history of cancer. Patient is denying chest pain, syncopal events. He was seen by the ER nurse practitioner, there was plan to discharge him today however when case was presented to the ER physician decision was made to admit him because now he is requiring 5 L of oxygen, he has low-grade fever and significant leukocytosis Chest x-ray showing left-sided pneumonia When I evaluated the patient I diagnosed him with sepsis related to community-acquired pneumonia give him septic bolus blood cultures have been taken, lactic acid requested, patient is awake and alert Has multiple bruises, CT scan of head and face unremarkable, CT cervical spine u nremarkable it is showing dense consolidation left upper lobe In the ER he has received morphine, 1 L normal saline along azithromycin and Bactrim Review of Systems Const: Reports: chills, body aches and fatigue Eyes: Denies: change in vision ENMT: Denies: throat pain Card: Reports: lightheadedness; Denies: chest pain Resp: Reports: dyspnea GI: Denies: abdominal pain : Denies: flank pain or urinary dribbling Musc: Reports: back pain; Denies: neck pain Skin/Breast: Reports: rash and erythema Neuro: Denies: headache(s) Psych: Reports: anxiety Endo: Denies: polyuria Benjamin/Lymph: Denies: easy bruising All/Imm: Denies: urticaria Medications/Allergies Home Medications Medication Instructions Recorded Confirmed Last Taken Type metoprolol succinate 50 mg 50 mg PO DAILY #30 tabs 11/17/21 03/10/22 02/11/22 Rx tablet,extended release 24 hr magnesium hydroxide 400 mg/5 mL 60 ml PO DAILY PRN constipation 11/23/21 03/10/22 02/10/22 Rx oral suspension (Dietz Milk of #355 mL Magnesia) allopurinol 100 mg tablet 200 mg PO DAILY #180 tabs 12/28/21 03/10/22 02/10/22 Rx bupropion HCl 150 mg 24 hr tablet, 150 mg PO QAM #90 tabs 12/28/21 03/10/22 02/12/22 Rx extended release (Wellbutrin XL) clopidogrel 75 mg tablet 75 mg PO DAILY #90 tabs 12/28/21 03/10/22 02/08/22 Rx fluticasone 250 mcg-salmeterol 50 1 inh inhalation Q12H SOB #60 ea 12/28/21 03/10/22 02/10/22 Rx mcg/dose blistr powdr for inhalation (Advair Diskus) isosorbide mononitrate 30 mg 15 mg PO DAILY #45 tabs 12/28/21 03/10/22 02/11/22 Rx tablet,extended release 24 hr lisinopril 5 mg tablet 5 mg PO BID #180 tabs 12/28/21 03/10/22 02/11/22 Rx mometasone 0.1 % topical solution 1 applic topical DAILY #60 mL 12/28/21 03/10/22 Unknown Rx spironolactone 25 mg tablet 12.5 mg PO DAILY #45 tabs 12/28/21 03/10/22 02/11/22 Rx tamsulosin 0.4 mg capsule 0.4 mg PO DAILY #90 caps 12/28/21 03/10/22 02/11/22 Rx umeclidinium 62.5 mcg/actuation 1 inh inhalation DAILY #30 ea 12/28/21 03/10/22 02/10/22 Rx blister powder for inhalation (Incruse Ellipta) indomethacin 50 mg capsule 50 mg PO TID #21 caps 02/16/22 03/10/22 Unknown Rx prednisone 20 mg tablet 20 mg PO BID #10 tabs 02/16/22 03/10/22 Unknown Rx amlodipine 10 mg tablet 10 mg PO DAILY #30 tabs 22 03/10/22 Unknown Rx hydrocodone 10 mg-acetaminophen 1 tab PO QID 30 days #120 tabs 02/22/22 03/10/22 Unknown Rx 325 mg tablet atorvastatin 80 mg tablet See Rx Instructions .Route 03/10/22 03/10/22 Unknown Rx .COMPLEX #90 tabs sulfamethoxazole 800 1 tab PO BID 7 days #14 tabs 03/10/22 Unknown Rx mg-trimethoprim 160 mg tablet (Bactrim DS) trazodone 150 mg tablet See Rx Instructions .Route 03/10/22 03/10/22 Unknown Rx .COMPLEX #60 tabs Allergies Allergy/AdvReac Type Severity Reaction Status Date / Time No Known Allergies Allergy Verified 02/22/22 10:35 PFSH Acute PFSH: Medical History BPH (benign prostatic hyperplasia) Carotid stenosis, bilateral Carotid stent occlusion COPD (chronic obstructive pulmonary disease) COPD (chronic obstructive pulmonary disease) Coronary artery disease Diabetes mellitus Diabetes mellitus Erectile dysfunction History of nonmelanoma skin cancer Hypertension Low testosterone in male Mitral regurgitation Peripheral arterial disease Surgical History History of aorto-femoral bypass History of coronary angioplasty with insertion of stent last PCI to mid LAD by Dr. Cervantes 10/26/16 History of inguinal hernia repair RIGHT Hx of appendectomy Hx of foot surgery RIGHT S/P carotid endarterectomy Family History Father , AT AGE 63 CAD (coronary artery disease) Mother , AT AGE 93 No problems noted. Social History Smoking and tobacco status: current every day smoker cigarettes Packs smoked per day: 0.5 Second hand smoke exposure: No Smoking risk assessment/counseling performed?: Yes Alcohol intake: former Former alcohol use details: occasional alcohol use in the past, denies any heavy alcohol use in the pas Desire information about alcohol rehabilitation?: No Desire information about substance/drug rehabilitation?: No Counseling given: No Adopted: No Caregiver/support person: No Household members: none Housing: House Marital status: service: Yes branch: [employer] Current occupational status: disabled Current occupational exposures/hazards: No History of recent travel: No Current gender identity: Male Vitals/I&O/Wt Last Vital Signs Temp 99.8 F H 03/10/22 10:53 Pulse 93 03/10/22 12:45 Resp 16 03/10/22 13:37 BP 144/58 03/10/22 15:00 Pulse Ox 65 L 03/10/22 18:07 O2 Del Method 03/10/22 10:53 Weight last 48 hrs Weight 68.039 kg Physical Exam Narrative: Patient is laying supine, unkept appearance, not well groomed male Appears more than stated age Currently patient is requiring 5 L of oxygen Bilateral breath sound with rhonchi no wheeze Abdomen soft Lower extremity no edema Nonfocal neuro exam Awake and alert Pleasant during my evaluation No signs of meningoencephalitis Multiple petechiae bruises all over his face Urinary Catheter Management: Foreman: Cath Placed During This Visit: yes, but has since been removed by the nurse Reason for Continuing Indwelling Catheter: Does Not Meet Criteria Urinary Catheter Date of Insertion: 03/10/22 Urinary Catheter Time of Insertion: 13:00 Date Urinary Catheter Removed: 03/10/22 Time Urinary Catheter Discontinued: 16:00 Data 03/10/22 11:19 03/10/22 11:19 Micro: Microbiology 03/10/22 19:00 Blood Culture - Preliminary Blood SPECIMEN COLLECTED 03/10/22 19:06 Blood Culture - Preliminary Blood SPECIMEN COLLECTED A&P Assessment and plan (1) Sepsis: (2) Hypoxemia: (3) Pneumonia: (4) COPD (chronic obstructive pulmonary disease): (5) Fall as cause of accidental injury at home as place of occurrence: Qualifiers: Encounter type: initial encounter Qualified Code(s): W19.XXXA - Unspecified fall, initial encounter; Y92.009 - Unspecified place in unspecified non-institutional (private) residence as the place of occurrence of the external cause (6) Enlarged prostate: (7) External hemorrhoid: (8) DDD (degenerative disc disease), lumbar: (9) Nicotine dependence, cigarettes, with other nicotine-induced disorders: (10) Diabetic peripheral neuropathy associated with type 2 diabetes mellitus: Plan Acute hypoxia with underlying sepsis related to community-acquired pneumonia Started ceftriaxone and azithromycin Requested D-dimer which came back very high Requested CTA PE Left lung consolidation Patient is an active smoker DuoNeb treatment May benefit from prednisone treatment, trend CRP Check procalcitonin Sputum culture, blood culture requested Septic bolus requested in the ER along lactic acid Sepsis criteria met with tachypnea, leukocytosis, tachycardia, Acute COPD exacerbation due to pneumonia Patient does not use oxygen at home Unkept appearance, lives alone at home he lives in [facility] Patient is full code Consistent carb diet DVT prophylaxis Lovenox COVID and influenza antigen negative, Attestations Medical Necessity Statement*: Anticipating more than 2 midnights for management of sepsis, pneumonia Time Spent in Patient Care: 40 Coding Level of Care Code Acute Endoscopy Tech for [facility] Fwd Diagnoses Sepsis A41.9 Hypoxemia R09.02 Pneumonia J18.9 COPD (chronic obstructive pulmonary disease) J44.9 Fall as cause of accidental injury at home as place of occurrence W19.XXXA; Y92.009 Encounter type: initial encounter Enlarged prostate N40.0 External hemorrhoid K64.4 DDD (degenerative disc disease), lumbar M51.36 Nicotine dependence, cigarettes, with other nicotine-induced disorders F17.218 Diabetic peripheral neuropathy associated with type 2 diabetes mellitus E11.42
--- NOTE | 2022-03-10 20:37 | PC.NURSE ---
kapil ceja took report
[2022-03-10 20:40] LABS: D Dimer 3.66 ug/mIFEU (0-0.59)
--- NOTE | 2022-03-10 21:10 | CTR_ITS ---
PROCEDURE INFORMATION: Exam: CTA Chest With Contrast Exam date and time: 03/10/2022 9:21 PM Age: 71 years old Clinical indication: Abnormal findings; Abnormal diagnostic tests and lung mass or nodule; Elevated d-dimer; Not specified; Shortness of breath; Patient HX: C/O SOB with left lung mass on cxr. Elevated d dimer. ; Additional info: Left lung mass vs pna TECHNIQUE: Imaging protocol: Computed tomographic angiography of the chest with contrast. 3D rendering (Not supervised by radiologist): MIP and/or 3D reconstructed images were created by the technologist. Radiation optimization: All CT scans at this facility use at least one of these dose optimization techniques: automated exposure control; mA and/or kV adjustment per patient size (includes targeted exams where dose is matched to clinical indication); or iterative reconstruction. Contrast material: OMNI 350; Contrast volume: 67 ml; Contrast route: INTRAVENOUS (IV); COMPARISON: CT angio chest w abd pel w con 12/14/2019 5:58 AM RADIATION DOSE METRICS: Total DLP (mGy-cm): 285.02 FINDINGS: Pulmonary arteries: No pulmonary embolus or aortic dissection. Aorta: Calcification of the thoracic aorta and/or great vessels consistent with atherosclerotic vessel disease. Lungs: Peripheral ground-glass opacities with some central opacities in the right upper lobe, right middle lobe and right lower lobe consistent with moderate to severe right upper lobe, moderate right middle lobe and mild right lower lobe COVID-19 pneumonia versus other pneumonia. Dense airspace disease in the posterior segment left upper lobe with air bronchograms suggesting possible bacterial pneumonia such as pneumococcal or Klebsiella with some bulging fissures. Moderate paraseptal emphysema. Mild centrilobular emphysema. Mild geographic ground-glass opacities in the anterior portion of the left upper lobe suggesting possible COVID-19 pneumonia versus other pneumonia. Pleural spaces: Unremarkable. No pneumothorax. No pleural effusion. Heart: Unremarkable. No cardiomegaly. No pericardial effusion. Coronary arteries: Severe calcified coronary artery disease. Lymph nodes: Calcified bilateral hilar nodes and moderate partially calcified mediastinal nodes with calcified lung granulomas consistent with old granulomatous disease. Pancreas: Severe chronic calcific pancreatitis. Bones/joints: Multilevel moderate to severe degenerative disc disease and spondylosis with several areas of significant Modic type 3 sclerotic endplate degenerative change. Soft tissues: Unremarkable. CT/CT angio chest PE protcl [id number] IMPRESSION: 1. No pulmonary embolus or aortic dissection. 2. Peripheral ground-glass opacities with some central opacities in the right upper lobe, right middle lobe and right lower lobe consistent with moderate to severe right upper lobe, moderate right middle lobe and mild right lower lobe COVID-19 pneumonia versus other pneumonia. 3. Dense airspace disease in the posterior segment left upper lobe with air bronchograms suggesting possible bacterial pneumonia such as pneumococcal or Klebsiella with some bulging fissures. 4. Moderate paraseptal emphysema. 5. Mild centrilobular emphysema. 6. Mild geographic ground-glass opacities in the anterior portion of the left upper lobe suggesting possible COVID-19 pneumonia versus other pneumonia. 7. Severe chronic calcific pancreatitis.
[2022-03-10 21:19] LABS: NT Pro B Type Natriuretic Pept 13209 pg/mL (0-125)
[2022-03-10 21:20] LABS: Procalcitonin 4.45 ng/mL (0-0.5)
[2022-03-10] MEDS: iohexol 350 mg/mL 500 mL Btl (per mL) IV (21:31)
[2022-03-10] MEDS: cefTRIAXone 1,000 MG in sodium chloride 0.9% (plus) 50 ML 100 MG IV (22:10)
[2022-03-10] MEDS: sodium chloride 0.9% 2,041.17 ML 2000 ML IV (22:11)
--- NOTE | 2022-03-10 22:23 | PC.NURSE ---
During assessment this nurse noted that the patient was having increased difficulty breathing using accessory muscles w/O2 sat 84% on 4 l/m via n/c. O2 titrated to 6 l/m via n/c to maintain sat at 89-90%. RT notified of pt change in condition.
[2022-03-10 22:53] LABS: Lactate (Lactic Acid level) 1.9 mmol/L (0.5-2.2)
[2022-03-10] MEDS: enoxaparin 40 mg/0.4 mL Syringe SUBCUT (23:28)
[2022-03-10] MEDS: azithromycin 500 MG in sodium chloride 0.9% 250 ML 250 MG IV (23:28)
[2022-03-10] MEDS: acetaminophen 500 mg Tablet PO (23:42)
[2022-03-10] MEDS: ipratropium-albuterol 3 mL Neb INHALATION (23:43)
[2022-03-11] VITALS (11 sets, daily range): BP systolic 129–157; BP diastolic 66–76; PULSE 75–128; RESP 15–22; TEMP 36.5–37.6; O2SAT 85–97
[2022-03-11] MEDS: morphine IR 15 mg Tablet PO ×2 (00:27→06:34)
[2022-03-11] MEDS: sodium chloride 0.9% 1,000 ML 75 ML IV (01:07)
[2022-03-11 01:34] LABS: Adenovirus Not Detected (NOT DETECT); Chlamydia Pneumoniae Not Detected (NOT DETECT); Coronavirus 229E,HKU1,NL63,OC4 Not Detected (NOT DETECT); Human Metapneumovirus Not Detected (NOT DETECT); Human Rhinovirus/Enterovirus Not Detected (NOT DETECT); Influenza A Not Detected (NOT DETECT); Influenza A H1 Not Detected (NOT DETECT); Influenza A H1-2009 Not Detected (NOT DETECT); Influenza A H3 Not Detected (NOT DETECT); Influenza B Not Detected (NOT DETECT); Mycoplasma Pneumoniae Not Detected (NOT DETECT); Parainfluenza Virus Type 1 Not Detected (NOT DETECT); Parainfluenza Virus Type 2 Not Detected (NOT DETECT); Parainfluenza Virus Type 3 Not Detected (NOT DETECT); Parainfluenza Virus Type 4 Not Detected (NOT DETECT); Respiratory Syncytial Virus A Not Detected (NOT DETECT); Respiratory Syncytial Virus B Not Detected (NOT DETECT); SARS-COV-2 Not Detected (NOT DETECT)
[2022-03-11 03:50] LABS: Hematocrit 38.5 % (42.0-52.0); Hemoglobin 12.6 g/dL (11.7-16.6); Lymphocytes # 0.4 10^3/uL (0.8-4.8); Lymphocytes % 3.5 %; Mean Corpuscular HGB Conc 32.7 g/dL (30.0-36.0); Mean Corpuscular Volume 100.8 fl (80-94); Mean Platelet Volume 12.2 fL (7.4-10.4); Monocytes # 0.4 10^3/uL (0.2-0.9); Monocytes % 3.5 %; Neutrophils # 9.16 10^3/uL (1.8-7.7); Neutrophils % 92.7 %; Nucleated Red Blood Cells % 0 %; Platelet Count 97 10^3/cmm (130-400); Red Blood Count 3.82 10^6/uL (4.1-5.3); Red Cell Distribution Width 13.4 % (12.1-15.1); White Blood Count 9.9 10^3/uL (4.0-10.0)
[2022-03-11 04:11] LABS: Anion Gap 10.9 (5-19); Blood Urea Nitrogen 18 mg/dL (8-23); C Reactive Protein 209.2 mg/L (0.0-4.9); Calcium 7.7 mg/dL (8.5-10.5); Carbon Dioxide 23 mmol/L (22-29); Chloride 102 mmol/L (98-107); Glucose 106 mg/dL (65-115); Magnesium 1.5 mg/dL (1.7-2.3); Osmolality Calculated 276 mOsm/kg (285-295); Phosphorus 2.8 mg/dL (2.5-4.5); Potassium 3.9 mmol/L (3.5-5.1); Sodium 132 mmol/L (136-145)
[2022-03-11] MEDS: metoprolol succinate ER (24 HR) 25 mg Tablet PO (08:15)
[2022-03-11] MEDS: azithromycin 250 mg Tablet 500 MG PO (08:15)
[2022-03-11] MEDS: sennosides-docusate Tablet 1 TAB PO (08:16)
[2022-03-11] MEDS: clopidogrel 75 mg Tablet PO (08:16)
[2022-03-11] MEDS: lisinopril 10 mg Tablet PO (08:16)
--- NOTE | 2022-03-11 09:31 | P.PN_ITS ---
Subjective Subjective: Patient endorses shortness of breath and fatigue. He was admitted overnight for sepsis. Sister is in the room and given an update. He denies fevers, chills, nausea or emesis. Medications: Reviewed: Yes Vitals/I&O/Wt Last Vital Signs Temp 98.1 F 03/11/22 07:44 Pulse 128 H 03/11/22 07:44 Resp 22 H 03/11/22 07:44 BP 157/68 03/11/22 07:44 Pulse Ox 85 L 03/11/22 07:44 O2 Del Method 03/11/22 07:44 O2 Flow Rate 10 03/11/22 07:44 03/10/22 03/11/22 03/11/22 22:59 06:59 14:59 Intake Total 1000 / 1000 2341.17 / 3341.17 978 / 978 Balance 1000 / 1000 2341.17 / 3341.17 978 / 978 Weight last 48 hrs Weight 68.039 kg Physical Exam Narrative: General: Patient is awake. Appears acutely ill. Frail-appearing. Head: Normocephalic. Atraumatic. EOM intact. Neck: No JVD. Cardiovascular: Regular rhythm. Tachycardic.. No gallops. No murmurs. No peripheral edema. Decreased capillary refill. Lungs: He has rhonchi in his left lung. No wheezing. Skin: No jaundice. No rashes. Abdomen: Normal bowel sounds, abdomen soft and nontender. Genito Urinary: Genital exam not performed since complaints not related. Rectal: Rectal exam not performed since no symptoms indicated blood loss. Extremities: No cyanosis or clubbing. Musculoskeletal: No obvious joint deformity. Neurological: Moves all 4 extremities. No myoclonus. Urinary Catheter Management: Foreman: Cath Placed During This Visit: yes, but has since been removed by the nurse Reason for Continuing Indwelling Catheter: Acute Urinary Retention or Obstruction Urinary Catheter Date of Insertion: 03/10/22 Urinary Catheter Time of Insertion: 23:36 Date Urinary Catheter Removed: 03/10/22 Time Urinary Catheter Discontinued: 16:00 Data 03/11/22 03:16 03/11/22 03:16 Micro: Microbiology 03/10/22 23:20 Legionella Urinary Antigen - Final Urine Catheterized 03/10/22 19:00 Blood Culture - Preliminary Blood SPECIMEN COLLECTED 03/10/22 19:06 Blood Culture - Preliminary Blood SPECIMEN COLLECTED A&P Assessment and plan (1) Sepsis: Source: Pneumonia SIRS criteria:Leukocytosis, tachycardia End organ damage: Respiratory failure Blood cultures in process Legionella in process Status post IV fluid resuscitation, no additional fluids due to respiratory failure Continue ceftriaxone Continue azithromycin Telemetry with continuous pulse oximetry (2) Pneumonia: Left-sided Imaging reviewed Abx as above (3) Hypoxemia: Acute hypoxic respiratory failure, worsening Currently on 15 L, denies prior home oxygen needs Consider diuresis if hypoxia worsens No additional fluids Treat underlying pneumonia (4) COPD (chronic obstructive pulmonary disease): Start Solu-Medrol Continue DuoNebs Antibiotics as above (5) Nicotine dependence, cigarettes, with other nicotine-induced disorders: Would benefit from cessation (6) Hypertension: Associated with tachycardia Continue metoprolol Qualifiers: Hypertension type: primary hypertension Qualified Code(s): I10 - Essential (primary) hypertension (7) Coronary artery disease: Continue Plavix Qualifiers: Coronary Disease-Associated Artery/Lesion type: [place] artery [place] vs. transplanted heart: [place] heart Associated angina: without angina Qualified Code(s): I25.10 - Atherosclerotic heart disease of [place] coronary artery without angina pectoris (8) Diabetic peripheral neuropathy associated with type 2 diabetes mellitus: SSI Plan DVT ppx: Lovenox Code status: Full Code Attestations Medical Necessity Statement*: Patient requires ongoing follow-up, respiratory support, IV antibiotics, and supportive care with expected hospitalization to cross 2 midnights Coding Level of Care Code Acute Fire Support Man for [facility] Fw Diagnoses Sepsis A41.9 Pneumonia J18.9 Hypoxemia R09.02 COPD (chronic obstructive pulmonary disease) J44.9 Nicotine dependence, cigarettes, with other nicotine-induced disorders F17.218 Hypertension I10 Hypertension type: primary hypertension Coronary artery disease I25.10 Coronary Disease-Associated Artery/Lesion type: [place] artery [place] vs. transplanted heart: [place] heart Associated angina: without angina Diabetic peripheral neuropathy associated with type 2 diabetes mellitus E11.42
--- NOTE | 2022-03-11 10:17 | PC.CHAP ---
Pastoral Care Encounter/Spiritual Assessment Type of Contact [] Declined central control room operator visit [] Patient/Family/Request visit [] Outpatient visit [] Follow-up visit [] Physician referral [] Code/Alert [x] Routine visit [] Staff referral [] Actively dying [] Patient sleeping [] Family support [] [] Out of room [] Palliative care [] [x] Receiving care in room [] Pre-surgical visit [] Trauma [x] Long length of stay [] ICU visit [] Other: Relational/Emotional Strength [] Patient feels connected with others/family/visitors/staff [x] Distress [] Loneliness/isolation [] Abandonment Spirituality of Patient [x] Person of Giselle [] Attends Anglican of their Giselle [x] Believes in Prayer [] Reads Bible or Tenriism materials [] There are Spiritual issues to be addressed Director Of Clinical Trials Interventions [x] Prayer [x] Active listening [x] Non-anxious presence [x] Spiritual/emotional support [] Crisis/trauma care [x] Spiritual counseling [] Bereavement support [] Provided bereavement packet [] Provided Bible/devotional materials [] Provided toy/stuffed animal, coloring book to patient or family member [] Provided Communion [] Anointing/[place] [] Salvation [] Completed spiritual assessment [] Other: Impact on Illness or Injury [] Angry [x] Fearful [] Anxious [] Often cries [] Exhaustion [x] Unable to work [] Unable to attend faith [] Unable to walk/stand [] Unable to read [] Unable to drive [] Unable to eat/drink [] Unable to sleep [] Unable to be with family [] Patient intubated [] Other: Summary Fell has mulpal head woounds negtive resoons well need some recovery time before he can go home Time spent with patient 10 mins
[2022-03-11] MEDS: ipratropium-albuterol 3 mL Neb INHALATION (10:42)
[2022-03-11 11:08] LABS: Glucose Point of Care 148 mg/dL (70-110)
[2022-03-11] MEDS: HYDROcodone-acetaminophen 10-325 mg Tablet 1 TAB PO ×2 (12:07→18:54)
[2022-03-11 17:30] LABS: Glucose Point of Care 220 mg/dL (70-110)
[2022-03-11] MEDS: cefTRIAXone 1,000 MG in sodium chloride 0.9% (plus) 50 ML 100 MG IV (20:54)
[2022-03-11] MEDS: enoxaparin 40 mg/0.4 mL Syringe SUBCUT (20:55)
[2022-03-11 20:59] LABS: Glucose Point of Care 271 mg/dL (70-110)
[2022-03-12] VITALS (9 sets, daily range): BP systolic 142–179; BP diastolic 71–82; PULSE 66–126; RESP 15–22; TEMP 36.5–36.9; O2SAT 92–99
[2022-03-12] MEDS: HYDROcodone-acetaminophen 10-325 mg Tablet 1 TAB PO ×4 (00:41→19:33)
[2022-03-12 01:04] LABS: Glucose Point of Care 137 mg/dL (70-110)
[2022-03-12 04:02] LABS: Hematocrit 41.7 % (42.0-52.0); Hemoglobin 13.9 g/dL (11.7-16.6); Lymphocytes # 0.2 10^3/uL (0.8-4.8); Lymphocytes % 2.4 %; Mean Corpuscular HGB Conc 33.3 g/dL (30.0-36.0); Mean Corpuscular Hemoglobin 33.2 pg (28.0-34.0); Mean Corpuscular Volume 99.5 fl (80-94); Mean Platelet Volume 12.7 fL (7.4-10.4); Monocytes # 0.5 10^3/uL (0.2-0.9); Monocytes % 5.9 %; Neutrophils # 7.38 10^3/uL (1.8-7.7); Neutrophils % 91.3 %; Nucleated Red Blood Cells % 0 %; Platelet Count 115 10^3/cmm (130-400); Red Blood Count 4.19 10^6/uL (4.1-5.3); Red Cell Distribution Width 13.6 % (12.1-15.1); White Blood Count 8.1 10^3/uL (4.0-10.0)
[2022-03-12 04:29] LABS: Albumin Level 2.8 g/dL (3.5-5.2); Anion Gap 13.6 (5-19); Blood Urea Nitrogen 23 mg/dL (8-23); Carbon Dioxide 23 mmol/L (22-29); Chloride 101 mmol/L (98-107); Glucose 131 mg/dL (65-115); Phosphorus 2.7 mg/dL (2.5-4.5); Potassium 4.6 mmol/L (3.5-5.1); Sodium 133 mmol/L (136-145)
[2022-03-12 07:05] LABS: Glucose Point of Care 132 mg/dL (70-110)
[2022-03-12] MEDS: azithromycin 250 mg Tablet 500 MG PO (08:14)
[2022-03-12] MEDS: metoprolol succinate ER (24 HR) 25 mg Tablet PO (08:15)
[2022-03-12] MEDS: sennosides-docusate Tablet 1 TAB PO (08:15)
[2022-03-12] MEDS: clopidogrel 75 mg Tablet PO (08:15)
[2022-03-12] MEDS: lisinopril 10 mg Tablet PO (08:15)
--- NOTE | 2022-03-12 08:27 | P.PN_ITS ---
Subjective Subjective: Patient endorses a productive cough. Endorses shortness of breath. States he feels terrible. Reports very poor oral intake. Denies abdominal pain. Denies focal neurological deficit. Medications: Reviewed: Yes Vitals/I&O/Wt Last Vital Signs Temp 98.4 F 03/12/22 07:31 Pulse 101 H 03/12/22 07:31 Resp 15 03/12/22 07:31 BP 166/82 03/12/22 07:31 Pulse Ox 94 03/12/22 07:31 O2 Del Method 03/12/22 07:31 O2 Flow Rate 6 03/11/22 20:55 03/11/22 03/12/22 03/12/22 22:59 06:59 14:59 Intake Total 290 / 1508 Output Total 550 / 550 550 / 1100 Balance -260 / 958 -550 / 408 Weight last 48 hrs Weight 68.039 kg Physical Exam Narrative: General: Patient is awake. Appears acutely ill. Frail-appearing. Head: Normocephalic. Atraumatic. EOMI. Neck: No JVD. Cardiovascular: Regular rhythm. No gallops. No murmurs. No peripheral edema. Lungs: Rhonchi in his left lung. No wheezing. Skin: No jaundice. No rashes. Abdomen: Normal bowel sounds, abdomen soft and nontender. Genito Urinary: Genital exam not performed since complaints not related. Rectal: Rectal exam not performed since no symptoms indicated blood loss. Extremities: No cyanosis or clubbing. Musculoskeletal: No obvious joint deformity. Neurological: Moves all 4 extremities. No myoclonus. Urinary Catheter Management: Foreman: Cath Placed During This Visit: yes, but has since been removed by the nurse Reason for Continuing Indwelling Catheter: Acute Urinary Retention or Obstruction Urinary Catheter Date of Insertion: 03/10/22 Urinary Catheter Time of Insertion: 23:36 Date Urinary Catheter Removed: 03/10/22 Time Urinary Catheter Discontinued: 16:00 Data 03/12/22 03:24 03/12/22 03:24 Micro: Microbiology 03/11/22 14:19 Gram Stain - Final Sputum - Expectorated Sputum 03/10/22 19:00 Blood Culture - Preliminary Blood NEGATIVE TO DATE 03/10/22 19:06 Blood Culture - Preliminary Blood NEGATIVE TO DATE 03/10/22 22:32 MRSA Culture - Final Nose 03/10/22 12:36 Urine Culture - Preliminary Urine,Clean Catch 03/10/22 23:20 Bacterial Antigens - Final Urine,Voided A&P Assessment and plan (1) Sepsis: Source: Pneumonia Blood cultures are NGTD Legionella in process Continue ceftriaxone Continue azithromycin Telemetry with continuous pulse oximetry (2) Pneumonia: Left-sided CAP Abx as above (3) Hypoxemia: Acute hypoxic respiratory failure, improving Treat underlying pneumonia (4) COPD (chronic obstructive pulmonary disease): Continue Solu-Medrol Continue DuoNebs Antibiotics as above (5) Nicotine dependence, cigarettes, with other nicotine-induced disorders: Would benefit from cessation (6) Hypertension: Continue metoprolol Qualifiers: Hypertension type: primary hypertension Qualified Code(s): I10 - Essential (primary) hypertension (7) Coronary artery disease: Continue Plavix Qualifiers: Coronary Disease-Associated Artery/Lesion type: [place] artery [place] vs. 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 transplanted heart: [place] heart Associated angina: without angina Diabetic peripheral neuropathy associated with type 2 diabetes mellitus E11.42
[2022-03-12 11:24] LABS: Glucose Point of Care 195 mg/dL (70-110)
[2022-03-12] MEDS: insulin lispro 100 unit/1 mL SUBCUT (11:40)
[2022-03-12] MEDS: magnesium hydroxide 30 mL UDC PO (14:05)
[2022-03-12] MEDS: morphine IR 15 mg Tablet PO (16:57)
[2022-03-12 16:59] LABS: Glucose Point of Care 125 mg/dL (70-110)
[2022-03-12] MEDS: enoxaparin 40 mg/0.4 mL Syringe SUBCUT (19:36)
[2022-03-12 21:05] LABS: Glucose Point of Care 156 mg/dL (70-110)
[2022-03-12] MEDS: trazodone 150 mg Tablet 300 MG PO (21:22)
[2022-03-12] MEDS: cefTRIAXone 1,000 MG in sodium chloride 0.9% (plus) 50 ML 100 MG IV (21:22)
[2022-03-13] VITALS (11 sets, daily range): BP systolic 137–167; BP diastolic 61–75; PULSE 59–111; RESP 17–22; TEMP 36.5–37; O2SAT 91–97
--- NOTE | 2022-03-13 01:00 | ECG_ITS ---
[facility] Test Date: 2022-03-13 Pat Name: Jack June Department: Room: 251 Gender: Male Cross Country Coach: : 1950 Requested By: Shirlene Jovel Order Number: [id number] Elder MD: Jovanny Armstrong M.D. Measurements Intervals [place] Rate: 81 P: 46 SD: 150 QRS: -75 QRSD: 134 T: 57 QT: 380 QTc: 441 Interpretive Statements SINUS RHYTHM WITH FREQUENT VENTRICULAR PREMATURE COMPLEXES IN A BIGEMINAL PATTERN POSSIBLE LEFT ATRIAL ENLARGEMENT [-0.1mV P-WAVE IN V1/V2] RIGHT BUNDLE BRANCH BLOCK [120+ ms QRS DURATION, UPRIGHT V1, 40+ ms S IN I/aVL/V4/V5/V6] LEFT ANTERIOR FASCICULAR BLOCK [QRS AXIS <= -45, QR IN I, RS IN II] INTERPRETATION BASED ON A DEFAULT AGE OF 40 YEARS Compared to ECG 03/10/2022 17:56:22 Left anterior fascicular block now present Sinus tachycardia no longer present Right-axis deviation no longer present Electronically Signed On 03-13-2022 16:45:30 [employer]ONE SUPER[employer] by Jovanny Armstrong M.D. [id number]
[2022-03-13 04:58] LABS: Basophils % 0.2 %; Hematocrit 36.9 % (42.0-52.0); Hemoglobin 12.1 g/dL (11.7-16.6); Lymphocytes # 0.2 10^3/uL (0.8-4.8); Lymphocytes % 3.5 %; Mean Corpuscular HGB Conc 32.8 g/dL (30.0-36.0); Mean Corpuscular Hemoglobin 32.8 pg (28.0-34.0); Mean Platelet Volume 12.7 fL (7.4-10.4); Monocytes # 0.5 10^3/uL (0.2-0.9); Monocytes % 7.6 %; Neutrophils # 5.32 10^3/uL (1.8-7.7); Neutrophils % 88.4 %; Nucleated Red Blood Cells % 0 %; Platelet Count 115 10^3/cmm (130-400); Red Blood Count 3.69 10^6/uL (4.1-5.3); Red Cell Distribution Width 13.4 % (12.1-15.1)
[2022-03-13 05:22] LABS: Albumin Level 2.4 g/dL (3.5-5.2); Anion Gap 12.4 (5-19); Blood Urea Nitrogen 25 mg/dL (8-23); Calcium 8.9 mg/dL (8.5-10.5); Carbon Dioxide 25 mmol/L (22-29); Chloride 104 mmol/L (98-107); Glucose 110 mg/dL (65-115); Phosphorus 2.2 mg/dL (2.5-4.5); Potassium 4.4 mmol/L (3.5-5.1); Sodium 137 mmol/L (136-145)
[2022-03-13 06:29] LABS: Glucose Point of Care 143 mg/dL (70-110)
--- NOTE | 2022-03-13 08:40 | P.PN_ITS ---
Subjective Subjective: Patient reports cough. Endorses generalized malaise and fatigue. Reports overall he feels mildly better than when he came in. Still felt short of breath. Denies nausea, emesis or abdominal pain Medications: Reviewed: Yes Vitals/I&O/Wt Last Vital Signs Temp 97.8 F 03/13/22 07:41 Pulse 73 03/13/22 07:41 Resp 18 03/13/22 07:41 BP 145/72 03/13/22 07:41 Pulse Ox 97 03/13/22 07:41 O2 Del Method 03/13/22 07:41 O2 Flow Rate 4 03/13/22 07:21 03/12/22 03/13/22 03/13/22 22:59 06:59 14:59 Intake Total 550 / 910 180 / 1090 Output Total 500 / 500 Balance 550 / 910 -320 / 590 Physical Exam Narrative: General: Patient is awake. Ill-appearing. Head: Normocephalic. Atraumatic. EOMI. Neck: No JVD. Cardiovascular: Regular rhythm. No gallops. No murmurs. No peripheral edema. Lungs: Rhonchi in left lung. No wheezing. No rales. On nasal cannula support. Skin: No jaundice. No rashes. Multiple bruises. Abdomen: Normal bowel sounds, abdomen soft and nontender. Genito Urinary: Genital exam not performed since complaints not related. Rectal: Rectal exam not performed since no symptoms indicated blood loss. Extremities: No cyanosis or clubbing. Musculoskeletal: No obvious joint deformity. Neurological: Moves all 4 extremities. No myoclonus. Urinary Catheter Management: Foreman: Cath Placed During This Visit: yes, but has since been removed by the nurse Reason for Continuing Indwelling Catheter: Acute Urinary Retention or Obstruction Urinary Catheter Date of Insertion: 03/10/22 Urinary Catheter Time of Insertion: 23:36 Date Urinary Catheter Removed: 03/10/22 Time Urinary Catheter Discontinued: 16:00 Data 03/13/22 04:00 03/13/22 04:00 Micro: Microbiology 03/11/22 14:19 Gram Stain - Final Sputum - Expectorated Sputum Sputum Culture - Preliminary Gram Negative Rods 03/10/22 12:36 Urine Culture - Final Urine,Clean Catch A&P Assessment and plan (1) Sepsis: Source: Pneumonia Blood cultures are NGTD Legionella negative Sputum culture with gram-negative rods Continue ceftriaxone Continue azithromycin Telemetry with continuous pulse oximetry (2) Pneumonia: Left-sided community-acquired pneumonia Abx as above (3) Hypoxemia: Acute hypoxic respiratory failure Treat underlying pneumonia and COPD Continuous pulse oximetry (4) Debility: Debility and physical deconditioning Treat underlying sepsis Physical therapy consultation (5) COPD (chronic obstructive pulmonary disease): Discontinue Solu-Medrol Start prednisone Continue DuoNebs Antibiotics as above (6) Nicotine dependence, cigarettes, with other nicotine-induced disorders: Would benefit from cessation (7) Hypertension: Continue metoprolol Qualifiers: Hypertension type: primary hypertension Qualified Code(s): I10 - Essential (primary) hypertension (8) Coronary artery disease: Continue Plavix Qualifiers: Coronary Disease-Associated Artery/Lesion type: [place] artery [place] vs. transplanted heart: [place] heart Associated angina: without angina Qualified Code(s): I25.10 - Atherosclerotic heart disease of [place] coronary artery without angina pectoris (9) Diabetic peripheral neuropathy associated with type 2 diabetes mellitus: SSI Plan DVT ppx: Lovenox Code status: Full Code Attestations Medical Necessity Statement*: Patient requires ongoing hospitalization for respiratory support, IV antibiotics, breathing treatments and supportive care. 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 transplanted heart: [place] heart Associated angina: without angina Diabetic peripheral neuropathy associated with type 2 diabetes mellitus E11.42
[2022-03-13] MEDS: azithromycin 250 mg Tablet 500 MG PO (08:45)
[2022-03-13] MEDS: insulin lispro 100 unit/1 mL SUBCUT ×3 (08:45→17:09)
[2022-03-13] MEDS: HYDROcodone-acetaminophen 10-325 mg Tablet 1 TAB PO ×3 (08:46→19:47)
[2022-03-13] MEDS: sennosides-docusate Tablet 1 TAB PO (08:46)
[2022-03-13] MEDS: clopidogrel 75 mg Tablet PO (08:46)
[2022-03-13] MEDS: lisinopril 10 mg Tablet PO (08:46)
[2022-03-13] MEDS: metoprolol succinate ER (24 HR) 25 mg Tablet PO (08:46)
[2022-03-13] MEDS: ipratropium-albuterol 3 mL Neb INHALATION (08:51)
--- NOTE | 2022-03-13 09:33 | PC.SOCIAL ---
IMM update IMM updated with patient. Verbalized an understanding. Copy Pg 2 provided. Initialled, dated, timed, and placed in chart.
[2022-03-13 11:13] LABS: Glucose Point of Care 201 mg/dL (70-110)
[2022-03-13] MEDS: morphine IR 15 mg Tablet PO (12:35)
[2022-03-13 16:44] LABS: Glucose Point of Care 209 mg/dL (70-110)
[2022-03-13] MEDS: enoxaparin 40 mg/0.4 mL Syringe SUBCUT (19:48)
[2022-03-13] MEDS: cefTRIAXone 1,000 MG in sodium chloride 0.9% (plus) 50 ML 100 MG IV (19:48)
[2022-03-13 21:25] LABS: Glucose Point of Care 136 mg/dL (70-110)
[2022-03-13] MEDS: trazodone 150 mg Tablet 300 MG PO (21:47)
[2022-03-14] VITALS (11 sets, daily range): BP systolic 158–196; BP diastolic 65–81; PULSE 66–108; RESP 17–21; TEMP 36.6–37.3; O2SAT 92–97
[2022-03-14] MEDS: HYDROcodone-acetaminophen 10-325 mg Tablet 1 TAB PO ×3 (05:18→17:40)
[2022-03-14] MEDS: magnesium hydroxide 30 mL UDC PO (05:43)
[2022-03-14 06:12] LABS: Basophils % 0.1 %; Hematocrit 39.4 % (42.0-52.0); Lymphocytes # 0.3 10^3/uL (0.8-4.8); Lymphocytes % 3.9 %; Mean Corpuscular Hemoglobin 32.9 pg (28.0-34.0); Mean Corpuscular Volume 99.7 fl (80-94); Mean Platelet Volume 12.5 fL (7.4-10.4); Monocytes # 0.6 10^3/uL (0.2-0.9); Monocytes % 9.1 %; Neutrophils # 5.92 10^3/uL (1.8-7.7); Neutrophils % 86.5 %; Nucleated Red Blood Cells % 0 %; Platelet Count 119 10^3/cmm (130-400); Red Blood Count 3.95 10^6/uL (4.1-5.3); Red Cell Distribution Width 13.4 % (12.1-15.1); White Blood Count 6.9 10^3/uL (4.0-10.0)
[2022-03-14 06:34] LABS: Glucose Point of Care 130 mg/dL (70-110)
[2022-03-14 06:36] LABS: Albumin Level 2.5 g/dL (3.5-5.2); Anion Gap 11.3 (5-19); Blood Urea Nitrogen 28 mg/dL (8-23); Calcium 9.3 mg/dL (8.5-10.5); Carbon Dioxide 26 mmol/L (22-29); Chloride 94 mmol/L (98-107); Glucose 128 mg/dL (65-115); Phosphorus 1.7 mg/dL (2.5-4.5); Potassium 4.3 mmol/L (3.5-5.1); Sodium 127 mmol/L (136-145)
[2022-03-14] MEDS: levofloxacin-dextrose 5 % 750 MG/150 ML PREMIX 100 MG IV (09:26)
[2022-03-14] MEDS: phosphorus 250 mg Tablet PO ×2 (09:31→17:40)
[2022-03-14] MEDS: lisinopril 10 mg Tablet PO (09:31)
[2022-03-14] MEDS: metoprolol succinate ER (24 HR) 25 mg Tablet PO (09:31)
[2022-03-14] MEDS: clopidogrel 75 mg Tablet PO (09:31)
[2022-03-14] MEDS: sennosides-docusate Tablet 1 TAB PO (09:31)
[2022-03-14 11:09] LABS: Glucose Point of Care 183 mg/dL (70-110)
--- NOTE | 2022-03-14 11:11 | PM.PN ---
Subjective Subjective: Patient endorses productive cough and shortness of breath. Endorses generalized weakness. Denies fevers, chills, chest pain or abdominal pain. Medications: Reviewed: Yes Vitals/I&O/Wt Last Vital Signs Temp 98.0 F 03/14/22 07:44 Pulse 102 H 03/14/22 09:53 Resp 18 03/14/22 09:53 BP 158/73 03/14/22 07:44 Pulse Ox 95 03/14/22 09:53 O2 Del Method 03/14/22 09:53 O2 Flow Rate 4 03/14/22 09:53 03/13/22 03/14/22 03/14/22 22:59 06:59 14:59 Intake Total 530 / 1130 360 / 1490 360 / 360 Output Total 800 / 800 600 / 1400 Balance -270 / 330 -240 / 90 360 / 360 Physical Exam Narrative: General: Patient is awake. Frail appearing. Head: Normocephalic. Atraumatic. EOMI. Neck: No JVD. Cardiovascular: Regular rhythm. No gallops. No murmurs. No peripheral edema. Lungs: Rhonchi in left lung. No wheezing. No rales. On nasal cannula support. Skin: No jaundice. No rashes. Multiple bruises. Abdomen: Normal bowel sounds, abdomen soft and nontender. Genito Urinary: Genital exam not performed since complaints not related. Rectal: Rectal exam not performed since no symptoms indicated blood loss. Extremities: No cyanosis or clubbing. Musculoskeletal: No obvious joint deformity. Neurological: Moves all 4 extremities. No myoclonus. Urinary Catheter Management: Foreman: Cath Placed During This Visit: yes, but has since been removed by the nurse Reason for Continuing Indwelling Catheter: Acute Urinary Retention or Obstruction Urinary Catheter Date of Insertion: 03/10/22 Urinary Catheter Time of Insertion: 23:36 Date Urinary Catheter Removed: 03/10/22 Time Urinary Catheter Discontinued: 16:00 Data 03/14/22 05:15 03/14/22 05:15 Micro: Microbiology 03/11/22 14:19 Gram Stain - Final Sputum - Expectorated Sputum Sputum Culture - Final Enterobacter cloacae A&P Assessment and plan (1) Sepsis: Source: Pneumonia Blood cultures are NGTD Legionella negative Sputum culture with Enterobacter with resistance to ceftriaxone Discontinue ceftriaxone Discontinue azithromycin Start levofloxacin Telemetry with continuous pulse oximetry (2) Pneumonia: Left-sided community-acquired pneumonia Abx as above (3) Hypoxemia: Acute hypoxic respiratory failure Treat underlying pneumonia and COPD Continuous pulse oximetry (4) Debility: Debility and physical deconditioning Treat underlying sepsis Physical therapy (5) COPD (chronic obstructive pulmonary disease): Discontinue Solumedrol Start prednisone Continue DuoNebs Antibiotics as above (6) Nicotine dependence, cigarettes, with other nicotine-induced disorders: Would benefit from cessation (7) Hypertension: Continue metoprolol Qualifiers: Hypertension type: primary hypertension Qualified Code(s): I10 - Essential (primary) hypertension (8) Coronary artery disease: Continue Plavix Qualifiers: Coronary Disease-Associated Artery/Lesion type: [place] artery [place] vs. transplanted heart: [place] heart Associated angina: without angina Qualified Code(s): I25.10 - Atherosclerotic heart disease of [place] coronary artery without angina pectoris (9) Diabetic peripheral neuropathy associated with type 2 diabetes mellitus: SSI Plan DVT ppx: Lovenox Code status: Full Code Attestations Medical Necessity Statement*: Patient requires ongoing hospitalization for respiratory support, IV antibiotics, breathing treatments and supportive care. 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 transplanted heart: [place] heart Associated angina: without angina Diabetic peripheral neuropathy associated with type 2 diabetes mellitus E11.42
[2022-03-14] MEDS: insulin lispro 100 unit/1 mL SUBCUT ×2 (11:56→21:53)
--- NOTE | 2022-03-14 12:58 | PC.NURSE ---
NEW ORDER FOR PREDNISONE ENTERED TO START TODAY. CLARIFIED ORDER AND VERBAL ORDER GIVEN TO START TOMORROW, SINCE PATIENT RECEIVED IV STEROIDS TODAY.
[2022-03-14 17:43] LABS: Glucose Point of Care 109 mg/dL (70-110)
[2022-03-14] MEDS: trazodone 150 mg Tablet 300 MG PO (20:09)
[2022-03-14] MEDS: enoxaparin 40 mg/0.4 mL Syringe SUBCUT (20:09)
[2022-03-14 22:00] LABS: Glucose Point of Care 168 mg/dL (70-110)
[2022-03-15] VITALS (10 sets, daily range): BP systolic 144–177; BP diastolic 63–83; PULSE 60–88; RESP 15–22; TEMP 36.2–36.8; O2SAT 91–97
[2022-03-15 04:10] LABS: Basophils % 0.2 %; Hematocrit 39.4 % (42.0-52.0); Hemoglobin 13.2 g/dL (11.7-16.6); Lymphocytes # 0.5 10^3/uL (0.8-4.8); Lymphocytes % 7.9 %; Mean Corpuscular HGB Conc 33.5 g/dL (30.0-36.0); Mean Corpuscular Hemoglobin 32.8 pg (28.0-34.0); Mean Platelet Volume 11.8 fL (7.4-10.4); Monocytes % 15.1 %; Neutrophils # 4.83 10^3/uL (1.8-7.7); Nucleated Red Blood Cells % 0 %; Platelet Count 110 10^3/cmm (130-400); Red Blood Count 4.02 10^6/uL (4.1-5.3); Red Cell Distribution Width 13.2 % (12.1-15.1); White Blood Count 6.4 10^3/uL (4.0-10.0)
[2022-03-15] MEDS: HYDROcodone-acetaminophen 10-325 mg Tablet 1 TAB PO ×3 (04:23→17:32)
[2022-03-15 04:28] LABS: Albumin Level 2.5 g/dL (3.5-5.2); Blood Urea Nitrogen 24 mg/dL (8-23); Carbon Dioxide 29 mmol/L (22-29); Chloride 95 mmol/L (98-107); Glucose 89 mg/dL (65-115); Magnesium 1.8 mg/dL (1.7-2.3); Sodium 129 mmol/L (136-145)
[2022-03-15 04:29] LABS: Anion Gap 9.3 (5-19); Potassium 4.3 mmol/L (3.5-5.1)
[2022-03-15] MEDS: magnesium hydroxide 30 mL UDC PO (06:17)
[2022-03-15 06:22] LABS: Glucose Point of Care 108 mg/dL (70-110)
[2022-03-15] MEDS: levofloxacin-dextrose 5 % 750 MG/150 ML PREMIX 100 MG IV (06:22)
[2022-03-15] MEDS: clopidogrel 75 mg Tablet PO (08:02)
[2022-03-15] MEDS: metoprolol succinate ER (24 HR) 25 mg Tablet PO (08:02)
[2022-03-15] MEDS: lisinopril 10 mg Tablet PO (08:02)
[2022-03-15] MEDS: predniSONE 20 mg Tablet 40 MG PO (08:02)
[2022-03-15] MEDS: phosphorus 250 mg Tablet PO ×2 (08:02→17:32)
[2022-03-15] MEDS: sennosides-docusate Tablet 1 TAB PO (08:02)
--- NOTE | 2022-03-15 10:10 | PC.SOCIAL ---
IMM update IMM updated with patient. Verbalized an understanding. Copy Pg 2 provided. Initialled, dated, timed, and placed in chart.
[2022-03-15 11:40] LABS: Glucose Point of Care 167 mg/dL (70-110)
[2022-03-15] MEDS: insulin lispro 100 unit/1 mL SUBCUT ×2 (12:37→21:56)
--- NOTE | 2022-03-15 12:54 | XR_ITS ---
WS: [id number] Portable AP upright chest, 03/15/2022 Clinical Data: sob Comparison: Portable chest, 03/10/2022 Findings: The right lung peripheral opacities have greatly resolved. The peripheral left upper lobe o pacities have increased. No nodules, masses or effusions are seen. The heart is at the upper limits o f normal. No pneumothorax is seen. XR/XR chest 1V portable [id number] Impression: 1. Significant clearing of right lung opacities. 2. Increase in left upper lobe opacities.
[2022-03-15] MEDS: FUROsemide 10 mg/mL SDV 2mL 20 MG IVP (14:13)
--- NOTE | 2022-03-15 16:47 | PM.PN ---
Subjective Subjective: Patient was seen this morning he continues to have shortness of breath, wheezing, weakness, cough, Vitals/I&O/Wt Last Vital Signs Temp 98.2 F 03/15/22 16:00 Pulse 70 03/15/22 16:00 Resp 16 03/15/22 16:00 BP 145/63 03/15/22 16:00 Pulse Ox 94 03/15/22 16:00 O2 Del Method 03/15/22 16:00 O2 Flow Rate 3 03/15/22 08:00 03/15/22 03/15/22 03/15/22 06:59 14:59 22:59 Intake Total 240 / 1350 630 / 630 Output Total 400 / 2400 Balance -160 / -1050 630 / 630 Physical Exam Const: COMMON NORMALS: no acute distress and patient oriented x3 Resp: COMMON NORMALS: normal respiratory effort, No retractions and No use of accessory muscles AUSCULTATION: wheezes Cardio: COMMON NORMALS: regular rate, regular rhythm, S1 normal heart sound present and S2 normal heart sound present RATE: regular rate RHYTHM: regular rhythm HEART SOUNDS: S1 normal heart sound present and S2 normal heart sound present GI: COMMON NORMALS: Normal to inspection, nondistended, normoactive bowel sounds present and non-tender Extremity: COMMON NORMALS: no pedal edema Neuro: COMMON NORMALS: patient oriented x3 Psych: COMMON NORMALS: mental status grossly normal Urinary Catheter Management: Foreman: Cath Placed During This Visit: yes, but has since been removed by the nurse Reason for Continuing Indwelling Catheter: Acute Urinary Retention or Obstruction Urinary Catheter Date of Insertion: 03/10/22 Urinary Catheter Time of Insertion: 23:36 Date Urinary Catheter Removed: 03/10/22 Time Urinary Catheter Discontinued: 16:00 Data 03/15/22 03:50 03/15/22 03:50 A&P Assessment and plan (1) Sepsis: Source: Pneumonia Blood cultures are NGTD Legionella negative Sputum culture with Enterobacter with resistance to ceftriaxone Continue Levaquin As he continues to have wheezing, will start on Solu-Medrol therapy Telemetry with continuous pulse oximetry (2) Pneumonia: Left-sided community-acquired pneumonia Abx as above (3) Hypoxemia: Acute hypoxic respiratory failure Treat underlying pneumonia and COPD Continuous pulse oximetry (4) Debility: Debility and physical deconditioning Treat underlying sepsis Physical therapy (5) COPD (chronic obstructive pulmonary disease): Start Solu-Medrol Continue DuoNebs Antibiotics as above (6) Nicotine dependence, cigarettes, with other nicotine-induced disorders: Would benefit from cessation (7) Hypertension: Continue metoprolol Qualifiers: Hypertension type: primary hypertension Qualified Code(s): I10 - Essential (primary) hypertension (8) Coronary artery disease: Continue Plavix Qualifiers: Coronary Disease-Associated Artery/Lesion type: [place] artery [place] vs. 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 transplanted heart: [place] heart Associated angina: without angina Diabetic peripheral neuropathy associated with type 2 diabetes mellitus E11.42
[2022-03-15 17:18] LABS: Glucose Point of Care 181 mg/dL (70-110)
[2022-03-15] MEDS: enoxaparin 40 mg/0.4 mL Syringe SUBCUT (20:32)
[2022-03-15] MEDS: trazodone 150 mg Tablet 300 MG PO (20:33)
[2022-03-15 21:23] LABS: Glucose Point of Care 203 mg/dL (70-110)
[2022-03-16] VITALS (7 sets, daily range): BP systolic 156–164; BP diastolic 74–80; PULSE 48–76; RESP 15–20; TEMP 36.3–36.6; O2SAT 90–98
[2022-03-16] MEDS: HYDROcodone-acetaminophen 10-325 mg Tablet 1 TAB PO (03:41)
[2022-03-16 04:31] LABS: Basophils % 0.2 %; Hematocrit 41.3 % (42.0-52.0); Hemoglobin 13.7 g/dL (11.7-16.6); Lymphocytes # 0.5 10^3/uL (0.8-4.8); Lymphocytes % 7.6 %; Mean Corpuscular HGB Conc 33.2 g/dL (30.0-36.0); Mean Corpuscular Hemoglobin 32.9 pg (28.0-34.0); Mean Corpuscular Volume 99.3 fl (80-94); Mean Platelet Volume 12.7 fL (7.4-10.4); Monocytes # 0.6 10^3/uL (0.2-0.9); Monocytes % 10.1 %; Neutrophils # 5.14 10^3/uL (1.8-7.7); Neutrophils % 80.8 %; Nucleated Red Blood Cells % 0 %; Platelet Count 127 10^3/cmm (130-400); Red Blood Count 4.16 10^6/uL (4.1-5.3); Red Cell Distribution Width 13.3 % (12.1-15.1); White Blood Count 6.4 10^3/uL (4.0-10.0)
[2022-03-16 04:55] LABS: Alanine Aminotransferase 105 U/L (0-41); Albumin Level 2.5 g/dL (3.5-5.2); Alkaline Phosphatase 94 U/L (40-130); Anion Gap 11.1 (5-19); Aspartate Amino Transferase 52 U/L (0-40); Blood Urea Nitrogen 27 mg/dL (8-23); Calcium 9.2 mg/dL (8.5-10.5); Carbon Dioxide 31 mmol/L (22-29); Chloride 96 mmol/L (98-107); Glucose 131 mg/dL (65-115); Magnesium 1.9 mg/dL (1.7-2.3); Osmolality Calculated 285 mOsm/kg (285-295); Potassium 4.1 mmol/L (3.5-5.1); Sodium 134 mmol/L (136-145); Total Bilirubin 0.2 mg/dL (0.15-1.2); Total Protein 5.5 g/dL (6.6-8.7)
[2022-03-16] MEDS: metoprolol succinate ER (24 HR) 25 mg Tablet PO (08:29)
[2022-03-16] MEDS: lisinopril 10 mg Tablet PO (08:29)
[2022-03-16] MEDS: predniSONE 20 mg Tablet 40 MG PO (08:29)
[2022-03-16] MEDS: phosphorus 250 mg Tablet PO (08:29)
[2022-03-16] MEDS: magnesium hydroxide 30 mL UDC PO (08:29)
[2022-03-16] MEDS: clopidogrel 75 mg Tablet PO (08:30)
[2022-03-16] MEDS: sennosides-docusate Tablet 1 TAB PO (08:30)
--- NOTE | 2022-03-16 10:32 | P.DS_ITS ---
Discharge Providers Date of Admission: 03/10/22 20:18 Date of Discharge: March 16, 2022 Attending Provider at Admission: Gunnar Verdugo MD Attending Provider at Discharge: Lam Pederson MD Primary Care Provider: Roge Branch DO Diagnoses at Discharge Discharge Diagnosis (1) Sepsis: Status: Acute (2) Pneumonia: Status: Acute (3) Hypoxemia: Status: Acute (4) Debility: Status: Acute (5) COPD (chronic obstructive pulmonary disease): Status: Acute (6) Nicotine dependence, cigarettes, with other nicotine-induced disorders: Status: Acute (7) Hypertension: Status: Acute Qualifiers: Hypertension type: primary hypertension Qualified Code(s): I10 - Essential (primary) hypertension (8) Coronary artery disease: Status: Acute Qualifiers: Associated angina: without angina Coronary Disease-Associated Artery/Lesion type: [place] artery [place] vs. transplanted heart: [place] heart Qualified Code(s): I25.10 - Atherosclerotic heart disease of [place] coronary artery without angina pectoris (9) Diabetic peripheral neuropathy associated with type 2 diabetes mellitus: Status: Acute Reason for Visit Reason for Visit: fall, head injury Hospital Course Hospital Course Jack June is a 71 year old male with remote history of stroke,? active smoker, known oxygen and COPD, lives alone, presented after sustaining a fall.? Patient is stating that today he tried to get up from his couch, he went near the window and lost his balance and fell on the floor, he has been feeling weak for quite some time, he has not noticed chest pain, fever, nausea, vomiting, diarrhea.? He has been feeling lethargic and fatigued.? He smokes 1 pack/day, he has been smoking since his teenage life.? He is denying recreational drugs, previous history of cancer.? Patient is denying chest pain, syncopal events. He was seen by the ER nurse practitioner, there was plan to discharge him today however when case was presented to the ER physician decision was made to admit him because now he is requiring 5 L of oxygen, he has low-grade fever and significant leukocytosis Chest x-ray showing left-sided pneumonia When I evaluated the patient I diagnosed him with sepsis related to community- acquired pneumonia give him septic bolus blood cultures have been taken, lactic acid requested, patient is awake and alert Has multiple bruises, CT scan of head and face unremarkable, CT cervical spine unremarkable it is showing dense consolidation left upper lobe Patient was [facility] to [facility] for left-sided pneumonia, with sepsis, with hypoxemia, with COPD exacerbation, received antibiotic therapy, oxygen therapy, inhaler therapy, steroid therapy clinically monitored. Patient's sputum cultures grew Enterobacter, he was switched over to Levaquin and monitored. He remained afebrile, oxygen requirement decreased to room air, steroid therapy was tailored due to increased wheezing. Overall patient clinically improved, to room air remains afebrile, blood cultures remain negative to date. Will be discharged on a prednisone burst, doxycycline, inha ler therapy with close follow-up with primary care provider as outpatient. Given the density of his consolidation, I might have him follow-up with pulmonary as outpatient Physical Exam Const: COMMON NORMALS: no acute distress and patient oriented x3 Resp: COMMON NORMALS: normal respiratory effort, No retractions, No use of accessory muscles and clear to auscultation bilaterally AUSCULTATION: clear to auscultation bilaterally Cardio: COMMON NORMALS: regular rate, regular rhythm, S1 normal heart sound present and S2 normal heart sound present RATE: regular rate RHYTHM: regular rhythm HEART SOUNDS: S1 normal heart sound present and S2 normal heart sound present GI: COMMON NORMALS: Normal to inspection, nondistended, normoactive bowel sounds present and non-tender Extremity: COMMON NORMALS: no pedal edema Neuro: COMMON NORMALS: patient oriented x3 Psych: COMMON NORMALS: mental status grossly normal Urinary Catheter Management: Foreman: Cath Placed During This Visit: yes, but has since been removed by the nurse Reason for Continuing Indwelling Catheter: Other Urinary Catheter Date of Insertion: 03/10/22 Urinary Catheter Time of Insertion: 23:36 Date Urinary Catheter Removed: 03/10/22 Time Urinary Catheter Discontinued: 16:00 Discharge Data Studies Completed and Pending Completed Studies During Hospitalization Category Date Time Status CT cervical spin wo con* [id number] Stat Cat Scan 03/10/22 10:[address] facial bones wo con* [id number] Stat Cat Scan 03/10/22 10:[address] head wo con* [id number] Stat Cat Scan 03/10/22 10:56 Completed CTA PE [CT angio chest PE protcl [id number]] Stat Cat Scan 03/10/22 21:10 Completed CXRP [XR chest 1V portable [id number]] Stat Exams 03/10/22 20:01 Completed XR chest 1V portable [id number] Routine Exams 03/15/22 12:54 Completed Pending at discharge Category Date Time Status Complete Blood Count w/Auto AM LABS Lab 03/17/22 04:00 Ordered Complete Blood Count w/Auto AM LABS Lab 03/18/22 04:00 Ordered Comprehensive Metabolic Panel AM LABS Lab 03/17/22 04:00 Ordered Comprehensive Metabolic Panel AM LABS Lab 03/18/22 04:00 Ordered Magnesium AM LABS Lab 03/17/22 04:00 Ordered Magnesium AM LABS Lab 03/18/22 04:00 Ordered Phosphorus AM LABS Lab 03/17/22 04:00 Ordered Phosphorus AM LABS Lab 03/18/22 04:00 Ordered Radiology Impressions Cervical Spine CT 03/10/22 10:56 IMPRESSION: 1. No acute cervical spine fracture. 2. Multilevel facet joint arthritis and foraminal stenoses as above. 3. Severe degenerative disc disease at C5-6 with complete ankylosis of the LEFT facet joint. 4. Dense area of consolidation partially visualized in the LEFT upper lobe. On a prior recent CT from 09/04/2021 there was no mass identified. Differential includes interval development of a neoplasm versus pneumonia. Favor pneumonia. Chest radiograph and follow-up to resolution is recommended. Face CT 03/10/22 10:56 IMPRESSION: 1. No acute facial bone fractures. 2. No significant soft tissue hematoma or contusion. 3. Remote fracture RIGHT frontal bone. Head CT 03/10/22 10:56 IMPRESSION: 1. No acute intracranial hemorrhage or edema. 2. 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 Distribution suggests posttraumatic in etiology. 3. Remote fracture RIGHT frontal bone. 4. No acute skull fracture or hematoma. 5. Mild atrophy with moderate small vessel ischemic disease. Chest CTA 03/10/22 21:10 IMPRESSION: 1. No pulmonary embolus or aortic dissection. 2. Peripheral ground-glass opacities with some central opacities in the right upper lobe, right middle lobe and right lower lobe consistent with moderate to severe right upper lobe, moderate right middle lobe and mild right lower lobe COVID-19 pneumonia versus other pneumonia. 3. Dense airspace disease in the posterior segment left upper lobe with air bronchograms suggesting possible bacterial pneumonia such as pneumococcal or Klebsiella with some bulging fissures. 4. Moderate paraseptal emphysema. 5. Mild centrilobular emphysema. 6. Mild geographic ground-glass opacities in the anterior portion of the left upper lobe suggesting possible COVID-19 pneumonia versus other pneumonia. 7. Severe chronic calcific pancreatitis. Chest X-Ray 03/15/22 12:54 Impression: 1. Significant clearing of right lung opacities. 2. Increase in left upper lobe opacities. Laboratory Results WBC 6.4 10^3/uL (4.0-10.0) 03/16/22 03:50 RBC 4.16 10^6/uL (4.1-5.3) 03/16/22 03:50 Hgb 13.7 g/dL (11.7-16.6) 03/16/22 03:50 Hct 41.3 % (42.0-52.0) L 03/16/22 03:50 MCV 99.3 fl (80-94) H 03/16/22 03:50 MCH 32.9 pg (28.0-34.0) 03/16/22 03:50 MCHC 33.2 g/dL (30.0-36.0) 03/16/22 03:50 RDW 13.3 % (12.1-15.1) 03/16/22 03:50 Plt Count 127 10^3/cmm (130-400) L 03/16/22 03:50 MPV 12.7 fL (7.4-10.4) H 03/16/22 03:50 Neut % (Auto) 80.8 % 03/16/22 03:50 Lymph % (Auto) 7.6 % 03/16/22 03:50 [place] % (Auto) 10.1 % 03/16/22 03:50 Eos % (Auto) 0.0 % 03/16/22 03:50 Baso % (Auto) 0.2 % 03/16/22 03:50 Neut # (Auto) 5.14 10^3/uL (1.8-7.7) 03/16/22 03:50 Lymph # (Auto) 0.5 10^3/uL (0.8-4.8) L 03/16/22 03:50 [place] # (Auto) 0.6 10^3/uL (0.2-0.9) 03/16/22 03:50 Eos # (Auto) 0.0 10^3/uL (0.0-0.8) 03/16/22 03:50 Baso # (Auto) 0.0 10^3/uL (0.0-0.1) 03/16/22 03:50 Nucleated RBC % (auto) 0 % 03/16/22 03:50 Nucleated RBCs # 0.0 /100WBC 03/16/22 03:50 D-Dimer 3.66 ug/mIFEU (0-0.59) H 03/10/22 20:28 Sodium 134 mmol/L (136-145) L 03/16/22 03:50 Potassium 4.1 mmol/L (3.5-5.1) 03/16/22 03:50 Chloride 96 mmol/L (98-107) L 03/16/22 03:50 Carbon Dioxide 31 mmol/L (22-29) H 03/16/22 03:50 Anion Gap 11.1 (5-19) 03/16/22 03:50 BUN 27 mg/dL (8-23) H 03/16/22 03:50 Creatinine 0.8 mg/dL (0.7-1.2) 03/16/22 03:50 GFR Calculation Not Reportable 03/16/22 03:50 Glucose 131 mg/dL (65-115) H 03/16/22 03:50 POC Glucose 203 mg/dL (70-110) H 03/15/22 21:11 Calculated Osmolality 285 mOsm/kg (285-295) 03/16/22 03:50 Lactate 1.9 mmol/L (0.5-2.2) 03/10/22 21:40 Calcium 9.2 mg/dL (8.5-10.5) 03/16/22 03:50 Phosphorus 3.0 mg/dL (2.5-4.5) 03/16/22 03:50 Magnesium 1.9 mg/dL (1.7-2.3) 03/16/22 03:50 Total Bilirubin 0.2 mg/dL (0.15-1.2) 03/16/22 03:50 AST 52 U/L (0-40) H 03/16/22 03:50 ALT 105 U/L (0-41) H 03/16/22 03:50 Alkaline Phosphatase 94 U/L (40-130) 03/16/22 03:50 Troponin T Baseline 51 ng/L (0-15) H 03/10/22 11:19 Troponin T 120 Minute 43.83 ng/L (0-15) H 03/10/22 13:40 Delta Troponin T -7.17 ABS# (0-10) L 03/10/22 13:40 C-Reactive Protein 209.2 mg/L (0.0-4.9) H 03/11/22 03:16 NT-Pro-B Natriuret Pep 13009 pg/mL (0-125) H 03/10/22 13:40 Total Protein 5.5 g/dL (6.6-8.7) L 03/16/22 03:50 Albumin 2.5 g/dL (3.5-5.2) L 03/16/22 03:50 Globulin 3.0 g/dL (1.3-4.6) 03/16/22 03:50 Procalcitonin 4.45 ng/mL (0-0.5) H 03/10/22 20:28 Urine Color Brown (Yellow) 03/10/22 12:36 Urine Appearance Hazy (CLEAR) A 03/10/22 12:36 Urine pH 6 (5-7) 03/10/22 12:36 Ur Specific [place] 1.020 (1.005-1.030) 03/10/22 12:36 Urine Protein 2+ (Negative) H 03/10/22 12:36 Urine Glucose (UA) Norm (Normal) 03/10/22 12:36 Urine Ketones 1+ (Negative) H 03/10/22 12:36 Urine Blood 3+ (Negative) H 03/10/22 12:36 Urine Nitrate Negative (Negative) 03/10/22 12:36 Urine Bilirubin Neg (Negative) 03/10/22 12:36 Urine Urobilinogen Norm mg/dL (Negative) 03/10/22 12:36 Ur Leukocyte Esterase Negative (Negative) 03/10/22 12:36 Urine RBC 0-4 /hpf (0-2) H 03/10/22 12:36 Urine WBC 0-4 /hpf (0-5) H 03/10/22 12:36 Ur Squamous Epith Cells 0-4 /hpf (0-5) H 03/10/22 12:36 Amorphous Sediment Not Reportable 03/10/22 12:36 Urine Bacteria 2+ /hpf (NONE) H 03/10/22 12:36 Hyaline Casts 0-4 /lpf H 03/10/22 12:36 Coronavirus 229E (PCR) Not detected (NOT DETECT) 03/10/22 23:46 Influenza Type A Ag negative (Negative) 03/10/22 18:19 Influenza Type B Ag negative (Negative) 03/10/22 18:19 SARS-CoV-2 (PCR) Not detected (NOT DETECT) 03/10/22 23:46 SARS-CoV-2 Ag (Rapid) negative (Negative) 03/10/22 18:19 Vitals Last Vital Signs Temp 97.4 F L 03/16/22 07:25 Pulse 67 03/16/22 07:33 Resp 20 H 03/16/22 07:33 BP 157/80 03/16/22 07:25 Pulse Ox 93 03/16/22 07:33 O2 Del Method 03/16/22 07:33 O2 Flow Rate 3 03/15/22 23:55 Discharge Plan Discharge Patient Disposition: Home Condition: Stable Prescriptions: New benzonatate 100 mg Capsule 100 mg PO Q8H PRN (Reason: Cough) 7 Days Qty: 21 0RF prednisone 20 mg Tablet 40 mg PO DAILY 5 Days Qty: 10 0RF albuterol sulfate 90 mcg/actuation HFA aerosol inhaler 1 inh inhalation Q6H PRN (Reason: shortness of breath or wheezing) Qty: 8.5 0RF doxycycline hyclate 100 mg tablet 100 mg PO BID 5 Days Qty: 10 0RF Continued amlodipine 10 mg tablet 10 mg PO DAILY Qty: 30 6RF Rx Instructions: Take one tablet by mouth in the evening. hydrocodone-acetaminophen 10-325 mg tablet 1 tab PO QID 30 Days Qty: 120 0RF magnesium hydroxide [Dietz Milk of Magnesia] 400 mg/5 mL suspension 60 ml PO DAILY PRN (Reason: constipation) Qty: 355 0RF allopurinol 100 mg tablet 200 mg PO DAILY Qty: 180 1RF isosorbide mononitrate 30 mg tablet extended release 24 hr 15 mg PO DAILY Qty: 45 1RF Incruse Ellipta 62.5 mcg/actuation blister with device 1 inh INHALATION DAILY Qty: 30 2RF lisinopril 5 mg tablet 5 mg PO BID Qty: 180 1RF bupropion HCl [Wellbutrin XL] 150 mg tablet extended release 24 hr 150 mg PO QAM Qty: 90 1RF clopidogrel 75 mg tablet 75 mg PO DAILY Qty: 90 1RF Hold Instructions: Resume on 02/16/22. spironolactone 25 mg tablet 12.5 mg PO DAILY Qty: 45 1RF fluticasone propion-salmeterol [Advair Diskus] 250-50 mcg/dose blister with device 1 inh inhalation Q12H Qty: 60 1RF mometasone 0.1 % solution 1 applic topical DAILY Qty: 60 3RF Rx Instructions: apply a few drops to itchy spots on scalp daily as needed tamsulosin 0.4 mg capsule 0.4 mg PO DAILY Qty: 90 1RF atorvastatin 80 mg tablet See Rx Instructions .ROUTE .COMPLEX Qty: 90 1RF Dose Instruction: TAKE ONE TABLET BY MOUTH DAILY AT BEDTIME Rx Instructions: TAKE ONE TABLET BY MOUTH DAILY AT BEDTIME trazodone 150 mg tablet See Rx Instructions .ROUTE .COMPLEX Qty: 60 2RF Dose Instruction: TAKE TWO TABLETS BY MOUTH AT BEDTIME Rx Instructions: TAKE TWO TABLETS BY MOUTH AT BEDTIME Changed metoprolol succinate 50 mg tablet extended release 24 hr 25 mg PO DAILY 30 Days Qty: 30 0RF Discharge Orders: Discharge Order (Routine); Ordered 03/16/22 Ordered By: Lam Pederson Other Ambulatory Orders: DME: Oxygen (Order) Location: None Selected Ordered By: Maynor Han Referrals: Roge Branch DO [Primary Care Provider] - 03/22/22 10:00 am Discharge Diet: Regular Discharge Activity: Increase activity as tolerated Patient Instructions: Urinary Tract Infection in Men (DC), Opioid Safety Activity Restrictions/Additional Instructions: Follow-up with medical provider as directed in the next 3 to 5 days for reevaluation. Take medications as prescribed. Return to the ER or your medical provider if condition worsens. Please read and understand discharge instructions. Thank you for choosing [facility] for your healthcare needs today. Please realize this is an emergency room and that we are providing you with a medical screening exam and this may not be complete and all inclusive of all the testing and or work up that you may need to determine your ailment or severity of your illness. It is very important that you follow up as instructed or that you return to the Emergency Department should you have concerns or if your condition changes or worsens in any way. Discharge Attestations Time Spent in Discharge Care*: less than 30 min Status at Discharge: Cognitive status at discharge: cognitively intact , Quality Metrics Clinical Quality Measures [ No reported AMI, CVA or VTE this stay] Coding Level of Care Code Acute Chg FW DC note Exam Detailed Diagnoses Sepsis A41.9 Pneumonia J18.9 Hypoxemia R09.02 Debility R53.81 COPD (chronic obstructive pulmonary disease) J44.9 Nicotine dependence, cigarettes, with other nicotine-induced disorders F17.218 Hypertension I10 Hypertension type: primary hypertension Coronary artery disease I25.10 Associated angina: without angina Coronary Disease-Associated Artery/Lesion type: [place] artery [place] vs. transplanted heart: [place] heart Diabetic peripheral neuropathy associated with type 2 diabetes mellitus E11.42
[2022-03-16 11:10] LABS: Glucose Point of Care 225 mg/dL (70-110)
[2022-03-16] MEDS: insulin lispro 100 unit/1 mL SUBCUT (12:22)
--- NOTE | 2022-03-16 14:10 | PC.NURSE ---
During d/c instructions, patient's spouse stated that they would prefer medications be sent somewhere closer as they were not going to [facility] today. I called verbal orders in for all new/changed meds to [facility] on [address]. I also called [facility] and cancelled Rx that were sent there. I provided this information to patient and family and provided education on new/changed medications to patient's spouse. She verbalizes understanding.
== END 2022-03-16 14:24 | disposition home or self-care (01) | DRG 871 ==
LOC: ER 18:04 → MEDSURG 20:28
PROVIDERS: Internal Medicine; Physician Assistant; Admitting Provider Internal Medicine; Emergency Provider Emergency Medicine; PCP Family Medicine; Visit Provider Family Medicine
DX: A41.9 Sepsis, unspecified organism (principal); J18.9 Pneumonia, unspecified organism; J96.01 Acute respiratory failure with hypoxia; J44.1 Chronic obstructive pulmonary disease with (acute) exacerbation; J44.0 Chronic obstructive pulmonary disease with (acute) lower respiratory infection; F17.210 Nicotine dependence, cigarettes, uncomplicated; Z86.73 Personal history of transient ischemic attack (TIA), and cerebral infarction without residual deficits; Z99.81 Dependence on supplemental oxygen; N40.0 Benign prostatic hyperplasia without lower urinary tract symptoms; I25.10 Atherosclerotic heart disease of native coronary artery without angina pectoris; Z95.5 Presence of coronary angioplasty implant and graft; E11.51 Type 2 diabetes mellitus with diabetic peripheral angiopathy without gangrene; E11.42 Type 2 diabetes mellitus with diabetic polyneuropathy; Z85.828 Personal history of other malignant neoplasm of skin; I10 Essential (primary) hypertension; I34.0 Nonrheumatic mitral (valve) insufficiency; Z79.891 Long term (current) use of opiate analgesic; Z79.02 Long term (current) use of antithrombotics/antiplatelets; Z79.51 Long term (current) use of inhaled steroids; B96.89 Other specified bacterial agents as the cause of diseases classified elsewhere
CPT/HCPCS: 36415; 36416; 51702; 51798; 70450; 70486; 71045; 71275; 72125; 80048; 80053; 80069; 81001; 82962; 83605; 83735; 83880; 84100; 84145; 84484; 85025; 85378; 86140; 86403; 87040; 87070; 87077; 87086; 87186; 87205; 87426; 87449; 87635; 87641; 87804; 92523; 92610; 93005; 94640; 94760; 96365; 96372; 96375; 96376; 97110; 97161; 99285; J0456; J0696; J1650; J1815; J1940; J1956; J2270; J2405; J2920; J2930; J7030; J7050; J7512; Q0144; Q9967

== ENCOUNTER → 2022-06-01 11:21 | Outpatient (BNVA) | payer MEDICARE, MEDICAID, SELFPAY | PROVIDERS: PCP Family Medicine; Visit Provider Family Medicine | DX: E11.42 Type 2 diabetes mellitus with diabetic polyneuropathy (principal); R63.4 Abnormal weight loss; R53.83 Other fatigue; N40.0 Benign prostatic hyperplasia without lower urinary tract symptoms | CPT/HCPCS: 80053; 80061; 84153; 84443; 85025 ==

== ENCOUNTER 2022-08-09 06:57 | Outpatient (CLI) | payer MEDICARE, MEDICAID, SELFPAY ==
--- NOTE | 2022-08-09 07:00 | CT_ITS ---
WS: [id number] CTA CHEST ABDOMEN AND PELVIS TECHNIQUE: Noncontrast plus contrast enhanced CTA of the chest, abdomen, and pelvis with coronal and sagittal reformatted images and additional MIP Images. CLINICAL INFORMATION: R63.4 - Abnormal weight loss COMPARISON: March 10, 2022, 01/14/2021 and December 14, 2019 DLP: 733.[address] scans at [facility] use at least one of these dose optimization techniques: automated e xposure control; mA and/or kV adjustment per patient size (includes targeted exams where dose is matc hed to clinical indication); or iterative reconstruction. FINDINGS: Moderate chronic emphysematous changes. Calcified granulomas. Calcified mediastinal lymph n odes. Normal caliber thoracic aorta. Aortic calcification. Coronary calcification. Dense coronary saturnino cification. Proximal main pulmonary arteries are normal. Advanced chronic emphysematous changes. Parenchymal fibrosis LEFT upper lobe laterally with pleural p arenchymal scarring extending along the LEFT fissure. Previously described infiltrates from March 10, 2022 in this area have resolved. Calcified mediastinal and hilar lymph nodes. No axillary lymphadenopathy. Hypertrophic changes thorac ic spine. Advanced degenerative changes the mid thoracic spine. ABDOMEN PELVIS: Evidence of chronic pancreatitis with pancreatic calcifications. Stable dorsal pancreatic pseudocyst measuring 2.2 x 1.3cm. Hepatomegaly. Normal noncontrast spleen. Normal GE junction. Normal gallbladd er. Mild thickening of the adrenal glands unchanged. No hydronephrosis in the LEFT kidney. Atrophic R IGHT kidney with severe RIGHT renal artery stenosis. Accessory RIGHT renal artery. Urine distended bladder. Enlarged prostate with bladder outlet obstruction. Prostate measures 6.2 CM. This is significantly progressed compared to 2019 suspicious for neoplasia/hyperplasia. Sigmoid cons tipation. Diffuse body wall anasarca. Advanced disc space narrowing at L1-L2, L3-L4, L4-L5. Stable lobulated infrarenal abdominal aortic aneurysm measuring 2.7 x 2.2 CM. Prior aortic aneurysm r epair with aortic bifemoral bypass graft appears patent. [place] iliac arteries are occluded. Dense vascular calcification. 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 Reconstitution just distal to th e origin. SMA is patent. Evidence of chronic pancreatitis with chronic pancreatic calcifications. Di verticulosis. No evidence of acute diverticulitis. Prior appendectomy. CT/CT ang [facility] abdpel [id number] IMPRESSION: 1. Pleural parenchymal scarring with spiculation in the LEFT upper lobe abutti ng the pleura and adjacent fissure. This is new from the prior studies. Recomme nd 3 month follow-up chest CT. 2. Lungs are otherwise well aerated. Previously described pulmonary infiltrate s have resolved. 3. Moderate chronic emphysematous changes. 4. Evidence of chronic pancreatitis with stable pseudocyst 5. Stable lobulated infrarenal abdominal aortic aneurysm measuring 2.7 x 2.2 C M. Prior aortic aneurysm repair with aortic bifemoral bypass graft appears gifford nt. 6. Atrophic RIGHT kidney with severe RIGHT renal artery stenosis. 7. Enlarged prostate with bladder outlet obstruction and thickening of the renate inal vesicles. Recommend correlation PSA. Findings suspicious for neoplasm. Pro state size is significantly progressed compared to 2019. 8. Stenosis of the RIGHT common femoral artery at the anastomosis measuring a pproximately 50%.
[2022-08-09 07:39] LABS: Blood Urea Nitrogen 17 mg/dL (8-23)
[2022-08-09] MEDS: iohexol 350 mg/mL 500 mL Btl (per mL) IV (07:50)
== END 2022-08-09 06:58 | disposition home or self-care (01) ==
LOC: RAD 07:01
PROVIDERS: Radiology Neuroradiology; PCP Family Medicine; Visit Provider Family Medicine
DX: R10.9 Unspecified abdominal pain (principal); R53.83 Other fatigue; R63.4 Abnormal weight loss
CPT/HCPCS: 71275; 74174; 82565; 84520; Q9967

== ENCOUNTER → 2022-09-30 10:50 | Outpatient (BNVA) | payer MEDICARE, MEDICAID, SELFPAY | PROVIDERS: PCP Family Medicine; Visit Provider Family Medicine | DX: E83.52 Hypercalcemia (principal); N40.0 Benign prostatic hyperplasia without lower urinary tract symptoms; N32.0 Bladder-neck obstruction; R53.83 Other fatigue; R63.4 Abnormal weight loss; J44.9 Chronic obstructive pulmonary disease, unspecified; F17.218 Nicotine dependence, cigarettes, with other nicotine-induced disorders; K86.1 Other chronic pancreatitis | CPT/HCPCS: 80053; 81000; 82043; 82306; 83735; 84154; 85025; 86140; 86803; 87086; 87806 ==

== ENCOUNTER → 2022-11-02 14:47 | Outpatient (BNVA) | payer MEDICARE, MEDICAID, SELFPAY | PROVIDERS: PCP Family Medicine; Visit Provider Internal Medicine Pulmonary Disease | DX: R91.8 Other nonspecific abnormal finding of lung field; J43.1 Panlobular emphysema; F17.218 Nicotine dependence, cigarettes, with other nicotine-induced disorders; R63.4 Abnormal weight loss; Z68.20 Body mass index [BMI] 20.0-20.9, adult | CPT/HCPCS: 99204 ==

== ENCOUNTER → 2022-11-10 14:18 | Outpatient (BNVA) | payer MEDICARE, MEDICAID, SELFPAY | PROVIDERS: PCP Family Medicine; Referring Provider Dermatology; Visit Provider Podiatrist Foot & Ankle Surgery | DX: I73.9 Peripheral vascular disease, unspecified; E11.42 Type 2 diabetes mellitus with diabetic polyneuropathy; M77.41 Metatarsalgia, right foot; M77.42 Metatarsalgia, left foot | CPT/HCPCS: 73630; 99213 ==

== ENCOUNTER 2022-11-20 09:57 | Outpatient (CLI) | payer MEDICARE, MEDICAID, SELFPAY ==
--- NOTE | 2022-11-20 10:30 | PETR_ITS ---
PROCEDURE INFORMATION: Exam: PET/CT Skull Base to Mid-thigh Exam date and time: 11/20/2022 11:02 AM Age: 72 years old Clinical indication: Abnormal findings; Lung nodule; Additional info: Follow up on lung nodule LABS AND CLINICAL REPORTS: Glucose: 121 mg/dl Treatment strategy for malignancy (PET staging): Initial Staging (PI) TECHNIQUE: Imaging protocol: Following at least four-hour fasting and following the injection of radiopharmaceutical, low dose CT images were obtained. Then, PET images were obtained. Attenuation corrected images were constructed using the CT scan. Fused images of PET and CT were reviewed. The standardized uptake values (SUV) reported below are maximum values within a region of interest, expressed in gm/ml. Exam includes orbital meatal line to mid-thigh. Radiopharmaceutical: 12 mCi F-18 FDG (Fluorodeoxyglucose), IV. Time of imaging post radiopharmaceutical administration: 1 hour Injection site: Left AC COMPARISON: CT chest abdomen pelvis from 08/09/2022 and CTA chest from 03/10/[address] head from 03/10/2022 FINDINGS: Brain: There appears to be an area of encephalomalacia in the inferior right frontal lobe, similar to prior. Pharynx: No abnormal uptake. Larynx: No abnormal uptake. Lungs, pleura and trachea: FDG uptake below background is seen associated with the platelike opacity in the left upper lobe (SUV max 1.8). Small bilateral pleural effusions. Heart: Normal physiologic uptake. Mediastinal space: No abnormal uptake. Liver: No abnormal uptake. Gallbladder and bile ducts: No abnormal uptake. Pancreas: Calcifications throughout the pancreatic parenchyma, suggestive of chronic pancreatitis. Spleen: No abnormal uptake. Adrenal glands: No abnormal uptake. Kidneys and ureters: Atrophic right kidney. Stomach and bowel: No abnormal uptake. Vasculature: Status post aortobifemoral bypass. Lymph nodes: Mild FDG uptake is seen associated with mildly prominent and partially calcified mediastinal and hilar lymph nodes (SUV max 3.2). These appear unchanged in size from prior studies. Bones/joints: No abnormal uptake in the visualized axial and appendicular skeleton. Soft tissues: No abnormal uptake in the visualized head, neck, chest, abdomen, pelvis, and extremities. PET/PET skulltothigh SUBSEQ [id number] IMPRESSION: 1. No FDG uptake above background is seen associated with the platelike opacity in the left upper lobe, which is favored to reflect an area of scarring relating to prior pneumonia. 2. Mild FDG uptake is seen associated with mildly prominent and partially calcified mediastinal and hilar lymph nodes, likely reflecting sequela granulomatous disease. 3. Small bilateral pleural effusions.
== END 2022-11-20 09:58 | disposition home or self-care (01) ==
LOC: RAD 11-22 05:41
PROVIDERS: PCP Family Medicine; Visit Provider Internal Medicine Pulmonary Disease
DX: R91.8 Other nonspecific abnormal finding of lung field (principal); J90 Pleural effusion, not elsewhere classified
CPT/HCPCS: 78815; A9552

== ENCOUNTER 2022-11-23 08:56 | Outpatient (CLI) | payer MEDICARE, MEDICAID, SELFPAY ==
[2022-11-23 09:25] VITALS: PULSE 64; RESP 18; O2SAT 99
[2022-11-23] MEDS: albuterol 2.5 mg/3 mL Neb INHALATION (09:25)
[2022-11-23 09:30] VITALS: PULSE 66
== END 2022-11-23 08:57 | disposition home or self-care (01) ==
LOC: RT 08:57
PROVIDERS: PCP Family Medicine; Visit Provider Internal Medicine Pulmonary Disease
DX: R06.02 Shortness of breath (principal)
CPT/HCPCS: 94060; 94618; 94726; 94729; J7613

== ENCOUNTER → 2022-11-25 11:06 | Outpatient (BNVA) | payer MEDICARE, MEDICAID, SELFPAY | PROVIDERS: PCP Family Medicine; Visit Provider Internal Medicine Cardiovascular Disease | DX: I45.2 Bifascicular block (principal); R07.9 Chest pain, unspecified; I25.10 Atherosclerotic heart disease of native coronary artery without angina pectoris; Z98.61 Coronary angioplasty status; I34.0 Nonrheumatic mitral (valve) insufficiency; I10 Essential (primary) hypertension; I77.9 Disorder of arteries and arterioles, unspecified; F17.210 Nicotine dependence, cigarettes, uncomplicated | CPT/HCPCS: 93005; 99214 ==

== ENCOUNTER 2022-12-13 07:35 | Outpatient (CLI) | payer MEDICARE, MEDICAID, SELFPAY ==
--- NOTE | 2022-12-13 07:45 | USCV_ITS ---
Jack June Age: 72 Gender: M : 1950 Exam Date: 12/13/2022 07:48 Ordering Phys: Aleksandra Potts MD ([email or web address]) Technologist: Exam Location: [facility] – [place] Indication: Chest pain BP: 132 / 73 HR: 57 Rhythm: Other Technical Quality: Adequate MEASUREMENTS (Male / Female) Normal Values 2D ECHO LV Diastolic Diameter PLAX 4.7 cm 4.2 - 5.9 / 3.9 - 5.3 cm LV Systolic Diameter PLAX 3.0 cm IVS Diastolic Thickness 1.3 cm 0.6 - 1.0 / 0.6 - 0.9 cm IVS Systolic Thickness 1.7 cm LVPW Diastolic Thickness 1.0 cm 0.6 - 1.0 / 0.6 - 0.9 cm LVPW Systolic Thickness 1.3 cm LVOT Diameter 2.0 cm LV Ejection Fraction 2D Teich 66.2 % LV Ejection Fraction MOD 2C 73.3 % LV Ejection Fraction 2C AL 73.3 % LA Diameter 4.5 cm IVC Diameter 1.0 cm M-MODE Aortic Annulus Diameter 3.2 cm LA Ao Ratio MM 1.6 MV E Point Septal Separation 1.3 cm DOPPLER AV Peak Velocity 169.7 cm/s LVOT Peak Velocity 103.0 cm/s AV Area Cont Eq vti 2.1 cm squared AV Area Cont Eq pk 2.0 cm squared MV E' Velocity 6.0 cm/s TR Peak Velocity 280.0 cm/s TR Peak Gradient 31.4 mmHg TV Peak E Velocity 98.0 cm/s RV Acceleration Time 0.1 s FINDINGS Left Ventricle Normal left ventricular size, systolic function and increased wall thickness, with no regional wall motion abnormalities. Left ventricular ejection fraction is estimated at 70-75 %. Right Ventricle Normal right ventricular size and systolic function. RVSP could not be calculated due to incomplete tricuspid regurgitation velocity profile. Right Atrium Normal right atrial size. Left Atrium Moderately increased left atrial size. Mitral Valve Markedly thickened mitral valve (tips >> body of the leaflets). Moderate mitral valve stenosis (RHX=945 msec, MVA=1.3 cm2, MG=10 mm Hg) . Mild mitral valve regurgitation. Aortic Valve No aortic valve stenosis. Trace aortic valve regurgitation. Tricuspid Valve Structurally normal tricuspid valve. No tricuspid valve stenosis. Trace to mild tricuspid valve regurgitation. Pulmonic Valve Structurally normal pulmonic valve. No pulmonary valve stenosis. Trace pulmonary valve regurgitation. Pericardium No pericardial effusion. Aorta Normal size aortic root and proximal ascending aorta. IVC Normal IVC dimension with >50% respiratory change of the inferior vena cava. CONCLUSIONS 1. Normal left ventricular size, systolic function and increased wall thickness, with no regional wall motion abnormalities. Left ventricular ejection fraction is estimated at 70-75 %. 2. Moderate mitral valve stenosis (ZUP=147 msec, MVA=1.3 cm2, MG =10 mm Hg) . Mild mitral valve regurgitation. 3. No prior similar studies to compare. Aleksandra Potts MD (Electronically Signed) Final Date: 14 December 2022 21:01 S
== END 2022-12-13 07:36 | disposition home or self-care (01) ==
PROVIDERS: PCP Family Medicine; Visit Provider Internal Medicine Cardiovascular Disease
DX: R06.02 Shortness of breath (principal); E11.42 Type 2 diabetes mellitus with diabetic polyneuropathy; I05.0 Rheumatic mitral stenosis; I73.9 Peripheral vascular disease, unspecified; R23.4 Changes in skin texture; M79.671 Pain in right foot
CPT/HCPCS: 93306; 99213

== ENCOUNTER 2022-12-14 09:19 | Outpatient (CLI) | payer MEDICARE, MEDICAID, SELFPAY ==
[2022-12-14 09:31] VITALS: BMI 19.2
--- NOTE | 2022-12-14 09:32 | NMCV_ITS ---
NM asmita perf SPECT r/s* [id number] Jack June Age: 72 Gender: M : 1950 Exam Date: 12/14/2022 10:42 Ordering Phys: Aleksandra Potts MD ([email or web address]) Technologist: LORI Lewis Exam Location: [facility] Indications: SHORTNESS OF BREATH, ATHEROSCLEROTIC HEART DISEASE, CORONARY ANGIOPLASTY STATUS STRESS TEST Please see separate stress test report in [facility] for full findings IMAGE PROTOCOL Rest/Stress 1 Lexiscan Day Radiopharmaceutical Dose (mCi) Administration Site Administered by Rest: Tc-99m 10.6 IV LORI Lewis Sestamibi Stress:Tc-99m 32.4 IV LORI Garcia Sestamibi Rest: 14-Dec-2022 60 Discovery 630 Stress: 14-Dec-2022 30 Discovery 630 0.4mg Lexiscan. Images obtained in supine and prone position. SPECT RESULTS Technical Quality: Excellent Raw Data Analysis: Normal Image Corrections: No attenuation or motion correction applied Summed Stress Score: 12 Summed Rest Score: 5 Summed Difference Score: 7 PERFUSION FINDINGS Medium sized partially reversible perfusion abnormality of mid to apical inferior, anterior, apical lateral and apical martinez on stress images. FUNCTIONAL RESULTS (calculated via Gated SPECT) Stress Image LV EF (%): 43 Stress EDV (mL):132 TID: 0.99 Stress ESV (mL):75 FUNCTIONAL FINDINGS: The left ventricle is normal in size. Transient Ischemia Dilatation of 0.99. The left ventricular ejection fraction is mildly reduced with a value of 43%. There is mild global hypokinesis more pronounced in mid to apical anterior martinez. IMPRESSIONS 1. Medium sized partially reversible perfusion abnormality of mid to apical inferior, anterior, apical lateral and apical martinez. This may represent ischemia in left anterior descending/right coronary artery territory. 2. The left ventricular ejection fraction is mildly reduced with a value of 43%. 3. There is mild global hypokinesis more pronounced in mid to apical anterior martinez. 4. EKG portion of the study will be reported separately. Aleksandra Potts MD (Electronically Signed) Final Date: 15 December 2022 17:16 S
--- NOTE | 2022-12-14 09:32 | ECG_ITS ---
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 Interpretive Statements NAME OF STUDY: LEXISCAN SESTAMIBI STRESS TEST INDICATION: Shortness of breath, coronary artery disease PROCEDURE: At the baseline, the blood pressure was 156/65 mmHg, oxygen saturation 96% with a heart rate of 68 beats per min. The electrocardiogram showed sinus rhythm, left anterior fascicular block. Right bundle branch block. The Lexiscan was infused over a period of 20 seconds. A total of 0.4 milligrams of Lexiscan was infused. The stress phase was continued for a total of 5 minutes. Heart rate at the end of the stress phase was 85 bpm, oxygen saturation 97% with a blood pressure 170/54 mmHg. The EKG at the peak infusion revealed sinus rhythm at 85 bpm with no significant ST-T wave changes. Sestamibi was injected 20 seconds after the Lexiscan infusion. Blood pressure at the end of the recovery phase was 75/61 mmHg, oxygen saturation 96% with a heart rate of 82 beats per minute. CONCLUSION: 1. No significant EKG changes with the LexiScan infusion. 2. No LexiScan induced chest pain or cardiac arrhythmia. 3. Normal blood pressure and heart rate response. 4. Sestamibi/sestamibi perfusion scan pending; see separate report. Electronically Signed On 12-15-2022 16:44:20 CDT by Aleksandra Potts M.D. [email or web address]
[2022-12-14] MEDS: regadenoson 0.4 Mg/5 ml Syringe IVP (11:14)
[2022-12-14 12:00] VITALS: BP 175/61; PULSE 83
== END 2022-12-14 09:20 | disposition home or self-care (01) ==
LOC: CDL 09:20
PROVIDERS: PCP Family Medicine; Visit Provider Internal Medicine Cardiovascular Disease
DX: I25.10 Atherosclerotic heart disease of native coronary artery without angina pectoris (principal); R06.02 Shortness of breath; Z98.61 Coronary angioplasty status
CPT/HCPCS: 36415; 78452; 93017; 96374; A9500; J2785

== ENCOUNTER 2022-12-17 07:51 | Outpatient (CLI) | payer MEDICARE, MEDICAID, SELFPAY ==
--- NOTE | 2022-12-17 08:00 | USCV_ITS ---
Jack June Age: 72 Gender: M : 1950 Exam Date: 12/17/2022 08:13 Ordering Phys: Aleksandra Potts MD ([email or web address]) Technologist: CT Exam Location: [facility] – [place] Indication: Risk Factors: Previous Vascular Surgery: rt cea, left stent Right Brachial BP: / Left Brachial BP: / Right Left Velocity (cm/s) Spectral Plaque Velocity (cm/s) Spectral Plaque Syst/Diast Broadening Syst/Diast Broadening 91.40/ 12.00 Prox CCA 101.70/ 17.90 95.70/ 12.00 Mid CCA 77.80 / 19.60 79.80/ 19.30 Distal CCA 52.90 / 19.20 71.30/ 20.20 Prox ICA 101.40/ 24.30 96.10/ 28.60 Mid ICA 99.20 / 28.60 102.30/23.50 Distal ICA 104.20/ 30.30 314.90 ECA 31.40 1.07 ICA/CCA 1.02 Antegrade Vertebral Antegrade 63.90/ 15.40 cm/s 51.90/ 18.40 cm/s Tri Subclavian Tri 147.6 161.6 0 0 FINDINGS Comparison:. 7/. Mild bilateral scattered calcified plaque and intimal thickening throughout the common carotid arteries and extending through the bifurcation. No significant elevation of systolic or diastolic velocities. Left carotid stent is patent. Antegrade vertebral arteries. CONCLUSIONS Bilateral ICA stenosis less than 50%. Patent left ICA stent. Dr. Gaviota Prabhakar DO (Electronically Signed) Final Date: 17 December 2022 13:10 S
== END 2022-12-17 07:52 | disposition home or self-care (01) ==
LOC: RAD 07:51
PROVIDERS: PCP Family Medicine; Visit Provider Internal Medicine Cardiovascular Disease
DX: I65.23 Occlusion and stenosis of bilateral carotid arteries; Z98.890 Other specified postprocedural states
CPT/HCPCS: 93880; 99214

== ENCOUNTER → 2023-01-06 11:03 | Outpatient (BNVA) | payer MEDICARE, MEDICAID, SELFPAY | PROVIDERS: PCP Family Medicine; Visit Provider Internal Medicine Pulmonary Disease | DX: R91.8 Other nonspecific abnormal finding of lung field (principal); J43.1 Panlobular emphysema; F17.218 Nicotine dependence, cigarettes, with other nicotine-induced disorders; K63.5 Polyp of colon; K57.92 Diverticulitis of intestine, part unspecified, without perforation or abscess without bleeding; N40.0 Benign prostatic hyperplasia without lower urinary tract symptoms | CPT/HCPCS: 99214 ==

== ENCOUNTER 2023-01-06 15:23 | Outpatient (CLI) | payer MEDICARE, MEDICAID, SELFPAY | END 2023-01-06 15:24 | disposition home or self-care (01) | LOC: SPT 15:24 | PROVIDERS: PCP Family Medicine; Visit Provider Podiatrist Foot & Ankle Surgery | DX: Z46.89 Encounter for fitting and adjustment of other specified devices (principal); M79.673 Pain in unspecified foot; E11.42 Type 2 diabetes mellitus with diabetic polyneuropathy; I73.9 Peripheral vascular disease, unspecified; M77.41 Metatarsalgia, right foot; M77.42 Metatarsalgia, left foot | CPT/HCPCS: 97760; 99213; L3030 ==

== ENCOUNTER → 2023-01-21 11:15 | Outpatient (BNVA) | payer MEDICARE, MEDICAID, SELFPAY | PROVIDERS: PCP Family Medicine; Visit Provider Podiatrist Foot & Ankle Surgery | DX: E11.42 Type 2 diabetes mellitus with diabetic polyneuropathy; I73.9 Peripheral vascular disease, unspecified; L97.521 Non-pressure chronic ulcer of other part of left foot limited to breakdown of skin; E11.621 Type 2 diabetes mellitus with foot ulcer | CPT/HCPCS: 99213 ==

== ENCOUNTER → 2023-02-14 07:49 | Outpatient (BNVA) | payer MEDICARE, MEDICAID, SELFPAY | PROVIDERS: PCP Family Medicine; Visit Provider Podiatrist Foot & Ankle Surgery | DX: I73.9 Peripheral vascular disease, unspecified (principal); I25.10 Atherosclerotic heart disease of native coronary artery without angina pectoris; E11.42 Type 2 diabetes mellitus with diabetic polyneuropathy; R09.89 Other specified symptoms and signs involving the circulatory and respiratory systems | CPT/HCPCS: 99214 ==

== ENCOUNTER 2023-03-01 12:52 | Outpatient (CLI) | payer MEDICARE, MEDICAID, SELFPAY ==
--- NOTE | 2023-03-01 13:01 | USCV_ITS ---
Jack June Age: 72 Gender: M : 1950 Exam Date: 03/01/2023 14:19 Ordering Phys: Francisco Zendejas DPM Technologist: Exam Location: [facility] [place] Indication: db, foot pain RIGHT LEFT Brachial 136.00 mmHg Brachial 141.00 mmHg FINDINGS Resting VERA was 0.38 on the right side and 0.68 on the left side. Resting TBI of could not be obtained on the right side. Resting TBI of 0.67 on the left side CONCLUSIONS 1. Features of severe peripheral artery disease on the right side with an VERA of 0.38. Possible occlusion of the posterior tibial and dorsalis pedis arteries on the right side with no recordable pressure in the right big toe. 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 2. Abnormal resting VERA and TBI on the left side, suggesting moderate peripheral artery disease. Compared to the study from 08/12/2017, there is progression of disease on both sides Dr Rony Echevarria MD [facility] (Electronically Signed) Final Date: 02 March 2023 08:58 S
== END 2023-03-01 12:53 | disposition home or self-care (01) ==
LOC: RAD 12:53
PROVIDERS: PCP Family Medicine; Visit Provider Podiatrist Foot & Ankle Surgery
DX: I25.10 Atherosclerotic heart disease of native coronary artery without angina pectoris (principal); E11.42 Type 2 diabetes mellitus with diabetic polyneuropathy; I73.9 Peripheral vascular disease, unspecified; R09.89 Other specified symptoms and signs involving the circulatory and respiratory systems
CPT/HCPCS: 93923; 99213

== ENCOUNTER → 2023-03-03 14:08 | Outpatient (BNVA) | payer MEDICARE, MEDICAID, SELFPAY | PROVIDERS: PCP Family Medicine; Visit Provider Internal Medicine Cardiovascular Disease | DX: I25.10 Atherosclerotic heart disease of native coronary artery without angina pectoris (principal); I10 Essential (primary) hypertension; I34.0 Nonrheumatic mitral (valve) insufficiency; F17.210 Nicotine dependence, cigarettes, uncomplicated | CPT/HCPCS: 99214 ==

== ENCOUNTER → 2023-03-10 11:23 | Outpatient (BNVA) | payer MEDICARE, MEDICAID, SELFPAY | PROVIDERS: PCP Family Medicine; Referring Provider Podiatrist Foot & Ankle Surgery; Visit Provider Thoracic Surgery (Cardiothoracic Vascular Surgery) | DX: I73.9 Peripheral vascular disease, unspecified (principal); F17.210 Nicotine dependence, cigarettes, uncomplicated | CPT/HCPCS: 99203 ==

== ENCOUNTER 2023-03-18 06:31 | Outpatient (CLI) | payer MEDICARE, MEDICAID, SELFPAY ==
--- NOTE | 2023-03-18 07:00 | CTR_ITS ---
PROCEDURE INFORMATION: Exam: CTA Abdominal Aorta and Bilateral Lower Extremities (Run-off) With Contrast Exam date and time: 03/18/2023 7:17 AM Age: 72 years old Clinical indication: Condition or disease; Peripheral vascular disease; Prior surgery; Surgery date: 6+ months; Surgery type: Vascular bypass monique legs, RT foot x 3; Patient HX: RT leg pain from the knee down, HX of vascular bypass sg 10+ years ago; Additional info: Pvd TECHNIQUE: Imaging protocol: Computed tomographic angiography of the of the abdominal aorta, pelvis and bilateral lower extremities with contrast. 3D rendering (Not supervised by radiologist): MIP and/or 3D reconstructed images were created by the technologist. Radiation optimization: All CT scans at this facility use at least one of these dose optimization techniques: automated exposure control; mA and/or kV adjustment per patient size (includes targeted exams where dose is matched to clinical indication); or iterative reconstruction. Contrast material: OMNI 350; Contrast volume: 125 ml; Contrast route: INTRAVENOUS (IV); REPORTING DATA: Count of CT and Cardiac NM exams in prior 12 months: This patient has received 3 known CTs and 0 known cardiac nuclear medicine studies in the 12 months prior to the current study. COMPARISON: CT ang ches abdpel [id number] 08/09/2022 7:40 AM RADIATION DOSE METRICS: Total DLP (mGy-cm): 1317.47 FINDINGS: Aorta: Patient is status post aortobifemoral graft. The aorta, at the graft site measures 2.7 x 2.3 cm, unchanged from previous applying same measurement technique. The [place] aorta is patent to the bifurcation, the common0 iliac arteries are bilaterally occluded. 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 Mild stenoses identified in the superior mesenteric artery but patent. Renal arteries: There is an accessory right renal artery. The main right renal artery is severely stenotic proximally. Dense atherosclerosis involves the proximal left main renal artery with moderate stenosis. Right iliac arteries: The right common internal and external iliac arteries appear occluded. The graft is patent to the aortofemoral anastomosis. Right femoral/popliteal arteries: There is moderate stenosis at the right aortofemoral anastomosis. The common femoral artery is patent. There is multifocal severe stenosis/occlusion of the SFA with limited distal reconstitution. The profunda femoris is patent. Multifocal stenoses within the popliteal artery which is reconstituted via collaterals. Right infrapopliteal arteries: The anterior tibial artery is patent to the mid calf, the posterior tibial artery to the forefoot, and the peroneal artery to the ankle. Left iliac arteries: The left common external and internal iliac arteries appear occluded. The graft is patent to the aortofemoral anastomosis. Left femoral/popliteal arteries: . There is no significant narrowing at the left aortofemoral graft anastomosis. Multifocal cuhm-oh-qbjnblqm stenoses in the proximal left SFA with severe stenosis in the more distal SFA and popliteal artery. The profunda femoris is patent. Left infrapopliteal arteries: The anterior tibial artery is patent to the forefoot the peroneal artery to the distal calf and the posterior tibial artery to the forefoot. Other lower extremity findings: Moderate subcutaneous edema in the lower extremities. Small benign-appearing chronic deformity of the posterior cortex of the right lateral femoral condyle. No knee joint effusion noted. No acute fracture observed. A 4 mm subcutaneous radiodensity is present anterior to the left mid tibia and may represent calcification or chronic foreign body. There is no adjacent soft tissue edema. Lungs: The imaged lung bases demonstrate bibasilar scarring and/or atelectasis. Findings consistent with basilar emphysema. Pleural spaces: Small bilateral pleural effusions are present. Liver: Small hepatic hypodensities are present, too small to fully characterize, but statistically most likely small cysts. The liver is enlarged. Gallbladder and bile ducts: The gallbladder is unremarkable. The extrahepatic bile duct is not significantly dilated in size for age. Pancreas: Extensive calcific chronic pancreatitis. Approximately 2 cm cystic structure associated with the body of the pancreas appears unchanged. Spleen: The spleen is not enlarged, it is grossly unremarkable for the phase of contrast enhancement. Adrenal glands: Stable thickening of the adrenal glands. Kidneys and ureters: No hydronephrosis of either kidney. The right kidney is atrophic, similar to previous. There is a right renal hypodensity, too small to fully characterize, but statistically most likely a small cyst. Stomach and bowel: Delineation of bowel is limited by paucity of intra-abdominal fat and absence of oral contrast. Dilated small bowel at up to 3 cm is noted. Bowel is interposed between the anterior aspect of the liver in the right anterior abdominal wall. Appendix: The appendix is not definitely identified, but there are no pericecal inflammatory changes identified to specifically suggest acute appendicitis. Urinary bladder: Bladder is moderately distended, and bladder wall appears mildly thickened, raising question of chronic bladder outlet obstruction. Reproductive: The prostate is very enlarged and the seminal vesicles are enlarged, correlation for possible underlying neoplasm is again recommended. Intraperitoneal space: No significant volume of free fluid . Lymph nodes: No adenopathy identified. Bones/joints: Skeletal windows demonstrate moderate multilevel degenerative changes particularly at L1-L2 and T9-10. Minimal chronic appearing anterior wedge compression deformity of T12 vertebral body. Soft tissues: No fluid collection identified in the soft tissues. CT/CT angio abd aorta runof [id number] IMPRESSION: 1. Status post aortobifemoral graft which is widely patent. There is stenosis at the right lower extremity anastomosis. Additional findings of multifocal peripheral vascular disease in the lower extremities as detailed above. 2. Occlusion of the celiac axis with reconstitution of the common hepatic and splenic arteries via collaterals, similar to previous. 3. No hemodynamically significant stenosis identified in the SMA. 4. Severe stenosis of the main right renal artery, accessory right renal artery, and chronic atrophy of the right kidney, all similar to previous. Moderate stenosis of the proximal left renal artery. 5. Please see above additional comments.
[2023-03-18 07:14] LABS: Blood Urea Nitrogen 18 mg/dL (8-23)
[2023-03-18] MEDS: iohexol 350 mg/mL 500 mL Btl (per mL) IV (13:51)
== END 2023-03-18 06:32 | disposition home or self-care (01) ==
LOC: RAD 06:32
PROVIDERS: PCP Family Medicine; Visit Provider Thoracic Surgery (Cardiothoracic Vascular Surgery)
DX: I73.9 Peripheral vascular disease, unspecified (principal); Z95.820 Peripheral vascular angioplasty status with implants and grafts; M79.605 Pain in left leg; M79.604 Pain in right leg; I70.8 Atherosclerosis of other arteries; I70.1 Atherosclerosis of renal artery
CPT/HCPCS: 75635; 82565; 84520; Q9967

== ENCOUNTER 2023-04-01 12:45 | Emergency (ER) | payer MEDICARE, MEDICAID, SELFPAY ==
[2023-04-01 12:46] VITALS: BP 131/68; PULSE 98; RESP 18; TEMP 36.5; O2SAT 98; BMI 20.7
--- NOTE | 2023-04-01 12:47 | XRR_ITS ---
PROCEDURE INFORMATION: Exam: XR Right Foot Exam date and time: 04/01/2023 1:20 PM Age: 72 years old Clinical indication: Pain; Foot; Right TECHNIQUE: Imaging protocol: Radiologic exam of the right foot. Views: 3 or more views. COMPARISON: CT angio abd aorta runof 02007 03/18/2023 7:17 AM FINDINGS: Bones/joints: Normal. Soft tissues: Normal. XR/XR foot RT min 3V* [id number] IMPRESSION: No acute findings.
--- NOTE | 2023-04-01 13:31 | ED_ITS ---
HPI - Extremity Problem General: Chief complaint: Extremity Injury, Lower Stated complaint: right foot issues Time Seen by Provider: 04/01/23 13:29 Source: patient Mode of arrival: ambulatory Limitations: no limitations History of Present Illness: Patient is a 72-year-old male who presents to ED today along with his for concerns of right leg claudication and foot pain. This is an ongoing/chronic issue for patient. states they reportedly underwent CTA imaging of the extremity ordered by Dr. Kirby and they have yet to hear anything in regards to results and was just concerned. Patient has no new complaints today. He has been seeing both Dr. Kirby and Dr. Zendejas for this issue. Patient has a longstanding history of smoking. He has chronic peripheral arterial disease. He has a history of an aortobifemoral graft. MD Complaint: extremity pain Onset (ago): month(s) Pain Consistency: constant Location: right and lower extremity Radiation: none Relieving factors: nothing Exacerbating factors: walking Associated symptoms: Reports no associated symptoms; Deny fever(s) Context: history of peripheral vascular disease Review of Systems Const: Denies: fever(s), chills, body aches, fatigue or malaise Musc: Reports: extremity pain; Denies: neck pain, back pain, extremity swelling, joint pain, joint swelling, joint redness, joint warmth, joint stiffness or limited range of motion Neuro: Denies: numbness in extremities, weakness in extremities or sensory changes PFS ED PFSH: Medical History COPD (chronic obstructive pulmonary disease) Diabetes mellitus History of nonmelanoma skin cancer Low testosterone in male Carotid stenosis, bilateral Diabetes mellitus Peripheral arterial disease Coronary artery disease Erectile dysfunction Mitral regurgitation COPD (chronic obstructive pulmonary disease) Hypertension BPH (benign prostatic hyperplasia) Carotid stent occlusion Surgical History History of coronary angioplasty with insertion of stent last PCI to mid LAD by Dr. Cervantes 10/26/16 History of aorto-femoral bypass History of inguinal hernia repair RIGHT Hx of foot surgery RIGHT Hx of appendectomy S/P carotid endarterectomy Family History Father , AT AGE 63 CAD (coronary artery disease) Mother , AT AGE 93 No problems noted. Social History Smoking and tobacco/nicotine status: current every day tobacco/nicotine user cigarettes Packs smoked per day: 1 Years cigarettes smoked: 55 [ Other cigarette details: Started at age 16] Second hand smoke exposure: No Alcohol intake: former Former alcohol use details: occasional alcohol use in the past, denies any heavy alcohol use in the pas Substance/Drug Use: current Adopted: No Caregiver/support person: No Household members: none Housing: House Marital status: service: Yes branch: [employer] Current occupational status: disabled Current occupational exposures/hazards: No Do you think of yourself as: Straight/Heterosexual Current gender identity: Male Physical Exam Const: COMMON NORMALS: no acute distress, average body habitus, patient oriented x3, no limitations, alert and well nourished Extremity: COMMON NORMALS: full ROM, capillary refill normal, no joint enlargement, no clubbing, cyanosis or edema, no calf tenderness and no pedal edema GENERAL: Yes normal exam except as noted OTHER: diminished distal pulses bilaterally worse on the right which is consistent with previous documentation; both feet are equal color/temp and cap refill is <3 seconds bilaterally Neuro: COMMON NORMALS: patient oriented x3, moves all extremities, no focal motor deficits, no sensory deficits noted and gait normal SENSORIUM/ORIENTATION: Yes alert Course Vital Signs: Vital signs: Vital Signs Temperature 97.7 F 04/01/23 12:46 Pulse Rate 81 04/01/23 13:51 Respiratory Rate 18 04/01/23 13:51 Blood Pressure 124/48 04/01/23 13:51 Pulse Oximetry 97 04/01/23 13:51 Oxygen Delivery Me thod Room Air 04/01/23 13:51 MDM - Extremity (Nontraumatic) Medical Decision Making Patient has a longstanding history of peripheral arterial disease. He has no new symptoms today. Exam today seems consistent with previous documentation on file. CTA performed approximately 2 weeks ago was reviewed. His aortobifemoral graft is widely patent. He has multifocal peripheral vascular disease. At this time I do not have any concern for acute arterial occlusion/ischemic limb. Recommend he continue to follow-up with Dr. Kirby. I will place a case management referral to get him an appointment to go over CTA results and further management. Medical Records I reviewed the patient's medical records. Lab Data Radiology Impressions Foot X-Ray 04/01/23 12:47 IMPRESSION: No acute findings. All radiology interpretation(s) finalized by discharge Discharge Plan Discharge Patient Disposition: Home Clinical Impression: History of aorto-femoral bypass, Cigarette smoker, Peripheral arterial disease Condition: Stable Prescriptions: No Action Breztri Aerosphere 160-9-4.8 mcg/actuation HFA aerosol inhaler 2 inh inhalation BID Qty: 10.7 6RF (DME) Custom Orthotics Bilaterally See Rx Instructions .Route .MEDSUPPLY Qty: 1 0RF Rx Instructions: As directed magnesium 200 mg tablet 200 mg PO BID Qty: 60 2RF magnesium hydroxide [Dietz Milk of Magnesia] 400 mg/5 mL suspension 60 ml PO DAILY PRN (Reason: constipation) Qty: 355 0RF allopurinol 100 mg tablet 200 mg PO DAILY bupropion HCl 150 mg tablet extended release 24 hr 150 mg PO DAILY isosorbide mononitrate 30 mg tablet extended release 24 hr 15 mg PO DAILY clopidogrel 75 mg tablet 75 mg PO DAILY Hold Instructions: Resume on 02/16/22. acetaminophen 325 mg tablet 325 mg PO QID PRN tamsulosin 0.4 mg capsule 0.4 mg PO DAILY spironolactone 25 mg tablet 12.5 mg PO DAILY albuterol sulfate 90 mcg/actuation HFA aerosol inhaler 1 inh inhalation Q6H PRN (Reason: shortness of breath or wheezing) Qty: 8.5 3RF mometasone 0.1 % solution 1 applic topical DAILY Qty: 60 3RF Rx Instructions: apply a few drops to itchy spots on scalp daily as needed mupirocin 2 % ointment 1 applic topical BID Qty: 15 3RF atorvastatin 80 mg tablet See Rx Instructions .ROUTE .COMPLEX Qty: 90 1RF Dose Instruction: TAKE ONE TABLET BY MOUTH DAILY AT BEDTIME Rx Instructions: TAKE ONE TABLET BY MOUTH DAILY AT BEDTIME hydrocodone-acetaminophen 10-325 mg tablet 1 tab PO QID 30 Days Qty: 120 0RF lisinopril 10 mg tablet See Rx Instructions .ROUTE .COMPLEX Qty: 180 3RF Dose Instruction: TAKE ONE TABLET BY MOUTH TWICE DAILY Rx Instructions: TAKE ONE TABLET BY MOUTH TWICE DAILY trazodone 150 mg tablet See Rx Instructions .ROUTE .COMPLEX Qty: 60 0RF Dose Instruction: TAKE TWO TABLETS BY MOUTH AT BEDTIME Rx Instructions: TAKE TWO TABLETS BY MOUTH AT BEDTIME montelukast 10 mg tablet See Rx Instructions .ROUTE .COMPLEX Qty: 30 1RF Dose Instruction: TAKE ONE TABLET BY MOUTH DAILY Rx Instructions: TAKE ONE TABLET BY MOUTH DAILY Discharge Orders: Discharge ED (Routine); Ordered 04/01/23 Ordered By: Divine Cisse Referrals: Roge Branch, [Primary Care Provider] - Activity Restrictions/Additional Instructions: As we discussed I will place a case management referral to get you set up with an appointment with Dr. Kirby to go over your CTA results and to go over any further management options. Coding Level of Care Code ED Family Day Carer for Lissette Lindquist
[2023-04-01 13:51] VITALS: BP 124/48; PULSE 81; RESP 18; O2SAT 97
--- NOTE | 2023-04-01 14:35 | PC.NURSE ---
PEDAL PULSES DOPPLER BY THIS NURSE TO RIGHT FOOT. THIS NURSE HEARD NO PEDAL PULSES. PROVIDER NOTIFIED.
--- NOTE | 2023-04-04 08:51 | DCPLANNER ---
Message was sent to Dr. Kirby on 04/[address] [facility] to contact patient.
== END 2023-04-01 15:07 | disposition home or self-care (01) ==
PROVIDERS: Emergency Provider Physician Assistant; PCP Family Medicine
DX: I73.9 Peripheral vascular disease, unspecified (principal); F17.210 Nicotine dependence, cigarettes, uncomplicated; Z98.890 Other specified postprocedural states; Z79.02 Long term (current) use of antithrombotics/antiplatelets; J44.9 Chronic obstructive pulmonary disease, unspecified; E11.9 Type 2 diabetes mellitus without complications; I25.10 Atherosclerotic heart disease of native coronary artery without angina pectoris; I10 Essential (primary) hypertension; Z95.5 Presence of coronary angioplasty implant and graft
CPT/HCPCS: 73630; 99283

== ENCOUNTER 2023-04-21 05:57 | Outpatient (CLI) | payer MEDICARE, MEDICAID, SELFPAY ==
[2023-04-08 11:00] LABS: Basophils % 0.3 %; Eosinophils # 0.3 10^3/uL (0.0-0.8); Eosinophils % 3.8 %; Hematocrit 34.3 % (37-53); Lymphocytes # 0.9 10^3/uL (0.8-4.8); Mean Corpuscular HGB Conc 31.5 g/dL (30-55); Mean Corpuscular Hemoglobin 32.3 pg (27-33); Mean Corpuscular Volume 102.7 fl (82-101); Mean Platelet Volume 10.6 fL (7.4-10.4); Monocytes # 0.8 10^3/uL (0.2-0.9); Monocytes % 10.7 %; Neutrophils # 5.32 10^3/uL (1.8-7.7); Neutrophils % 72.8 %; Nucleated Red Blood Cells % 0 %; Platelet Count 200 10^3/cmm (157-399); Red Blood Count 3.34 10^6/uL (3.85-5.65); Red Cell Distribution Width 14.1 % (12.1-15.1); White Blood Count 7.31 10^3/uL (3.29-11.43)
[2023-04-08 11:20] LABS: INR 1.01 (0.83-1.21); Prothrombin Time (Patient) 13.6 Seconds (12.0-15.1)
[2023-04-08 11:22] LABS: Anion Gap 11.3 (5-19); Blood Urea Nitrogen 21 mg/dL (8-23); Calcium 8.9 mg/dL (8.5-10.5); Carbon Dioxide 28 mmol/L (22-29); Chloride 100 mmol/L (98-107); Glucose 114 mg/dL (65-115); Osmolality Calculated 282 mOsm/kg (285-295); Potassium 5.3 mmol/L (3.5-5.1); Sodium 134 mmol/L (136-145)
[2023-04-21] VITALS (34 sets, daily range): BP systolic 125–172; BP diastolic 47–106; PULSE 66–96; RESP 12–27; TEMP 36.6; O2SAT 96; BMI 20.3
--- NOTE | 2023-04-21 06:00 | XACV_ITS ---
Ht: 173 cm Wt: 63 kg BSA: 1.73 m2 Any Known Allergies: No known allergies Gender: Male : 1950 Exam Type: Invasive Peripheral Vascular Procedure(s): Procedure Description: Peripheral Cath Diagnostic Procedure Procedure Description: Abdominal aortic angiography Procedure Description: Lower extremities' angiography Exam Priority: Routine Abdominal Diagnostic Findings Abdominal aorta has significant plaque noted in the mid section. 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 Lower Extremity Diagnostic Findings Indication: Severe lifestyle limiting claudication/ Right foot resting pain/ Right leg VERA of 0.38. Right lower extremity findings: Right lower extremity aorto femoral graft is patent. At anastomosis site to the common femoral artery, there is a severe 95% stenosis. It is calcified. Ostium of right SFA is not visualized. Subtotal/total occlusion with collateral reconstitution of proximal SFA. Diffuse disease below. Profunda artery is patent and supplies collateral blood supply to popliteal artery and below the knee vessels. Popliteal artery is also diffusely diseased. Below the knee TP segment is patent. Patient has two-vessel runoff with patent peroneal and posterior tibial artery. Anterior tibial artery is occluded.. Left lower extremity findings: Left lower extremity aortofemoral graft is patent. At anastomosis site there is a severe 80% stenosis. Profunda artery is patent. SFA is patent. Has multiple 70-80% stenosis in proximal and mid segment. At the junction of SFA and popliteal artery there is a heavily calcified 90% stenosis. Popliteal artery is patent. TP segment is patent. Patient has three-vessel runoff with diffuse disease below the knee.. Conclusions Critical stenosis at anastamosis of aortofemoral bypass graft to right common femoral artery. SFA is subtotally/totally occluded. Leg is dependent on the blood flow through profunda. Given location and involvement of bypass graft,intervention of this vessel is high risk and will be best performed at center with vascular surgery. Case discussed with out cardiovascular surgeon who is also the referring physician,Dr Kirby, and shared decision made to refer him to center with more vascular surgery capabilities. Left lower extremity also has severe PAD. Recommendations We will refer to vascular surgery. Outpatient cardiology follow up in 2 weeks. Hemodynamic Data Phase:Rest AO : 174.0 / 52.0 ( 91.0 ) @ 7:57:00 AM 124.0 / 46.0 ( 79.0 ) @ 8:05:00 AM 144.0 / 50.0 ( 77.0 ) @ 8:19:00 AM Access Site Site: Left Femoral artery Sheath Size: 6 Fr Hemost... Method: Suture Hemost... Success: Successful Procedure Details Findings Procedure Consent Obtained. Admit Source: Out Patient. Pre-Procedure Time Out. Identified patient by full name and date of as verbalized by the patient/guarantor. Does the consent match the physician's order: Yes. Accurate & Complete Informed Consent: Yes. Inpatient/Outpatient History & Physical on Chart: Yes. If H&P is completed, is and addenduem needed: Yes; If yes, is the addendum complete: Yes. Visualize and Verify Site with Patient/Guarantor: N/A. Relevant Radiology Images available: Yes. The risks, benefits, and alternatives of sedation and/or procedure were discussed by physician. The patient agrees to continue. Procedure started. Current diagnosis: Severe Claudication. PERRLA. Strong, equal hand digital photo printer bilaterally. Lungs clear x 5 lobes. IV Site on Arrival: 20 gauge in the left anticubital. IV Fluids: 0.9% NaCl at 75ml/hr. 0 mL infused prior to engineering lab technician. Pre Procedural Pulses: bilateral radial was 2+. Pre Procedural Pulses: bilateral dorsalis pedis was Absent. Pre Procedural Pulses: bilateral posterior tibial was Doppled. Oxygen started at 2liters/min via nasal canula. bilateral groins was prepped with chloroprep then draped in the usual sterile fashion. Physician notified. Baseline sample Acquired. HR: 72 BPM. Physician arrived. Physician scrubbed in. Immediate Pre-Procedure Time Out. Correct Patient: Yes; Correct Procedure: Yes; Correct Site: Yes; Correct Patient Position: Yes; Correct Supplies: Yes; Dried Flammable Prep: Yes; Blood Products Available: No;. Lidocaine 1% infiltrated to the left groin. Arterial access obtained with micropuncture set. A 5Fr UF catheter in over wire. Abdominal aortogram performed in AP @ 10 mL/sec for a total of 30 mL. DSA performed to better visualize vessels below the right popliteal. DSA performed to better visualize the right popliteal artery. DSA performed of SFA and profunda. DSA performed to better visualize common femoral. Side port of sheath attached to Normal Saline flush at KVO to maintain patency. Glidewire in through UF catheter. Glidewire advanced to profunda. 6fr short sheath exchanged for 6fr 45cm sheath over glidewire. Nile cross catheter in over glidewire. Navicross catheter seated in common femoral. Glidewire out. Dr. Kirby called to engineering lab technician to review cine films. Navicross catheter out. standard wire in through sheath. 6fr 45cm flexor sheath exchanged for 6fr short sheath over standard wire. add inventory: 300cm command wire. Wire out. Sheath injected in Left common femoral artery and runoff performed. ACT drawn. Results 230 seconds. Therapeutic limits - pre-heparin administration 90-150 seconds and monitoring heparin during a vascular procedure >250 seconds. A Suture was successful obtaining hemostatsis at the Left Femoral artery insertion site. Sheath(s) sutured into position with 2-0 silk and sterile 4x4's and Op-site applied over the site. No oozing or signs and symptoms of hematoma noted. Arterial sheath flushed and connected to tranducer and pressure bag with heparinized saline. Post Procedure: Pulses reassessed and unchanged. PERRLA. Strong, equal hand digital photo printer bilaterally. No VTE prophylaxis required. Medication's Wasted: Heparin = 1000 unit. Medication's Wasted: Lidocaine 1% = 13 mL. Medication's Wasted: Other = Fentanyl 25mcg. Total IV fluids: 75 mL. Post-op diagnosis: Severe stenosis of aorta-femoral bypass anastomosis. Complications: None. Estimated blood loss: 5mL-10mL. Responsiveness - Normal response to verbal stimuli; alert and oriented, PERRLA. Airway - Unaffected, no intervention required; spontaneous ventilation. Circulation: W/N/L, pulses unchanged. Nausea/Vomiting: No. Procedure completed. Patient transferred by bed to 1st floor. Vital chart was stopped. Procedure Medications Start: 7:52 AM Stop: 7:52 AM Medication: Versed 1 mg and Fentanyl 25 mcg Amount: 1 Route: I.V. Start: 7:55 AM Stop: 7:55 AM Medication: Versed Amount: 1 mg Route: I.V. Start: 8:00 AM Stop: 8:00 AM Medication: Fentanyl Amount: 25 mcg Route: I.V. Start: 8:12 AM Stop: 8:12 AM Medication: Versed Amount: 1 mg Route: I.V. Start: 8:29 AM Stop: 8:29 AM Medication: Heparin Amount: 3000 units Start: 8:41 AM Stop: 8:41 AM Medication: Versed 1 mg and Fentanyl 25 mcg Amount: 1 Route: I.V. I, the attending physician, have reviewed and verified all procedure medications. Yes, all medications given per verbal order History/Risk Factors Hypertension: Yes Dyslipidemia: No Peripheral Arterial Disease (PAD): Yes Obesity: No Renal Disease: No Prior Interventions PCI: Yes CABG: No Valve Surgery: No Date of PCI: 10/26/2016 Report Signatures Finalized by Mathieu Tejeda MD on 04/22/2023 03:13 PM
[2023-04-21] MEDS: diphenhydrAMINE 50 mg Capsule PO (06:15)
[2023-04-21] MEDS: aspirin 325 mg Tablet PO (06:15)
--- NOTE | 2023-04-21 07:49 | W.PM.OPSFHP ---
Same Day Surgery H&P Indication for Procedure/HPI DATE OF PROCEDURE: April 21, 2023 CHIEF COMPLAINT/INDICATIONFOR SURGICAL PROCEDURE: Severe lifestyle limiting claudication/ Resting right foot pain PREOP DIAGNOSIS: Severe lifestyle limiting claudication/ Resting right foot pain PLANNED PROCEDURE: Operation Date: 04/21/23 07:00 Proposed Procedures p Peripheral Diagnostic 09318,I73.9(Not Applicable) - Mathieu Tejeda M.D Possible intervention 72-year-old man with past medical history of peripheral artery disease, AAA repair, CAD with prior stents has been referred for peripheral angiogram with possible intervention of right lower extremity. According to patient he has been having severe bilateral lifestyle limiting claudication. Right leg is much worse. VERA 0.38. Now has started experiencing resting pain with purplish discoloration of the foot. Pulses are not palpable Medications/Allergies* Home Medications Medication Instructions Recorded Confirmed Type acetaminophen 325 mg tablet 325 mg PO QID PRN Pain 11/25/22 04/21/23 History bupropion HCl 150 mg 24 hr tablet, 150 mg PO DAILY 11/25/22 04/21/23 History extended release clopidogrel 75 mg tablet 75 mg PO DAILY 11/25/22 04/21/23 History isosorbide mononitrate 30 mg 15 mg PO DAILY 11/25/22 04/21/23 History tablet,extended release 24 hr spironolactone 25 mg tablet 12.5 mg PO DAILY 11/25/22 04/21/23 History Allergies/Adverse Reactions Allergy/AdvReac Type Severity Reaction Status Date / Time No Known Allergies Allergy Verified 04/21/23 06:50 Current Medications: Generic Name Dose Route Start Last Admin Trade Name Freq PRN Reason Stop Dose Admin Sodium Chloride 1,000 mls @ 50 mls/hr 04/21/23 06:00 04/21/23 06:45 Sodium Chloride 0.9% IV 04/22/23 01:59 Not Given .Q20H ONE Pertinent History/Comorbid Conditions* Medical History (Updated 04/01/23 @ 14:48 by ANTOINETTE Bates) COPD (chronic obstructive pulmonary disease) Diabetes mellitus History of nonmelanoma skin cancer Low testosterone in male Carotid stenosis, bilateral Diabetes mellitus Peripheral arterial disease Coronary artery disease Erectile dysfunction Mitral regurgitation COPD (chronic obstructive pulmonary disease) Hypertension BPH (benign prostatic hyperplasia) Carotid stent occlusion Surgical History (Updated 04/01/23 @ 14:48 by ANTOINETTE Bates) History of coronary angioplasty with insertion of stent last PCI to mid LAD by Dr. Cervantes 10/26/16 History of aorto-femoral bypass History of inguinal hernia repair RIGHT Hx of foot surgery RIGHT Hx of appendectomy S/P carotid endarterectomy Family History (Updated 07/12/19 @ 14:31 by Dari Salas RN) Father, AT AGE 63 Mother, AT AGE 93 CAD (coronary artery disease) Father Social History Smoking and tobacco/nicotine status: current every day tobacco/nicotine user cigarettes Packs smoked per day: 1 Years cigarettes smoked: 55 [ Other cigarette details: Started at age 16] Second hand smoke exposure: No Alcohol intake: former Former alcohol use details: occasional alcohol use in the past, denies any heavy alcohol use in the pas Substance/Drug Use: current Adopted: No Caregiver/support person: No Household members: none Housing: House Marital status: service: Yes branch: [employer] Current occupational status: disabled Current occupational exposures/hazards: No Do you think of yourself as: Straight/Heterosexual Current gender identity: Male Pertinent Exam Findings alert, oriented x 3, clear to auscultation bilaterally and regular rate & rhythm Pulses are not palpable bilaterally Conscious Sedation Assessment PATIENT ASSESSED PRIOR TO SEDATION, WITH NO CHANGE NOTED: Yes AIRWAY EVAL/ANESTHESIA PLAN: normal airway, ASA III, Local Anesthesia, Risks, benefits & alternatives of sedation and/or procedure discussed and Patient agrees to continue as planned ADDITIONAL INFORMATION: Moderate sedation Recommendations Surgery/Procedure today (Peripheral angiogram with possible intervention) Coding Level of Care Code Acute Code for Lissette Lindquist
[2023-04-21] MEDS: clopidogrel 75 mg Tablet PO (09:53)
[2023-04-21 12:10] LABS: Partial Thromboplastin Time 31.7 SECONDS (23.9-36.7)
--- NOTE | 2023-04-21 15:00 | PC.NURSE ---
Sheath removed at 1423 per protocol. No issues or concerns. Dressing applied after pressure was applied x20 min. Nurse will continue to monitor.
--- NOTE | 2023-04-21 16:04 | PC.NURSE ---
Physician orders Hydrocodone 10-325 QID
[2023-04-21] MEDS: HYDROcodone-acetaminophen 10-325 mg Tablet 1 TAB PO (16:15)
== END 2023-04-21 19:52 | disposition home or self-care (01) ==
LOC: CCL 06:01 → CSU 17:11
PROVIDERS: PCP Family Medicine; Visit Provider Internal Medicine
DX: I70.221 Atherosclerosis of native arteries of extremities with rest pain, right leg (principal); I10 Essential (primary) hypertension; J44.9 Chronic obstructive pulmonary disease, unspecified; E11.9 Type 2 diabetes mellitus without complications; Z85.828 Personal history of other malignant neoplasm of skin; N40.0 Benign prostatic hyperplasia without lower urinary tract symptoms; F17.210 Nicotine dependence, cigarettes, uncomplicated
CPT/HCPCS: 36415; 75625; 75716; 80048; 85025; 85347; 85610; 85730; 96361; 96365; 99152; 99153; C1769; C1887; C1894; J1644; J2250; J3010; J7030; Q0163; Q9967

== ENCOUNTER → 2023-04-26 09:08 | Outpatient (BNVA) | payer MEDICARE, MEDICAID, SELFPAY | PROVIDERS: PCP Family Medicine; Visit Provider Podiatrist Foot & Ankle Surgery | DX: E11.8 Type 2 diabetes mellitus with unspecified complications (principal); E11.42 Type 2 diabetes mellitus with diabetic polyneuropathy; I73.9 Peripheral vascular disease, unspecified; R09.89 Other specified symptoms and signs involving the circulatory and respiratory systems | CPT/HCPCS: 99213 ==

== ENCOUNTER → 2023-04-28 13:50 | Outpatient (BNVA) | payer MEDICARE, MEDICAID, SELFPAY | PROVIDERS: PCP Family Medicine; Visit Provider Family Medicine | DX: R79.89 Other specified abnormal findings of blood chemistry (principal); I89.0 Lymphedema, not elsewhere classified; M10.9 Gout, unspecified; R53.82 Chronic fatigue, unspecified; E83.39 Other disorders of phosphorus metabolism; E83.42 Hypomagnesemia | CPT/HCPCS: 80053; 82607; 82746; 83735; 84100; 84443; 84550; 85027; 85651; 86140 ==

== ENCOUNTER 2023-05-08 11:42 | Emergency (ER) | payer MEDICARE, MEDICAID, SELFPAY ==
--- NOTE | 2023-05-08 11:44 | USR_ITS ---
PROCEDURE INFORMATION: Exam: US Scrotum Exam date and time: 05/08/2023 12:40 PM Age: 72 years old Clinical indication: Scrotum pain; Additional info: Swollen testicle TECHNIQUE: Imaging protocol: Real-time ultrasound of the scrotum and contents with color Doppler and image documentation. COMPARISON: CT jones garcial [id number] 08/09/2022 7:40 AM FINDINGS: Right testicle: Normal. No mass. No torsion. Normal vascular flow. The right testicle measures 3.3 x 2.3 x 2.1 cm. Left testicle: Normal. No mass. No torsion. Normal vascular flow. The left testicle measures 3.6 x 2.2 x 2.5 cm. Epididymides: Normal. There is a left spermatocele measuring 4 mm. Scrotum/soft tissues: There is thickening of the scrotal wall. There are bilateral hydroceles with debris on the left side. US/US scrotum [id number] IMPRESSION: 1. Bilateral hydroceles with debris on the left side. 2. No changes of epididymo-orchitis. 3. No changes of testicular torsion at the time of the examination.
[2023-05-08 12:11] VITALS: BP 158/52; PULSE 73; RESP 16; TEMP 36.6; O2SAT 94; BMI 22.6
--- NOTE | 2023-05-08 12:40 | ED_ITS ---
HPI - Male Genitourinary 2 General: Chief complaint: Urogenital-Male Stated complaint: swollen testicles Time Seen by Provider: 05/08/23 11:47 History of Present Illness: 72-year-old male presents emergency depa rtment complaints of swollen testicles. He states he also has burning on urination he does have significant swelling that started 1 day ago. He states his testicles are uncomfortable because of this excessive swelling. He does endorse increased urinary frequency and weak stream. He denies known injury or trauma. Associated symptoms: Reports dysuria Review of Systems 2 General: Reports: 10 or more systems reviewed and unremarkable except in HPI and below : Reports: dysuria, urinary frequency, urinary urgency and scrotal swelling PFSH ED 2 PFSH: Medical History COPD (chronic obstructive pulmonary disease) Diabetes mellitus History of nonmelanoma skin cancer Low testosterone in male Carotid stenosis, bilateral Diabetes mellitus Peripheral arterial disease Coronary artery disease Erectile dysfunction Mitral regurgitation COPD (chronic obstructive pulmonary disease) Hypertension BPH (benign prostatic hyperplasia) Carotid stent occlusion Surgical History History of coronary angioplasty with insertion of stent last PCI to mid LAD by Dr. Cervantes 10/26/16 History of aorto-femoral bypass History of inguinal hernia repair RIGHT Hx of foot surgery RIGHT Hx of appendectomy S/P carotid endarterectomy Family History Father , AT AGE 63 CAD (coronary artery disease) Mother , AT AGE 93 No problems noted. Social History Smoking and tobacco/nicotine status: current every day tobacco/nicotine user cigarettes Packs smoked per day: 1 Years cigarettes smoked: 55 [ Other cigarette details: Started at age 16] Second hand smoke exposure: No Alcohol intake: former Former alcohol use details: occasional alcohol use in the past, denies any heavy alcohol use in the pas Substance/Drug Use: current Adopted: No Caregiver/support person: No Household members: none Housing: House Marital status: service: Yes branch: [employer] Current occupational status: disabled Current occupational exposures/hazards: No Do you think of yourself as: Straight/Heterosexual Current gender identity: Male Physical Exam 2 Narrative: EXAM NARRATIVE: Constitutional: the patient appears well nourished and of normal development. Vital signs as documented. No acute distress at present. Alert and oriented-to person, place, time and situation. Head, eyes, ears, nose, mouth, throat: Normocephalic, atraumatic. Pupils-equal, round, reactive to light. No scleral icterus. Normal-appearing external ears. Normal appearing nasal turbinates, no drainage. No obvious oral lesions, posterior oropharynx without erythema or exudates. Neck: Supple, trachea is midline, no lymphadenopathy, no jugular venous distension, thyromegaly, or carotid bruits. Carotid upstrokes are brisk bilaterally. Lungs: clear to auscultation to all lung carrillo. Symmetrical rise and fall of chest, no obvious signs of increased work of breathing at present. Cardiac: Regular rate and rhythm, positive S1, S2. No murmurs, rubs or gallops that I can appreciate Abdomen: Soft, non-tender to palpation, normal active bowel sounds to all quadrants. No palpable masses, no organomegaly and abdominal bruits. Extremities: 2+ pulses in the upper extremities that are equal bilaterally, 2+ pulses in the lower extremities that are equal bilaterally. Non-edematous. Moves all extremities well, sensation to all extremities are noted. Skin: Warm, dry, intact. : Moderate scrotal edema noted. Course 2 Vital Signs: Vital signs: Vital Signs Temperature 97.9 F 05/08/23 12:11 Pulse Rate 73 05/08/23 12:11 Respiratory Rate 16 05/08/23 12:11 Blood Pressure 158/52 05/08/23 12:11 Pulse Oximetry 94 05/08/23 12:11 Oxygen Delivery Me thod Room Air 05/08/23 12:11 MDM - Male Medical Decision Making Physical exam completed document I will obtain a CBC and CMP as well as a urinalysis and ultrasound of the testicle/scrotum. Medical Records I reviewed the patient's medical records. Lab Data I reviewed the patient's lab results. 05/08/23 13:03 05/08/23 13:03 Radiology Impressions Scrotum Ultrasound 05/08/23 11:44 IMPRESSION: 1. Bilateral hydroceles with debris on the left side. 2. No changes of epididymo-orchitis. 3. No changes of testicular torsion at the time of the examination. Laboratory Results WBC 6.63 10^3/uL (3.29-11.43) 05/08/23 13:03 RBC 2.94 10^6/uL (3.85-5.65) L 05/08/23 13:03 Hgb 8.90 g/dL (11.27-16.99) L 05/08/23 13:03 Hct 28.6 % (37-53) L 05/08/23 13:03 MCV 97.3 fl (82-101) 05/08/23 13:03 MCH 30.3 pg (27-33) 05/08/23 13:03 MCHC 31.1 g/dL (30-55) 05/08/23 13:03 RDW 14.9 % (12.1-15.1) 05/08/23 13:03 Plt Count 193 10^3/cmm (157-399) 05/08/23 13:03 MPV 10.4 fL (7.4-10.4) 05/08/23 13:03 Neut % (Auto) 74.2 % 05/08/23 13:03 Lymph % (Auto) 11.9 % 05/08/23 13:03 [place] % (Auto) 11.8 % 05/08/23 13:03 Eos % (Auto) 1.5 % 05/08/23 13:03 Baso % (Auto) 0.3 % 05/08/23 13:03 Neut # (Auto) 4.92 10^3/uL (1.8-7.7) 05/08/23 13:03 Lymph # (Auto) 0.8 10^3/uL (0.8-4.8) 05/08/23 13:03 [place] # (Auto) 0.8 10^3/uL (0.2-0.9) 05/08/23 13:03 Eos # (Auto) 0.1 10^3/uL (0.0-0.8) 05/08/23 13:03 Baso # (Auto) 0.0 10^3/uL (0.0-0.1) 05/08/23 13:03 Nucleated RBC % (auto) 0 % 05/08/23 13:03 Nucleated RBCs # 0.0 /100WBC 05/08/23 13:03 Sodium 134 mmol/L (136-145) L 05/08/23 13:03 Potassium 4.1 mmol/L (3.5-5.1) 05/08/23 13:03 Chloride 99 mmol/L (98-107) 05/08/23 13:03 Carbon Dioxide 28 mmol/L (22-29) 05/08/23 13:03 Anion Gap 11.1 (5-19) 05/08/23 13:03 BUN 21 mg/dL (8-23) 05/08/23 13:03 Creatinine 1.0 mg/dL (0.7-1.2) 05/08/23 13:03 GFR Calculation Not Reportable 05/08/23 13:03 Glucose 176 mg/dL (65-115) H 05/08/23 13:03 Calculated Osmolality 285 mOsm/kg (285-295) 05/08/23 13:03 Calcium 8.0 mg/dL (8.5-10.5) L 05/08/23 13:03 Total Bilirubin 0.2 mg/dL (0.15-1.2) 05/08/23 13:03 AST 27 U/L (0-40) 05/08/23 13:03 ALT 39 U/L (0-41) 05/08/23 13:03 Alkaline Phosphatase 96 U/L (40-130) 05/08/23 13:03 Total Protein 5.4 g/dL (6.6-8.7) L 05/08/23 13:03 Albumin 2.9 g/dL (3.5-5.2) L 05/08/23 13:03 Globulin 2.5 g/dL (1.3-4.6) 05/08/23 13:03 Urine Color Yellow (Yellow) 05/08/23 14:44 Urine Appearance Clear (CLEAR) 05/08/23 14:44 Urine pH 7 (5-7) 05/08/23 14:44 Ur Specific [place] 1.010 (1.005-1.030) 05/08/23 14:44 Urine Protein Neg (Negative) 05/08/23 14:44 Urine Glucose (UA) Norm (Normal) 05/08/23 14:44 Urine Ketones Negative (Negative) 05/08/23 14:44 Urine Blood Neg (Negative) 05/08/23 14:44 Urine Nitrate Negative (Negative) 05/08/23 14:44 Urine Bilirubin Neg (Negative) 05/08/23 14:44 Urine Urobilinogen Norm mg/dL (Negative) 05/08/23 14:44 Ur Leukocyte Esterase Negative (Negative) 05/08/23 14:44 Urine RBC None /hpf (0-2) 05/08/23 14:44 Urine WBC 0-4 /hpf (0-5) H 05/08/23 14:44 Ur Squamous Epith Cells None /hpf (0-5) 05/08/23 14:44 Amorphous Sediment Not Reportable 05/08/23 14:44 Urine Bacteria Trace /hpf (NONE) 05/08/23 14:44 All radiology interpretation(s) finalized by discharge Discharge Plan Discharge Patient Disposition: Home Clinical Impression: Edema of scrotum Condition: Stable Prescriptions: New Lasix 20 mg tablet 20 mg PO DAILY 5 Days Qty: 5 0RF No Action Breztri Aerosphere 160-9-4.8 mcg/actuation HFA aerosol inhaler 2 inh inhalation BID Qty: 10.7 6RF (DME) Custom Orthotics Bilaterally See Rx Instructions .Route .MEDSUPPLY Qty: 1 0RF Rx Instructions: As directed magnesium hydroxide [Dietz Milk of Magnesia] 400 mg/5 mL suspension 60 ml PO DAILY PRN (Reason: constipation) Qty: 355 0RF bupropion HCl 150 mg tablet extended release 24 hr 150 mg PO DAILY isosorbide mononitrate 30 mg tablet extended release 24 hr 15 mg PO DAILY clopidogrel 75 mg tablet 75 mg PO DAILY Hold Instructions: Resume on 02/16/22. acetaminophen 325 mg tablet 325 mg PO QID PRN (Reason: Pain) spironolactone 25 mg tablet 12.5 mg PO DAILY albuterol sulfate 90 mcg/actuation HFA aerosol inhaler 1 inh inhalation Q6H PRN (Reason: shortness of breath or wheezing) Qty: 8.5 3RF prednisone 20 mg tablet See Rx Instructions .Route .COMPLEX Qty: 20 0RF Rx Instructions: 3 tabs x 3 days, then 2 tabs x 3 days, then 1 tab x 3 days, then 1/2 tab x 3 days. hydrocodone-acetaminophen 10-325 mg tablet 1 tab PO QID 30 Days Qty: 120 0RF CoQ-10 30 mg Capsule 30 mg PO DAILY Vitamin D3 25 mcg (1,000 unit) Capsule 25 mcg PO DAILY atorvastatin 80 mg tablet 80 mg PO BEDTIME allopurinol 100 mg tablet 200 mg PO DAILY tamsulosin 0.4 mg capsule 0.4 mg PO DAILY trazodone 150 mg tablet 300 mg PO BEDTIME lisinopril 10 mg tablet 10 mg PO BID montelukast 10 mg tablet 10 mg PO DAILY Discharge Orders: Discharge ED (Routine); Ordered 05/08/23 Ordered By: Oleksandr Jay Referrals: Roge Branch, [Primary Care Provider] - Discharge Diet: Advance as tolerated and Low Salt Discharge Activity: Resume usual activity Patient Instructions: Opioid Safety, Pain Management Activity Restrictions/Additional Instructions: Activity Restrictions/Additional Instructions: Thank you for choosing [facility] for your healthcare needs today. Please realize that you were seen in the Emergency Department and that we are providing you with an emergency medical screening exam and this may not be a complete and all inclusive of all the testing and or medical work-up that you may need to determine your ailment or severity of your illness. It is very important that you follow-up as instructed with your Primary care provider or Specialist for additional evaluation and to discuss your medical treatment plan. You may return to the Emergency Department should you have concerns or if your condition changes or worsens in any way. You may choose any urologist that you are comfortable with I have provided 2 options that you may contact or you may contact any urologist that you are comfortable with for your follow-up. Call to make a Follow-up appointment: [facility] [address] [place] [address] [facility] [address] [place] [address] Phone--[phone] Coding Level of Care Code ED Technology Sales Consultant for Lissette Lindquist
[2023-05-08 13:22] LABS: Basophils % 0.3 %; Eosinophils # 0.1 10^3/uL (0.0-0.8); Eosinophils % 1.5 %; Hematocrit 28.6 % (37-53); Lymphocytes # 0.8 10^3/uL (0.8-4.8); Lymphocytes % 11.9 %; Mean Corpuscular HGB Conc 31.1 g/dL (30-55); Mean Corpuscular Hemoglobin 30.3 pg (27-33); Mean Corpuscular Volume 97.3 fl (82-101); Mean Platelet Volume 10.4 fL (7.4-10.4); Monocytes # 0.8 10^3/uL (0.2-0.9); Monocytes % 11.8 %; Neutrophils # 4.92 10^3/uL (1.8-7.7); Neutrophils % 74.2 %; Nucleated Red Blood Cells % 0 %; Platelet Count 193 10^3/cmm (157-399); Red Blood Count 2.94 10^6/uL (3.85-5.65); Red Cell Distribution Width 14.9 % (12.1-15.1); White Blood Count 6.63 10^3/uL (3.29-11.43)
[2023-05-08 13:45] LABS: Alanine Aminotransferase 39 U/L (0-41); Albumin Level 2.9 g/dL (3.5-5.2); Alkaline Phosphatase 96 U/L (40-130); Anion Gap 11.1 (5-19); Aspartate Amino Transferase 27 U/L (0-40); Blood Urea Nitrogen 21 mg/dL (8-23); Carbon Dioxide 28 mmol/L (22-29); Chloride 99 mmol/L (98-107); Globulin 2.5 g/dL (1.3-4.6); Glucose 176 mg/dL (65-115); Osmolality Calculated 285 mOsm/kg (285-295); Potassium 4.1 mmol/L (3.5-5.1); Sodium 134 mmol/L (136-145); Total Bilirubin 0.2 mg/dL (0.15-1.2); Total Protein 5.4 g/dL (6.6-8.7)
[2023-05-08 14:56] LABS: Urine Color Yellow (Yellow)
[2023-05-08 14:57] LABS: Bilirubin Urine Neg (Negative); Blood Urine Neg (Negative); Glucose Urine UA Norm (Normal); Ketones Urine Negative (Negative); Leukocyte Esterase Urine Negative (Negative); Nitrate Urine Negative (Negative); Protein Urine Neg (Negative); Urine Appearance Clear (CLEAR); Urobilinogen Urine Norm (Negative); pH Urine 7 (5-7)
[2023-05-08 15:03] LABS: Add Urine Culture? No; Bacteria Urine TRACE /hpf; WBC Urine 0-4 /hpf (0-5)
== END 2023-05-08 16:35 | disposition home or self-care (01) ==
PROVIDERS: Emergency Provider Internal Medicine; PCP Family Medicine
DX: N50.89 Other specified disorders of the male genital organs (principal); Z79.02 Long term (current) use of antithrombotics/antiplatelets; F17.210 Nicotine dependence, cigarettes, uncomplicated; J44.9 Chronic obstructive pulmonary disease, unspecified; E11.9 Type 2 diabetes mellitus without complications; I25.10 Atherosclerotic heart disease of native coronary artery without angina pectoris; I10 Essential (primary) hypertension; Z95.5 Presence of coronary angioplasty implant and graft
CPT/HCPCS: 36415; 76870; 80053; 81001; 85025; 99284